=== PATIENT | female | born 1990 | race Two or more races ===

== ENCOUNTER → 2020-10-27 14:06 | Outpatient (BNVA) | payer OTHER, SELFPAY | PROVIDERS: PCP Internal Medicine; Visit Provider Obstetrics & Gynecology | DX: Z13.89 Encounter for screening for other disorder (principal) | CPT/HCPCS: 58301; 99212 ==

== ENCOUNTER → 2021-02-04 11:29 | Outpatient (BNVA) | payer OTHER, SELFPAY | PROVIDERS: PCP Internal Medicine; Visit Provider Internal Medicine | DX: E55.9 Vitamin D deficiency, unspecified (principal); E78.01 Familial hypercholesterolemia; E28.2 Polycystic ovarian syndrome; E03.9 Hypothyroidism, unspecified | CPT/HCPCS: 99212 ==

== ENCOUNTER 2021-02-05 07:49 | Outpatient (REF) | payer OTHER, SELFPAY ==
[2021-02-05 08:50] LABS: Glucose Fasting 94 mg/dL (60-99)
[2021-02-05 08:51] LABS: Estimated Average Glucose 100 mg/dL; Hemoglobin A1c % 5.1 %
[2021-02-05 09:16] LABS: Alanine Aminotransferase 16 U/L (0-31); Albumin Level 4.4 g/dL (3.5-5.0); Alkaline Phosphatase 81 U/L (39-117); Anion Gap 12 (12-20); Aspartate Amino Transferase 27 U/L (5-31); Bilirubin Total 1.1 mg/dL (0.0-1.0); Blood Urea Nitrogen 7 mg/dL (9-16); Calcium 9.6 mg/dL (8.4-10.2); Carbon Dioxide 23 mmol/L (22-29); Chloride 109 mmol/L (96-108); Cholesterol 329 mg/dL; Estimated Glomerular Filt Rate > 60; Glucose Random 94 mg/dL (60-115); HDL Cholesterol 48 mg/dL; LDL Cholesterol Calculated 263 mg/dl; Sodium 140 mmol/L (135-145); Total Protein 7.7 g/dL (6.5-8.0); Triglycerides 93 mg/dL
[2021-02-05 09:21] LABS: Free T4 (Free Thyroxine) 1.34 ng/dL (0.71-1.85); HCG Quantitative < 2 mIU/mL; Thyroid Stimulating Hormone 0.12 uIU/mL (0.32-4.0); Vitamin D 25-OH Total 12.2 ng/mL (>30)
[2021-02-05 10:05] LABS: Cortisol Random 11.1 ug/dL
[2021-02-05 10:50] LABS: Glucose 1 Hour 101 mg/dL
[2021-02-05 11:12] LABS: Glucose 2 Hour 107 mg/dL
[2021-02-06 11:50] LABS: LDL Cholesterol Direct 266 mg/dL (<100)
[2021-02-06 19:22] LABS: Sex Hormone Binding Globulin 58 nmol/L (17-124)
[2021-02-07 04:52] LABS: Follicle Stimulating Hormone 7.3 mIU/mL; Lutenizing Hormone 4.8 mIU/mL; Prolactin 10.4 ng/mL
[2021-02-07 09:21] LABS: DHEA Sulfate 160 mcg/dL (18-391)
[2021-02-11 13:16] LABS: Testosterone, Free 3.8 pg/mL (0.1-6.4); Testosterone, Total 40 ng/dL (2-45)
[2021-02-12 15:51] LABS: Androstenedione 147 ng/dL
[2021-02-14 03:42] LABS: Estradiol Free 1.08 pg/mL; Estradiol, Ultrasensitive 51 pg/mL
[2021-02-23 16:01] LABS: Adrenocorticotropic Hormone 20 pg/mL (6-50)
== END 2021-02-05 07:50 | disposition home or self-care (01) ==
LOC: HO.10HDL 07:49
PROVIDERS: Visit Provider Internal Medicine
DX: E28.2 Polycystic ovarian syndrome (principal); E03.9 Hypothyroidism, unspecified; E78.01 Familial hypercholesterolemia; E55.9 Vitamin D deficiency, unspecified
CPT/HCPCS: 36415; 80053; 80061; 82024; 82157; 82306; 82533; 82627; 82670; 82681; 83001; 83002; 83036; 83498; 83721; 84146; 84270; 84402; 84403; 84439; 84443; 84702

== ENCOUNTER 2021-02-20 09:00 | Outpatient (REF) | payer OTHER, SELFPAY ==
--- NOTE | ~2021-02-20 | US_ITS ---
EXAMINATION: US SOFT TISSUE NECK CLINICAL INFORMATION: Hypothyroidism COMPARISON: Previous thyroid ultrasound most recent the same day TECHNIQUE: Ultrasound of the neck soft tissues is performed with high- frequency matthew-scale imaging and color Doppler. FINDINGS: THYROID BED: Prior thyroidectomy. No residual thyroid tissue demonstrated in the thyroid bed. No cystic or solid nodules demonstrated in the thyroid bed. RIGHT NECK SOFT TISSUES: Scattered nodes are present bilaterally. The largest node on the right level 2 and demonstrates cortical thickening. Lymph nodes otherwise demonstrate normal architecture with normal fatty hilus, normal cortical thickness, and no cystic change or calcification. No abnormal color flow. The largest nodes are as follows: Level 2: 2.4 x 0.9 x 1.5 cm. Cortical thickening otherwise normal ras architecture. Level 2:1.4 x 0.5 x 1.9 cm. Normal abdominal architecture. LEFT NECK SOFT TISSUES: Scattered architecturally normal nodes are present. The nodes show normal fatty hilus, normal cortical thickness, and no cystic change or calcification. No abnormal color flow. The largest nodes are as follows: Level 1B: 2.1 x 0.6 x 1.4 cm. Normal ras architecture. US/US soft tiss head and/or neck IMPRESSION: 1. Bilateral cervical lymphadenopathy. There are 3 enlarged lymph nodes, one of which demonstrates abnormal ras architecture with cortical thickening. 2. If clinically indicated further evaluation of the neck soft tissues and nodes may be performed with CT soft tissue neck with intravenous contrast.
--- NOTE | ~2021-02-20 | US_ITS ---
EXAMINATION: US THYROID CLINICAL INFORMATION: Hypothyroidism, unspecified. COMPARISON: Ultrasound soft tissue head/neck thyroid dated 10/19/2018. TECHNIQUE: Linear transducer grayscale and color Doppler examination with attention to the region of the thyroid. FINDINGS: SIZE: Measurements of the thyroid lobes and nodules are given in sagittal, anteroposterior and transverse dimensions respectively. Right Thyroid Lobe: 4.0 x 1.4 x 0.9 cm, volume 2.5 mL. Previously 4.5 x 1.5 x 1.2 cm, volume 4.2 mL. Parenchyma: The gland echotexture is heterogeneous. Thyroid vascularity is increased. Left Thyroid Lobe: 4.0 x 1.3 x 1.5 cm, volume 4.1 mL. Previously 4.2 x 1.1 x 1.5 cm, volume 3.6 mL. Parenchyma: The gland echotexture is heterogeneous. Thyroid vascularity is increased. Isthmus: 0.17 cm in maximum AP dimension. Previously 0.3 cm. Comparison of the nodules with prior exam is difficult. Estimated total number of nodules greater than or equal to 1 cm: 0. Customer Service Sales Consultant nodules versus areas of gland heterogeneity are described as follows: 1. Location: Right inferior. Size: 0.5 x 0.5 x 0.6 cm, volume 0.1 mL. Previously: Not seen on the previous study. Nodule characteristics: Composition: Spongiform (0). Echogenicity: Anechoic (0). Shape: Not taller than wide (0). Margins: Smooth (0). Echogenic Foci: None (0). ACR TI-RADS total points: 0 ACR TI-RADS category: 1 2. Location: Right inferior. Size: 0.7 x 0.5 x 0.5 cm, volume 0.1 mL. Previously: 0.8 x 0.5 x 0.5 cm, volume 0.1 mL. Nodule characteristics: Composition: Spongiform (0). Echogenicity: Anechoic (0). Shape: Not taller than wide (0). Margins: Smooth (0). Echogenic Foci: None (0). ACR TI-RADS total points: 0 ACR TI-RADS category: 1 Significant change in size (>/= 20% in 2 dimensions and minimal increase of 2 mm or 50% or greater increase in volume): Change in features: Change in ACR TI-RADS risk category: 3. Location: Left mid. Size: 0.6 x 0.61 x 0.4 cm, volume 0.1 mL. Previously: 0.5 x 0.4 x 0.4 cm, volume 0.04 mL. Nodule characteristics: Composition: Spongiform (0). Echogenicity: Anechoic (0). Shape: Not taller than wide (0). Margins: Smooth (0). Echogenic Foci: None (0). ACR TI-RADS total points: 0 ACR TI-RADS category: 1 Significant change in size (>/= 20% in 2 dimensions and minimal increase of 2 mm or 50% or greater increase in volume): Change in features: Change in ACR TI-RADS risk category: NODES: See separate soft tissue neck ultrasound performed the same day. US/US thyroid IMPRESSION: Small heterogeneous hypervascular thyroid gland. Bilateral small nodules versus areas of gland heterogeneity. Comparison of nodules with previous exam is difficult. ACR TI-RADS RECOMMENDATION REFERENCE: Ultrasound-guided fine-needle aspiration, followup ultrasound, no further follow up. * TR1 (0 point) and TR 2 (2 points): No FNA or follow up * TR3 (3 points): FNA if more than or equal to 2.5 cm in maximum dimension, followup ultrasound in 1, 3 and 5 years if 1.5 to 2.4 cm in maximum dimension. * TR4 (4-6 points): FNA if more than or equal to 1.5 cm in maximum dimension, followup ultrasound in 1, 2, 3 and 5 years if 1 to 1.4 cm in maximum dimension. * TR5 (more than or equal to 7 points): FNA if more than or equal to 1 cm in maximum dimension, followup ultrasound every year for 5 years if 0.5 to 0.9 cm in maximum dimension. * TR3, TR4 or TR5 nodules that are below the size threshold for follow up receive no follow up.
== END 2021-02-20 09:01 | disposition home or self-care (01) ==
LOC: HO.HMGCX 09:00
PROVIDERS: PCP Internal Medicine; Visit Provider Internal Medicine
DX: E03.9 Hypothyroidism, unspecified (principal)
CPT/HCPCS: 76536

== ENCOUNTER 2021-04-07 07:45 | Outpatient (REF) | payer OTHER, SELFPAY ==
[2021-04-07 11:41] LABS: MANUAL DIFF FLAG NO
[2021-04-07 11:45] LABS: Basophils Absolute Auto 0.1 X10*3/uL (0.0-0.2); Basophils Percent Auto 0.5 % (0-2); Eosinophils Absolute Auto 0.2 X10*3/uL (0.0-0.4); Eosinophils Percent Auto 2.4 % (0-4); Hematocrit 32.8 % (37.0-47.0); Hemoglobin 10.2 g/dl (12.0-16.0); Imm Gran Abs Auto 0.02 X10*3/uL (0.00-0.03); Imm Gran Pct Auto 0.2 % (0.0-0.4); Lymphocytes Absolute Auto 2.3 X10*3/uL (1.2-4.9); Lymphocytes Percent Auto 24.7 % (20-40); Mean Corpuscular HGB Conc 31.1 g/dl (31.0-35.0); Mean Corpuscular Hemoglobin 25.5 pg (27.0-33.0); Mean Platelet Volume 9.7 fL (9.4-12.3); Monocytes Absolute Auto 0.6 X10*3/uL (0.1-1.2); Monocytes Percent Auto 6.7 % (2-11); Neutrophils Percent Auto 65.5 % (45-73); Platelet Count 413 X10*3/uL (160-400); Red Cell Distribution Width 16.5 % (11.0-16.0); White Blood Count 9.2 X10*3/uL (4.8-10.8)
[2021-04-07 12:28] LABS: Erythrocyte Sedimentation Rate 23 MM/HR (0-20)
[2021-04-07 12:31] LABS: Free T4 (Free Thyroxine) 1.22 ng/dL (0.71-1.85); Thyroid Stimulating Hormone 0.16 uIU/mL (0.32-4.0)
[2021-04-07 12:34] LABS: Alanine Aminotransferase 12 U/L (0-31); Albumin Level 4.3 g/dL (3.5-5.0); Alkaline Phosphatase 87 U/L (39-117); Aspartate Amino Transferase 14 U/L (5-31); Bilirubin Direct 0.3 mg/dL (0.0-0.5); Total Protein 7.5 g/dL (6.5-8.0)
[2021-04-09 05:31] LABS: Triiodothyronine T3 Total 104 ng/dL (76-181)
[2021-04-10 10:42] LABS: Anti Nuclear Antibody Screen POSITIVE (NEGATIVE); Anti Nuclear Antibody Titer 1:40 titer
== END 2021-04-07 07:46 | disposition home or self-care (01) ==
LOC: HO.HMGCLDS 07:45
PROVIDERS: Absent Provider Internal Medicine; PCP Internal Medicine; Visit Provider Psychiatry & Neurology Neurology
DX: E03.9 Hypothyroidism, unspecified (principal); D64.9 Anemia, unspecified
CPT/HCPCS: 36415; 80076; 84439; 84443; 84480; 85025; 85652; 86038; 86039

== ENCOUNTER 2021-05-22 15:44 | Emergency (ER) | payer OTHER, SELFPAY ==
--- NOTE | 2021-05-22 15:50 | ED.PSYCH ---
HPI - Psych General Chief Complaint: Psychiatric Symptoms Stated Complaint: CRISIS Time Seen by Provider: 05/22/21 15:49 Source: patient Mode of arrival: ambulatory Limitations: no limitations History of Present Illness HPI Narrative: This is a 31-year-old female past medical history significant for hypothyroidism, depression and anxiety presenting with anxiety, depression and suicidal ideaiton with plan X1 week. Patient reports to me that lately she has been having issues with her spouse, causing relationship complex. She tells me she lives at home with her spouse and 3 children she feels safe at home however there are relationship issues that have been occurring over the past week. She tells me I do not know how to cope with these issues . She states that recently she was started on Lexapro she was initially on 5 mg and she has been titrated up to 10 mg in today was her 1st day taking 20 mg with. She tells me that she feels as though the Lexapro is working however when this relationship issue arose she feels as though Lexapro was not enough. She tells me that she is suicidal, she called the suicide hotline a few days ago, she is feeling hopeless. She tells me that she has been thinking about her plan at this time she has 2 to from plan she is considering 1 of them is driving her car [place] a [place], [place]. Her other plan is to financial services associate a street and get hit by a car. However, she tells me that she has not followed through with these plans because of these plans to not successfully happen she will be injured and reliant on others which she does not want. She tells me that she saw her PCP yesterday who is aware of her condition. She tells me that she was set up to see a therapist on June 09 through [facility]. She tells me at times she hears sounds like things dropping on the ground and at times she sees patients shadows in the room which caused her to go back and check to see if somebody is really there. She denies tactile hallucinations. She also denies drugs, alcohol and tobacco use. She has no medical complaints at this time. No homicidal ideation. Patient has no previous psychiatric admissions. Patient was brought down from a routine neuro appointment and her provider was concerned for her well-being. At this time patient will be placed on a Section 12 to ensure patient's safety as she is in imminent threat to herself. complaint: suicidal ideation, feels depressed, anxiety and hallucinations (visual and auditory) Onset (ago): week(s) (1) Duration: constant History of same: No Relieving factors: none Exacerbating factors: other (Relationship issues.) Context: new medication(s) (Her Lexapro dose was recently changed to 20 mg) Associated psychiatric symptoms: depression, suicidal ideation and racing thoughts Associated symptoms: denies other symptoms Treatments prior to arrival: none If self harm: admits thoughts of self harm and has plan Related Data Home Medications Medication Instructions Recorded Confirmed cetirizine 10 mg tablet (Zyrtec) 10 mg PO DAILY PRN 08/01/20 02/04/21 budesonide-formoterol HFA 160 2 puff PO BID 02/04/21 02/04/21 mcg-4.5 mcg/actuation aerosol inhaler (Symbicort) Previous Rx's Medication Instructions Recorded atorvastatin 80 mg tablet 80 mg PO BEDTIME 30 Days #30 tab 02/05/21 ezetimibe 10 mg tablet 10 mg PO DAILY 30 Days #30 tab 02/05/21 levothyroxine 75 mcg tablet 75 mcg PO DAILY 30 Days #30 tab 04/07/21 Ventolin HFA 90 mcg/actuation 2 puff INHALATION Q6H PRN #18 g NS 05/21/21 aerosol inhaler (albuterol sulfate) escitalopram oxalate 20 mg tablet 20 mg PO DAILY #30 tab 05/21/21 (Lexapro) ferrous fumarate 324 mg (106 mg 324 mg PO DAILY #30 tab 05/21/21 iron) tablet lorazepam 0.5 mg tablet 0.5 mg PO DAILY PRN #7 tab 05/21/21 Allergies Allergy/AdvReac Type Severity Reaction Status Date / Time pantoprazole Allergy Unknown chest pain Verified 02/04/21 11:44 diphenhydramine Allergy Hives Verified 02/04/21 11:44 [From Benadryl] esomeprazole [From NEXIUM] AdvReac Mild DIARRHEA Verified 02/04/21 11:44 birch trees Allergy Unknown Sneezing Uncoded 02/04/21 11:44 oak trees Allergy Unknown nasal Uncoded 02/04/21 11:44 congestion SEASONAL ALLERGIES Allergy Unknown UNKNOWN Uncoded 02/04/21 11:44 Review of Systems Review of Systems: Constitutional : No Fever, No Chills ENT/Mouth : No Ear Pain, No Nasal Congestion, No sore throat Eyes: No Eye Pain, No Swelling, No Redness Cardiovascular : No Chest Pain, No SOB Respiratory : No Cough, No Sputum, No Dyspnea Gastrointestinal : No Nausea, No Vomiting, No Diarrhea, No Hematochezia, No Melena Genitourinary : No Dysuria, No Urinary Frequency, No Hematuria Musculoskeletal : No Myalgias Skin : No Skin Lesions, No rash Neuro : No Weakness, No Numbness, No Paresthesias, No Dizziness, No Headache Psych : positive Anxiety, positive Depression, positive SI, No HI Heme/Lymph: No Lymphadenopathy Endocrine : No Polyuria, No Polydipsia All other systems reviewed and are negative Yes all other systems are reviewed and are negative [facility] Past Medical History Attestation statement: The following information was validated with the patient. Source: old records reviewed and nursing notes reviewed Medical History Allergy to cats Familial hypercholesterolemia Hypothyroidism Multiple environmental allergies PCOS (polycystic ovarian syndrome) Vitamin D deficiency Surgical History History of removal of ovarian cyst Family History Family History Father Hyperlipidemia Mother Hyperlipidemia Hypertension Diabetes CVD (cardiovascular disease) Social History Social History Alcohol intake: never Patient Tobacco Use Status: Never used Tobacco e-Cigarette/Vaping Use: Never Used Use of substances other than those prescribed or required for medical reasons: No Advance Directives: No Advance Directives Information Provided: Yes Physical Exam Vital Signs: Vital Signs: Last Vital Signs Temp 99.5 F 05/22/21 15:56 Pulse 83 05/22/21 15:56 Resp 16 05/22/21 15:56 BP 114/74 05/22/21 15:56 Pulse Ox 100 05/22/21 15:56 BMI result Body Mass Index 28.3 VSS Appearance: Alert.? Oriented X3.? No acute distress.? Head: Normocephalic, atraumatic, no step-offs or deformities Eyes: Pupils equal, round and reactive to light.? ENT: Pharynx normal.? Neck: Normal inspection.? Neck supple.? CVS: Normal heart rate and rhythm.? Pulses normal.? Respiratory: No respiratory distress.? Breath sounds normal.? Abdomen: Soft and nontender.? Skin: Skin warm and dry.? Normal skin color.? Normal skin turgor.? Extremities: No lower extremity edema.? No calf ttp. 5/5 strength to bilateral upper and lower extremities Neuro: Oriented X 3.? No motor deficit.? No sensory deficit. Cranial nerves 2-12 intact. Course Reevaluation(s) Reevaluation #1: Patient is noted to have leukocytosis however it appears as though this might be patient's baseline. She has a baseline anemia. Patient's bilirubin is noted to be slightly elevated however she is not complaining of abdominal pain. Urine negative. Urine toxicology negative. Ethanol negative. COVID negative. At this time patient will be placed in physician observation to allow more time for the behavioral health team to evaluate patient. At time that evaluation was started patient was common cooperative, no complaints. Physical examination unchanged from initial. At this time will continue to monitor. Time: 18:12 MDM - Psych MDM Narrative Medical decision making narrative: 1604 31 yo F presents w/ concerns of anxiety, depression, visual/auditory hallucinations and suicidal ideation with plan to drive off a bridge or financial services associate traffic. No previous SI attempts or history of SI. Recently her dose of lexapro was changed from 10mg --> 20 mg. Precipitating factor relationship problems. Physical examination benign. Plan at this time is to obtain basic labs, urine, urine , UA, ethanol, TALAVERA and put in a N consult for patient to be evaluated. Medical Records Attestation: I reviewed the patient's medical records. Lab Data Attestation: I reviewed the patient's lab results. Result diagrams: 05/22/21 16:52 05/22/21 16:52 Labs: Lab Results 05/22/21 05/22/21 05/22/21 Range/Units 16:52 16:52 16:52 WBC 11.3 H (4.8-10.8) X10*3/uL RBC 4.66 (4.20-5.50) X10*6/uL Hgb 11.4 L (12.0-16.0) g/dl Hct 36.5 L (37.0-47.0) % MCV 78.3 L (80.0-98.0) fL MCH 24.5 L (27.0-33.0) pg MCHC 31.2 (31.0-35.0) g/dl RDW 16.6 H (11.0-16.0) % Plt Count 493 H (160-400) X10*3/uL MPV 8.6 L (9.4-12.3) fL Immature Gran % (Auto) 0.3 (0.0-0.4) % Neut % (Auto) 67.0 (45-73) % Lymph % (Auto) 23.4 (20-40) % Gilmer % (Auto) 6.3 (2-11) % Eos % (Auto) 2.5 (0-4) % Baso % (Auto) 0.5 (0-2) % Lymph # (Auto) 2.7 (1.2-4.9) X10*3/uL Gilmer # (Auto) 0.7 (0.1-1.2) X10*3/uL Eos # (Auto) 0.3 (0.0-0.4) X10*3/uL Baso # (Auto) 0.1 (0.0-0.2) X10*3/uL Abs Immat Gran (auto) 0.03 (0.00-0.03) X10*3/uL Absolute Neuts (auto) 7.6 (2.0-8.3) x10*3/uL Absolute Nucleated RBC 0.000 (0.0-0.012) X10*3/uL Nucleated RBC % (auto) 0.0 (0.0-0.2) /100WBC Sodium 137 (135-145) mmol/L Potassium 4.2 (3.3-5.1) mmol/L Chloride 106 (96-108) mmol/L Carbon Dioxide 24 (22-29) mmol/L Anion Gap 11 L (12-20) BUN 9 (9-16) mg/dL Creatinine 0.85 (0.5-1.4) mg/dL Estim Creat Clear Calc 99.4 Estimated GFR > 60 Random Glucose 86 (60-115) mg/dL Calcium 10.1 (8.4-10.2) mg/dL Magnesium 2.5 (1.6-2.6) mg/dL Total Bilirubin 1.2 H (0.0-1.0) mg/dL AST 22 D (5-31) U/L ALT 18 (0-31) U/L Alkaline Phosphatase 104 (39-117) U/L Total Protein 8.7 H (6.5-8.0) g/dL Albumin 4.8 (3.5-5.0) g/dL Urine Opiates Screen (Not Detect) Urine Fentanyl Screen (Not Detect) Ur Barbiturates Screen (Not Detect) Ur Phencyclidine Scrn (Not Detect) Ur Amphetamines Screen (Not Detect) U Benzodiazepines Scrn (Not Detect) Urine Cocaine Screen (Not Detect) U Marijuana (THC) Screen (Not Detect) Ethyl Alcohol mg/dL COVID-19 ([facility]) Negative (Negative) COVID-19 Clin Com See Note 05/22/21 05/22/21 Range/Units 16:52 17:05 WBC (4.8-10.8) X10*3/uL RBC (4.20-5.50) X10*6/uL Hgb (12.0-16.0) g/dl Hct (37.0-47.0) % MCV (80.0-98.0) fL MCH (27.0-33.0) pg MCHC (31.0-35.0) g/dl RDW (11.0-16.0) % Plt Count (160-400) X10*3/uL MPV (9.4-12.3) fL Immature Gran % (Auto) (0.0-0.4) % Neut % (Auto) (45-73) % Lymph % (Auto) (20-40) % Gilmer % (Auto) (2-11) % Eos % (Auto) (0-4) % Baso % (Auto) (0-2) % Lymph # (Auto) (1.2-4.9) X10*3/uL Gilmer # (Auto) (0.1-1.2) X10*3/uL Eos # (Auto) (0.0-0.4) X10*3/uL Baso # (Auto) (0.0-0.2) X10*3/uL Abs Immat Gran (auto) (0.00-0.03) X10*3/uL Absolute Neuts (auto) (2.0-8.3) x10*3/uL Absolute Nucleated RBC (0.0-0.012) X10*3/uL Nucleated RBC % (auto) (0.0-0.2) /100WBC Sodium (135-145) mmol/L Potassium (3.3-5.1) mmol/L Chloride (96-108) mmol/L Carbon Dioxide (22-29) mmol/L Anion Gap (12-20) BUN (9-16) mg/dL Creatinine (0.5-1.4) mg/dL Estim Creat Clear Calc Estimated GFR Random Glucose (60-115) mg/dL Calcium (8.4-10.2) mg/dL Magnesium (1.6-2.6) mg/dL Total Bilirubin (0.0-1.0) mg/dL AST (5-31) U/L ALT (0-31) U/L Alkaline Phosphatase (39-117) U/L Total Protein (6.5-8.0) g/dL Albumin (3.5-5.0) g/dL Urine Opiates Screen Not Detected (Not Detect) Urine Fentanyl Screen Not Detected (Not Detect) Ur Barbiturates Screen Not Detected (Not Detect) Ur Phencyclidine Scrn Not Detected (Not Detect) Ur Amphetamines Screen Not Detected (Not Detect) U Benzodiazepines Scrn Not Detected (Not Detect) Urine Cocaine Screen Not Detected (Not Detect) U Marijuana (THC) Screen Not Detected (Not Detect) Ethyl Alcohol < 10 mg/dL COVID-19 ([facility]) (Negative) COVID-19 Clin Com Critical Care Time Critical Care Time Critical Care Time: No Discharge Plan Discharge Clinical Impression: Suicidal ideation, Acute anxiety, Depression Patient Disposition: Still a Patient Prescriptions: No Action atorvastatin 80 mg tablet 80 mg PO BEDTIME 30 Days Qty: 30 RF: 11 ezetimibe 10 mg tablet 10 mg PO DAILY 30 Days Qty: 30 RF: 11 levothyroxine 75 mcg tablet 75 mcg PO DAILY 30 Days Qty: 30 RF: 3 cetirizine [Zyrtec] 10 mg tablet 10 mg PO DAILY PRNRF: 0 albuterol sulfate [Ventolin HFA] 90 mcg/actuation HFA aerosol inhaler 2 puff inhalation Q6H PRN (Reason: shortness of breath or wheezing) Qty: 18 RF: 1 ferrous fumarate 324 mg (106 mg iron) tablet 324 mg PO DAILY Qty: 30 RF: 3 lorazepam 0.5 mg tablet 0.5 mg PO DAILY PRN (Reason: anxiety) Qty: 7 RF: 0 escitalopram oxalate [Lexapro] 20 mg tablet 20 mg PO DAILY Qty: 30 RF: 2 budesonide-formoterol [Symbicort] 160-4.5 mcg/actuation HFA aerosol inhaler 2 puff PO BID RF: 0
[2021-05-22 15:56] VITALS: BP 114/74; PULSE 83; RESP 16; TEMP 37.5; O2SAT 100; BMI 28.3
[2021-05-22] MEDS: LORazepam 1 MG TABLET PO (16:05)
--- NOTE | 2021-05-22 16:50 | PC.NURSE ---
Smart sheet sent to [facility]
[2021-05-22 16:59] LABS: MANUAL DIFF FLAG NO
[2021-05-22 17:00] LABS: Basophils Absolute Auto 0.1 X10*3/uL (0.0-0.2); Basophils Percent Auto 0.5 % (0-2); Eosinophils Absolute Auto 0.3 X10*3/uL (0.0-0.4); Eosinophils Percent Auto 2.5 % (0-4); Hematocrit 36.5 % (37.0-47.0); Hemoglobin 11.4 g/dl (12.0-16.0); Imm Gran Abs Auto 0.03 X10*3/uL (0.00-0.03); Imm Gran Pct Auto 0.3 % (0.0-0.4); Lymphocytes Absolute Auto 2.7 X10*3/uL (1.2-4.9); Lymphocytes Percent Auto 23.4 % (20-40); Mean Corpuscular HGB Conc 31.2 g/dl (31.0-35.0); Mean Corpuscular Hemoglobin 24.5 pg (27.0-33.0); Mean Corpuscular Volume 78.3 fL (80.0-98.0); Mean Platelet Volume 8.6 fL (9.4-12.3); Monocytes Absolute Auto 0.7 X10*3/uL (0.1-1.2); Monocytes Percent Auto 6.3 % (2-11); Neutrophils Absolute Auto 7.6 x10*3/uL (2.0-8.3); Platelet Count 493 X10*3/uL (160-400); Red Blood Count 4.66 X10*6/uL (4.20-5.50); Red Cell Distribution Width 16.6 % (11.0-16.0); White Blood Count 11.3 X10*3/uL (4.8-10.8)
[2021-05-22 17:13] LABS: Ethanol < 10 mg/dL
[2021-05-22 17:17] LABS: Alanine Aminotransferase 18 U/L (0-31); Albumin Level 4.8 g/dL (3.5-5.0); Alkaline Phosphatase 104 U/L (39-117); Anion Gap 11 (12-20); Aspartate Amino Transferase 22 U/L (5-31); Bilirubin Total 1.2 mg/dL (0.0-1.0); Blood Urea Nitrogen 9 mg/dL (9-16); Calcium 10.1 mg/dL (8.4-10.2); Carbon Dioxide 24 mmol/L (22-29); Chloride 106 mmol/L (96-108); Creatinine Clr Calc Pharmacy 99.4; Estimated Glomerular Filt Rate > 60; Glucose Random 86 mg/dL (60-115); Magnesium 2.5 mg/dL (1.6-2.6); Potassium 4.2 mmol/L (3.3-5.1); Sodium 137 mmol/L (135-145); Total Protein 8.7 g/dL (6.5-8.0)
[2021-05-22 17:18] LABS: COVID-19 Test Negative (Negative)
[2021-05-22 17:27] LABS: Amphetamine Screen Urine Not Detected (Not Detect); Barbiturates, Urine Not Detected (Not Detect); Benzodiazepines Screen Urine Not Detected (Not Detect); Cannabinoid Screen Urine Not Detected (Not Detect); Cocaine Screen Urine Not Detected (Not Detect); Fentanyl, urine Not Detected (Not Detect); Opiate Screen Urine Not Detected (Not Detect); Phencyclidine Screen Urine Not Detected (Not Detect)
[2021-05-22 21:22] LABS: Appearance Urine CLEAR; Color Urine YELLOW; Glucose Urine UA NEG (NEG); Leukocyte Esterase Urine 1+ (NEG); Nitrite Urine NEG (NEG); PH 5.5 (5.0-8.0); Specific Gravity - Urine >= 1.030 (1.005-1.025); UACC Culture Trigger YES; Urine Blood NEG (NEG); Urine Ketones NEG (NEG); Urine Protein NEG (NEG-TRACE)
[2021-05-22 21:33] LABS: Bacteria Urine 2+ /LPF; Mucus Urine 1+ /LPF; Squamous Epithelial Cell Urine 1+ /LPF
--- NOTE | 2021-05-23 12:29 | MHC.CARE ---
CARE Team contacts pt as a follow up to her visit to the ED yesterday.? Pt stated that she had a panic attack this morning but was able to manage it using some intervention techniques such as breathing exercises to make the panic attack manageable.? She stated she is feeling good today, ?in a better place?.? She stated that she has people around her should she have another panic attack.? Pt was advised that the [facility] referral was submitted and that they will be calling her for an intake.
--- NOTE | 2021-05-25 12:31 | MHC.CARE ---
[id number] Dr Young who had referred patient to the ED last week for evaluation, wanted to provide some additional information in addition, stated that she patient gave him permission to speak to her family or providers about her situation as she approached him for help. By report, is a family friend and has known patient for 8 years, described patient as appearing to have a long history of anxiety with panic attacks, possibly depression has been resistant to counseling. Has isolated from her natural supports and has paranoid thoughts mostly related to believing her is cheating on her as evidenced by spam calls to the home or a if any woman speaks to him, cannot be convinced otherwise. Said that at this point her presentation is acute and he believes she needs more help, possibly inpatient care. Dr. Young added patient shared with him that she recently took the car in the middle of the night and drive to a bridge where she considered driving her car off. Last week on she told her in-laws to take her children and told her not to come home so they have been staying with his parents; this was not communicated with the evaluation clinician last week. Patient was advised by Dr. Young she cannot be alone during this time so her sister came to stay for the weekend. Of note, her sister and parents are not supportive of mental health issues, treatment or medications. 1200 follow up call to patient, she stated that she is still struggling with panic attacks and some difficulty sleeping, wakes up feeling, weird, not myself, takes a while to become grounded again. Patient reported that her and children came home last night and the plan is for them to stay, stated that she did not want her children to witness a panic attack as it may traumatize them. Patient denied any suicidal thoughts, said she has not been considering that as a solution, feels safe and is trying to continue with her normal routines. Has one Ativan left, pharmacy would not fill the new Rx for twice daily because the original was for once daily, has been trying to get hold of her PCP to call pharmacy. was called by PHP this morning, she reported that she was unable to commit because she has appointments scheduled this week. Encouraged her to call back and schedule an intake as it would not likely be until next week, she agreed. Patient's was with her during the call and is aware that Dr. Young is concerned and that he can call CARE Team, Crisis or bring his back to the ED. Tool And Fixture Repairer, Radha Martinez [facility] consulted Patient was put on alert with [facility] Crisis.
== END 2021-05-22 19:51 | disposition home or self-care (01) ==
PROVIDERS: Physician Assistant; Emergency Provider Emergency Medicine Emergency Medical Services; PCP Internal Medicine
DX: F32.A Depression, unspecified (principal); R45.851 Suicidal ideations; F41.9 Anxiety disorder, unspecified; Z20.822 Contact with and (suspected) exposure to COVID-19; R44.0 Auditory hallucinations; R44.1 Visual hallucinations; Z72.89 Other problems related to lifestyle; Z63.0 Problems in relationship with spouse or partner; Z79.899 Other long term (current) drug therapy
CPT/HCPCS: 80053; 80307; 81001; 82077; 83735; 85025; 87086; 87635; 99284; 99285

== ENCOUNTER → 2021-06-17 07:40 | Outpatient (BNVA) | payer OTHER, SELFPAY | PROVIDERS: PCP Internal Medicine; Visit Provider Internal Medicine ==

== ENCOUNTER 2021-06-29 10:15 | Outpatient (RCR) | payer OTHER, SELFPAY ==
[2021-06-02 12:50] VITALS: BMI 29.1
--- NOTE | 2021-06-02 13:20 | PC.NURSE ---
Patient is a 31 year old [employer]ah[employer] female who was referred to [facility] by the Crisis Care Team in the [facility] ER. Patient stated she was initially at a neurology appointment however had a panic attack during the appointment and was referred to [facility] ER for a crisis evaluation. Patient reports she has been struggling with severe panic attacks for the last several weeks experiencing 2-3 panic attacks daily. She stated that she had her first panic attack 2 years ago and at the time did not know what it was. She stated for the past 2 days she has experienced 1 panic attack daily. Patient reports feelings of depression and feeling overwhelmed. She is having marital issues as she does not understand her. Patient reports she feels she is a burden to those around her. Patient is taking a leave of absence from work to work on her mental health at [facility]. Patient is alert and oriented x4. Calm and cooperative. Presents with depressed mood and affect. Denied SI. Patient reports recent medication change as Lexapro was d/c and Prozac was added. Patient received a prescription for Lorazepam in the ER #14 tabs on 05/25/21 and patient reports she took the last one last Tuesday and is not on this currently. Maite Dela Cruz NP aware. Patient also reports having a history of chest pain and reports experiencing this after having panic attacks. Reports current mild chest pain and a headache and relates this to anxiety. Patient does not want f/u care, she does not appear to be in any distress. Patient reports she has had a cardiac workup including a cardiac ultrasound d/t her history of chest pain and high cholesterol and has family history of cardiac issues specifically regarding her mother who had 2 heart attack prior to the age 45 and most recent third heart attack in 04/2021. Patient also reports her mother had a mild stroke 09/2020. Patient also sees a neurologist. Maite Dela Cruz NP is aware. Reconciled patient medications with patient and patient's pharmacy. Patient reports taking medications as prescribed. Emailed patient per her request information regarding panic attacks, calm breathing, and sleep hygiene and gave verbal education as well. Emailed patient a copy of her safety plan.
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
--- NOTE | 2021-06-04 15:10 | PC.NURSE ---
Case opened in treatment team.
--- NOTE | 2021-06-05 14:31 | PC.NURSE ---
I called and spoke to pt. She said she is feeling supported and doing well in groups. She said she has an intake a t [facility] in [place] on 06/09, Tuesday, and will not attend [facility] that day. She will plan to discharge on 06/16, after 10 days of tx. She also said that her neurologist, Dr. Bimal Young, here at [facility] would like to talk to Maite Dela Cruz APRN about medications. I sent Maite a secure message with Dr. Young's cell phone number (provided by pt) and asked if she might be able to do so. Pt said she and her are also in process of scheduling couples therapy with a therapist she found in [place] (Dr. Arana), who might better understand their cultural background and issues.
--- NOTE | 2021-06-11 13:35 | HO.PHPPROGNO ---
Subjective Subjective Date of Service: 06/11/21 Reason For Visit: Depression, Anxiety, SI Interim History: I evaluated the pt this morning and upon interview she reports she is still having panic attacks, but that clonidine will help her fall asleep within 30 min, ?makes me super sleepy? and ?calms my body.? Has fewer nightmares, still wakes up. She discussed her marital discord, says her is trying to repair their relationship but ?at the same time i?m not there yet.? Says his efforts ?doesn?t take away from all the pain I endured in the first place.? Pt continues to endorse depressed mood, has been binge eating ?a lot? and at times ?ignoring responsibilities,? ?tawanda detaching myself from my reality.? Says her body is ?just exhausted.? Pt continues to report her depression is ?not good.? Says due to anxiety she feels ?super on the edge? and she has been isolating, withdrawing from family. Says ?a lot of noise still really bothers me? and she is still having crying episodes. Now on waitlist for couple?s therapy. Medication Compliance: Yes Side effects from medications: No Attending Groups: Yes Review of Systems Acute medical concerns: No Medical Review of Systems: unchanged Mental Status Exam Mental Status Exam Narrative: A&O. Well groomed, overweight. Good eye contact, attentive. No Tics or Tremors. No abnormal involuntary movements. Activated, cooperative, engaged. Non-pressured speech, spontaneous with regular rate and rhythm, normal volume and prosody. No prolonged speech latency or dysarthria. Mood is ?depressed,? anxious, affect is tearful. Denies SI/SIB/HI upon inquiry. Denies A/VH or delusional thought content. Thoughts are perseverative, at times difficult to redirect. No known cognitive or memory impairment. Insight/ Judgment? adequate, however pt distress at times appears incongruent with reality. Diagnostics Vital Signs (24Hr): BMI result Body Mass Index 29.1 Assessment & Plan Assessment & Plan (1) Panic disorder without agoraphobia: Status: Acute Code(s): F41.0 - Panic disorder [episodic paroxysmal anxiety] (2) Major depressive disorder, recurrent episode with anxious distress: Status: Acute Code(s): F33.9 - Major depressive disorder, recurrent, unspecified Plan Kayli is a 31 y.o. Female who carries a dx of panic disorder. She was recently assessed at [facility] on 05/22/21 due to worsening panic attacks (referred by neurologist, Dr. Young). Precipitating factors include marital conflict with her . Pt recently started prozac after experiencing worsening anxiety on lexapro 10 mg. Plan: Will continue prozac 20 mg and clonidine 0.1 mg QHS for nightmares, hyperarousal, anxiety, and poor sleep onset (sx are worse at night). Discussed case with Dr. Young, who reports pt's anxious distress is disproportionate to the situation and pt appears to have difficulty reality testing. He also confirmst that pt's sx are not new and have been present since her early 20s, however are worsening in past few months. Will start abilify 2 mg to target mood stability, consideration given to pt's reports of binge eating and concern for wt gain, family hx of hyperlipidemia. Patient educated on: diagnosis, medication risk/benefits and therapeutic strategies Informed Consent: understands Certification I certify that partial hospital treatment is medically necessary due to the symptoms and problems resulting from the patient's mental illness and the failure to treat the patient at the partial hospital level of care would likely result in the patient requiring inpatient psychiatric care which could not be prevented at a less intensive level of care. I spent minutes with the patient and/or on the patient floor today, greater than?50% of which was spent counseling/coordinating care. Discharge Plan Discharge Attending provider: Kirit Solis Medications: New aripiprazole [Abilify] 2 mg tablet 2 mg PO DAILY Qty: 14 0RF Changed clonidine HCl 0.1 mg tablet 0.1 mg PO BEDTIME Qty: 14 0RF No Action atorvastatin 80 mg tablet 80 mg PO BEDTIME 30 Days Qty: 30 11RF levothyroxine 75 mcg tablet 75 mcg PO DAILY 30 Days Qty: 30 3RF ezetimibe 10 mg tablet 10 mg PO BEDTIME 0RF ferrous fumarate [Ferrocite] 324 mg (106 mg iron) Tablet 324 mg PO DAILY 0RF fluoxetine [Prozac] 20 mg Capsule 20 mg PO DAILY 0RF naratriptan 2.5 mg Tablet 2.5 mg PO DAILY PRN (Reason: Migraine Headache) 0RF Rx Instructions: do not exceed 2 doses per 24 hrs metoclopramide HCl 10 mg Tablet 10 mg PO DAILY PRN (Reason: Nausea) 0RF budesonide-formoterol [Symbicort] 160-4.5 mcg/actuation Hfa Aerosol Inhaler 1 inh INHALATION BID 0RF cetirizine [Zyrtec] 10 mg tablet 10 mg PO DAILY PRN (Reason: Allergy Symptoms) 0RF albuterol sulfate [Ventolin HFA] 90 mcg/actuation HFA aerosol inhaler 2 puff inhalation Q6H PRN (Reason: shortness of breath or wheezing) Qty: 18 1RF
--- NOTE | 2021-06-16 11:42 | HO.PHPPROGNO ---
Subjective Subjective Date of Service: 06/16/21 Reason For Visit: Depression, Anxiety, SI Interim History: I evaluated the pt this morning. She reports in extensive detail her marital distress. She has been struggling with wt gain, has diagnosis of hypothyroidism and has struggled with this since the of her twins. Pt is tearful, says emotionally her conversations with her have hurt a lot. Pt felt she was in a rough place over the weekend, had tried to reach out to this radio script writer, feels she has no support from anybody. Pt continues to endorse sx of depression that impair her functioning, i.e. struggling with chores, having anxiety attacks. She has low self esteem, says I dont know what to do to make myself worthy, feels like she has disappointed him [her ] in many different avenues. Endorses passive SI, I want to escape my body and my life. She did not notice changes with the abilify, willing to trial a dose increase. Takes clonidine at bedtime, falls asleep but wakes back up, only getting 3 hours of sleep.? Medication Compliance: Yes Side effects from medications: No Attending Groups: Yes Review of Systems Acute medical concerns: No Medical Review of Systems: unchanged Mental Status Exam Mental Status Exam Narrative: A&O. Well groomed, overweight. Good eye contact, attentive. No Tics or Tremors. No abnormal involuntary movements. Activated, cooperative, engaged. Non-pressured speech, spontaneous with regular rate and rhythm, normal volume and prosody. No prolonged speech latency or dysarthria. Mood is ?depressed,? anxious, affect is tearful. Endorses passive SI without plan or intent/SIB/HI upon inquiry. Denies A/VH or delusional thought content. Thoughts are perseverative, at times difficult to redirect. No known cognitive or memory impairment. Insight/ Judgment? adequate, however pt distress at times appears incongruent with reality. Diagnostics Vital Signs (24Hr): BMI result Body Mass Index 29.1 Assessment & Plan Assessment & Plan (1) Panic disorder without agoraphobia: Status: Acute Code(s): F41.0 - Panic disorder [episodic paroxysmal anxiety] (2) Major depressive disorder, recurrent episode with anxious distress: Status: Acute Code(s): F33.9 - Major depressive disorder, recurrent, unspecified Plan Kayli is a 31 y.o. Female who carries a dx of panic disorder. She was recently assessed at [facility] on 05/22/21 due to worsening panic attacks (referred by neurologist, Dr. Young). Precipitating factors include marital conflict with her . Pt recently started prozac after experiencing worsening anxiety on lexapro 10 mg. Plan: Will continue prozac 20 mg and clonidine 0.1 mg QHS for nightmares, hyperarousal, anxiety, and poor sleep onset (sx are worse at night). Discussed case with Dr. Young, who reports pt's anxious distress is disproportionate to the situation and pt appears to have difficulty reality testing. He also confirmst that pt's sx are not new and have been present since her early 20s, however are worsening in past few months. Will start abilify 2 mg to target mood stability, consideration given to pt's reports of binge eating and concern for wt gain, family hx of hyperlipidemia. 06/16: Will increase abilify to 5 mg QAM to target depression, mood stability. Will increase clonidine to 0.1 mg BID PRN for anxiety, hyperarousal, poor sleep. Certification I certify that partial hospital treatment is medically necessary due to the symptoms and problems resulting from the patient's mental illness and the failure to treat the patient at the partial hospital level of care would likely result in the patient requiring inpatient psychiatric care which could not be prevented at a less intensive level of care. I spent minutes with the patient and/or on the patient floor today, greater than?50% of which was spent counseling/coordinating care. Discharge Plan Discharge Attending provider: Kirit Solis Medications: New aripiprazole [Abilify] 5 mg tablet 5 mg PO DAILY Qty: 14 0RF Continued clonidine HCl 0.1 mg tablet 0.1 mg PO BID Qty: 30 0RF No Action atorvastatin 80 mg tablet 80 mg PO BEDTIME 30 Days Qty: 30 11RF levothyroxine 75 mcg tablet 75 mcg PO DAILY 30 Days Qty: 30 3RF ezetimibe 10 mg tablet 10 mg PO BEDTIME 0RF ferrous fumarate [Ferrocite] 324 mg (106 mg iron) Tablet 324 mg PO DAILY 0RF fluoxetine [Prozac] 20 mg Capsule 20 mg PO DAILY 0RF naratriptan 2.5 mg Tablet 2.5 mg PO DAILY PRN (Reason: Migraine Headache) 0RF Rx Instructions: do not exceed 2 doses per 24 hrs metoclopramide HCl 10 mg Tablet 10 mg PO DAILY PRN (Reason: Nausea) 0RF budesonide-formoterol [Symbicort] 160-4.5 mcg/actuation Hfa Aerosol Inhaler 1 inh INHALATION BID 0RF cetirizine [Zyrtec] 10 mg tablet 10 mg PO DAILY PRN (Reason: Allergy Symptoms) 0RF albuterol sulfate [Ventolin HFA] 90 mcg/actuation HFA aerosol inhaler 2 puff inhalation Q6H PRN (Reason: shortness of breath or wheezing) Qty: 18 1RF
--- NOTE | 2021-06-17 15:43 | PC.NURSE ---
I called and spoke to pt. Her insurance has approved 7 days of IOP, and she will start this on 06/19/21, as she has childcare issues tomorrow, 06/18. Pt asked if I can call and speak with her , Bimal (goes by oSuth) as well, and give an update on her progress. Pt informed me that she had her intake at [facility], and that she was told they have no med provider, as Dr. Madison left during [facility] a year a go. She also was not happy with the therapist she spoke to. We discussed other options for aftercare. I spoke to Wendy Pollard, advanced research programs director, and she placed a call to a former colleague (Tresa) who might have availability to see pt for therapy and might have a med provider to see as well. If this does not work, I will refer to [facility] or another agency. Pt is on board with this plan.
--- NOTE | 2021-06-19 13:33 | PC.NURSE ---
I called and spoke to pt at her request. Discussed IOP schedule. Pt reports continued depressed mood despite efforts to act opposite and apply coping skills. She reports a sense of apathy and low motivation. She reports eating away feelings, eating throughout the day to fill the void rather than in response to hunger. She talks about deep emotional pain from my past and a strong desire to feel better but frustration that she's not. She will see Maite Dela Cruz APRN today. She has a medical appt on Tuesday and will not be scheduled due to this.
--- NOTE | 2021-06-19 16:25 | PC.NURSE ---
At pt's request, I called and spoke to her , [place] (Bimal) with her on the call as well (3 way call). He expressed desire to help more, and asked for education about outpatient services. We discussed options and availability for private practice and [facility]. We discussed referral we are working on for pt to see a therapist at [facility] (therapist- Tresa). We also discuses ways pt might feel more supported, including her need to be heard and validated rather than needing help to solve a specific problem. Pt and her communicated respectfully and appeared to feel positively about the discussion.
--- NOTE | 2021-06-19 16:47 | PC.NURSE ---
I attempted to fax referral packet to [facility] several times, and received a busy signal each time.
--- NOTE | 2021-06-19 17:41 | P.PNPSP_ITS ---
Subjective Subjective Date of Service: 06/19/21 Reason For Visit: Depression, Anxiety, SI Interim History: I evaluated the pt this afternoon and she reports on abilify 5 mg, ?it definitely felt different than the smaller dose,? says she felt ?more clarity in my thoughts.? However, pt acknowledges that she is still haing difficulty with executive function and states ?im not having peace in my life.? Continues to reports distress from marital issues, having nightmares again. Says clonidine is no longer helping with sleep onset, took a second tab three hours later but then had to wake up again two hours later. Discloses that she has been having auditory perceptual disturbances, ?started hearing things again,? hearing ?random sounds? that are ?really, really loud? and says ?as im falling asleep I hear someone talking to me.? Says she has been binge eating but denies an increase in appetite, has hx of binge eating. Says on abilify ?initially it felt like my head was in a better place but anxiety and depression wins.? Has been having panic attacks.? Medication Compliance: Yes Side effects from medications: No Attending Groups: Yes Review of Systems Acute medical concerns: No Medical Review of Systems: unchanged Mental Status Exam Mental Status Exam Narrative: A&O. Well groomed, overweight. Good eye contact, attentive. No Tics or Tremors. No abnormal involuntary movements, rocking, tearful. Activated, cooperative, engaged. Non-pressured speech, spontaneous with regular rate and rhythm, normal volume and prosody. No prolonged speech latency or dysarthria. Mood is ?depressed,? anxious, affect is tearful. Endorses passive SI without plan or intent/SIB/HI upon inquiry. Discloses AH, denies VH or delusional thought content. Thoughts are perseverative, at times difficult to redirect. No known cognitive or memory impairment. Insight/ Judgment? adequate, however pt distress at times appears incongruent with reality. Diagnostics Vital Signs (24Hr): BMI result Body Mass Index 29.1 Assessment & Plan Assessment & Plan (1) Panic disorder without agoraphobia: Status: Acute Code(s): F41.0 - Panic disorder [episodic paroxysmal anxiety] (2) Major depressive disorder, recurrent episode with anxious distress: Status: Acute Code(s): F33.9 - Major depressive disorder, recurrent, unspecified Plan Kayli is a 31 y.o. Female who carries a dx of panic disorder. She was recently assessed [place] [facility] on 05/22/21 due to worsening panic attacks (referred by neurologist, Dr. Young). Precipitating factors include marital conflict with her . Pt recently started prozac after experiencing worsening anxiety on lexapro 10 mg. Plan: Will continue prozac 20 mg and clonidine 0.1 mg QHS for nightmares, hyperarousal, anxiety, and poor sleep onset (sx are worse at night). Discussed case with Dr. Young, who reports pt's anxious distress is disproportionate to the situation and pt appears to have difficulty reality testing. He also confirmst that pt's sx are not new and have been present since her early 20s, however are worsening in past few months. Will start abilify 2 mg to target mood stability, consideration given to pt's reports of binge eating and concern for wt gain, family hx of hyperlipidemia. 06/16: Will increase abilify to 5 mg QAM to target depression, mood stability. Will increase clonidine to 0.1 mg BID PRN for anxiety, hyperarousal, poor sleep. 06/19: Continue abilify 5 mg QAM and monitor for benefit Certification I certify that partial hospital treatment is medically necessary due to the symptoms and problems resulting from the patient's mental illness and the failure to treat the patient at the partial hospital level of care would likely result in the patient requiring inpatient psychiatric care which could not be prevented at a less intensive level of care. I spent minutes with the patient and/or on the patient floor today, greater than?50% of which was spent counseling/coordinating care. Discharge Plan Discharge Attending provider: Kirit Solis Medications: New aripiprazole [Abilify] 5 mg tablet 5 mg PO DAILY Qty: 14 0RF Continued clonidine HCl 0.1 mg tablet 0.1 mg PO BID Qty: 30 0RF No Action levothyroxine 75 mcg tablet 75 mcg PO DAILY 30 Days Qty: 30 3RF ferrous fumarate [Ferrocite] 324 mg (106 mg iron) Tablet 324 mg PO DAILY 0RF fluoxetine [Prozac] 20 mg Capsule 20 mg PO DAILY 0RF naratriptan 2.5 mg Tablet 2.5 mg PO DAILY PRN (Reason: Migraine Headache) 0RF Rx Instructions: do not exceed 2 doses per 24 hrs metoclopramide HCl 10 mg Tablet 10 mg PO DAILY PRN (Reason: Nausea) 0RF budesonide-formoterol [Symbicort] 160-4.5 mcg/actuation Hfa Aerosol Inhaler 1 inh INHALATION BID 0RF cetirizine [Zyrtec] 10 mg tablet 10 mg PO DAILY PRN (Reason: Allergy Symptoms) 0RF albuterol sulfate [Ventolin HFA] 90 mcg/actuation HFA aerosol inhaler 2 puff inhalation Q6H PRN (Reason: shortness of breath or wheezing) Qty: 18 1RF rosuvastatin 40 mg tablet 40 mg PO DAILY 90 Days Qty: 90 11RF ezetimibe 10 mg tablet 10 mg PO BEDTIME 30 Days Qty: 30 11RF cholecalciferol (vitamin D3) 50 mcg (2,000 unit) capsule 50 mcg PO DAILY 90 Days Qty: 90 11RF
--- NOTE | 2021-06-23 13:57 | PC.NURSE ---
I attempted to fax referral packet to [facility] again, with no luck (busy signal).
--- NOTE | 2021-06-24 14:00 | PC.NURSE ---
I spoke to the cancer program coordinator, Wendy Pollard. She has been working on referral for pt for services at [facility] ([facility]). Wendy said that it turns out [facility] doesn't take pt's insurance. Pt will have to be referred elsewhere. I called and spoke to pt about this. She agreed to a referral to another [facility] agency.
--- NOTE | 2021-06-24 14:41 | PC.NURSE ---
I called and put in a referral to [facility] for pt. I spoke to Jaqueline. I was informed that she would work on the referral. She also said they are havign a very difficult time getting appts for patients, so it might not happen until after the pt is discharged, at which point they will contact the pt with the intake date.
--- NOTE | 2021-06-24 14:43 | PC.NURSE ---
I received a message from Jaqueline at [facility] stating it might be 3 months before pt gets an intake appt due to her insurance and their staffing situation. I then called [facility] ([facility]), and spoke to Ninfa Barrett, who asked me to print and fill out referral packet. I did this, and faxed it to central intake at [facility].
--- NOTE | 2021-06-25 14:49 | P.PNPSP_ITS ---
Subjective Subjective Date of Service: 06/25/21 Reason For Visit: Depression, Anxiety, SI Interim History: I evaluated the pt this morning and upon inquiry she reports she has been having panic attacks that are so bad and feeling detached a lot. In group today she had to take a break to scream and cry, has been in so much pain. Has been crying. Discussed stress related paranoia. Has only been getting 2 hours of sleep a night. Energy is up and down. Has noticed a little bit of mental clarity on abilify. Taking clonidine 0.2 mg QHS without much benefit. Says I feel like im losing control over my reactions. Continues to discuss marital stress, I hate to feel like someone pushed me away, feels unworthy. Medication Compliance: Yes Side effects from medications: No Attending Groups: Yes Review of Systems Acute medical concerns: No Medical Review of Systems: unchanged Mental Status Exam Mental Status Exam Narrative: Well-developed, overweight female, in NAD.? Fully alert and attentive during encounter. Patient Appearance:?Well Grooomed and Appropriate Patient Orientation:?Person, Time and Situation Level of Consciousness:?Awake, Appropriate and Alert Patient Behavior:?Appropriate, Cooperative and Good Eye Contact Mood Description:?Appropriate and Anxious Affect Description:?Appropriate Patient Cognition Impaired:?No Ability to Follow Directions:?Excellent Speech Pattern:?Clear, Appropriate and Coherent Memory Description:?Intact Hallucinations:?None Delusions:?Not Present Thought Process:?Intact, Goal Oriented and Linear Thought Content:?positive for Intact, positive for Goal Oriented and positive for Linear Depressive Symptoms:?Increased Anxiety and Difficulty Sleeping Judgement:?Good Diagnostics Vital Signs (24Hr): BMI result Body Mass Index 29.1 Assessment & Plan Assessment & Plan (1) Major depressive disorder, recurrent episode with anxious distress: Status: Acute Code(s): F33.9 - Major depressive disorder, recurrent, unspecified (2) Panic disorder without agoraphobia: Status: Acute Code(s): F41.0 - Panic disorder [episodic paroxysmal anxiety] Plan Kayli has been having panic attacks, emotional dysregulation, and poor sleep. Says abilify and fluoxetine make her tired despite these both being energizing medications. Wants to trial taking these at bedtime. Discussed increasing fluoxetine due to high levels of anxiety, anxious distress.?Will continue clonidine 0.2 mg QHS. No safety concerns. Plan 1. Increase prozac to 40 mg and change abilify and prozac dosing to bedtime. 2. Continue with other medications as prescribed. 3. Client appears stable for discharge from [facility] at this time. 4. Client will follow up with outpatient providers going forward. Patient educated on: diagnosis, medication risk/benefits and therapeutic strategies Reason for contiued partial hosp. stay Substantial Risk for: harm to self, rapid decompensation and med/psych decompensation Certification I certify that partial hospital treatment is medically necessary due to the symptoms and problems resulting from the patient's mental illness and the failure to treat the patient at the partial hospital level of care would likely result in the patient requiring inpatient psychiatric care which could not be prevented at a less intensive level of care. I spent minutes with the patient and/or on the patient floor today, greater than?50% of which was spent counseling/coordinating care. Discharge Plan Discharge Attending provider: Kirit Solis Additional Instructions: Intake appointment at [place] [facility] ([facility]), [address] [place] [address] in [place], on , July 02, 2021 at 9am with Ketty Ross. IN person intake appointment for medication management at [facility] in [place] with Dr. Andra Mancilla on July 22 at 2pm. For questions regarding appointments at [facility], call Krista accounts payable payroll coordinator, at [phone]. Medications: New clonidine HCl 0.2 mg tablet 0.2 mg PO BEDTIME 30 Days Qty: 30 0RF aripiprazole [Abilify] 5 mg tablet 5 mg PO BEDTIME 30 Days Qty: 30 0RF buspirone 10 mg tablet 10 mg PO TID 30 Days Qty: 90 0RF Changed fluoxetine [Prozac] 20 mg Capsule 40 mg PO DAILY Qty: 30 0RF No Action levothyroxine 75 mcg tablet 75 mcg PO DAILY 30 Days Qty: 30 3RF ferrous fumarate [Ferrocite] 324 mg (106 mg iron) Tablet 324 mg PO DAILY 0RF naratriptan 2.5 mg Tablet 2.5 mg PO DAILY PRN (Reason: Migraine Headache) 0RF Rx Instructions: do not exceed 2 doses per 24 hrs metoclopramide HCl 10 mg Tablet 10 mg PO DAILY PRN (Reason: Nausea) 0RF budesonide-formoterol [Symbicort] 160-4.5 mcg/actuation Hfa Aerosol Inhaler 1 inh INHALATION BID 0RF cetirizine [Zyrtec] 10 mg tablet 10 mg PO DAILY PRN (Reason: Allergy Symptoms) 0RF albuterol sulfate [Ventolin HFA] 90 mcg/actuation HFA aerosol inhaler 2 puff inhalation Q6H PRN (Reason: shortness of breath or wheezing) Qty: 18 1RF rosuvastatin 40 mg tablet 40 mg PO DAILY 90 Days Qty: 90 11RF ezetimibe 10 mg tablet 10 mg PO BEDTIME 30 Days Qty: 30 11RF cholecalciferol (vitamin D3) 50 mcg (2,000 unit) capsule 50 mcg PO DAILY 90 Days Qty: 90 11RF Stand Alone Forms: Patient Portal Discharge page
--- NOTE | 2021-06-26 16:00 | PC.NURSE ---
Received a call from Krista at [facility] ([facility]). Pt has an intake appointment at [facility], [address] [place] [address] in [place], on June at 9am with Ketty Ross. IN person intake appointment for medication management at [facility] in [place] with Dr. Andra Mancilla on July 22 at 2pm. For questions regarding appointments at [facility], call Krista, exhibits coordinator, at [phone].
--- NOTE | 2021-06-29 14:04 | HO.PHPPROGNO ---
Subjective Subjective Date of Service: 06/29/21 Reason For Visit: Depression, Anxiety, SI Guardianship: No Medical Problems Affecting Mental Status: No Interim History: Kayli reports she is continuing with poor sleep, several hours per night. Has started taking the Abilify at night with the Prozac, it appears to be helping. Continues with panic attacks and anxiety. Reports a little effect with clonidine. No SI reported, no safety concerns. Medication Compliance: Yes Side effects from medications: Yes Attending Groups: Yes Review of Systems Acute medical concerns: No Medical Review of Systems: unchanged Review of Systems Review of Systems Yes all other systems are reviewed and are negative Constitutional: Reports no additional constitutional complaints Mental Status Exam Mental Status Exam Narrative: Well-developed, overweight female, in NAD. Fully alert and attentive during encounter. Patient Appearance: Well Grooomed and Appropriate Patient Orientation: Person, Time and Situation Level of Consciousness: Awake, Appropriate and Alert Patient Behavior: Appropriate, Cooperative and Good Eye Contact Mood Description: Appropriate and Anxious Affect Description: Appropriate Patient Cognition Impaired: No Ability to Follow Directions: Excellent Speech Pattern: Clear, Appropriate and Coherent Memory Description: Intact Hallucinations: None Delusions: Not Present Thought Process: Intact, Goal Oriented and Linear Thought Content: positive for Intact, positive for Goal Oriented and positive for Linear Depressive Symptoms: Increased Anxiety and Difficulty Sleeping Judgement: Good Diagnostics Vital Signs (24Hr): BMI result Body Mass Index 29.1 Assessment & Plan Assessment & Plan (1) Panic disorder without agoraphobia: Status: Acute Code(s): F41.0 - Panic disorder [episodic paroxysmal anxiety] Assessment and Plan: Continues with his panic attacks, reports that weekend was ?pretty bad?. Taking clonidine sporadically at night, as she does not find it completely effective. Reports Abilify and Prozac are now being taken at night, as they make her tired. Asked for medication, reports that benzodiazepines worked well, would like something that targets anxiety. Discussed medications, education provided regarding a variety of medications to help with anxiety/panic attacks, as well as therapeutic techniques. (2) Major depressive disorder, recurrent episode with anxious distress: Status: Acute Code(s): F33.9 - Major depressive disorder, recurrent, unspecified Assessment and Plan: Reports overall depressive symptoms are improving, although continues with panic attacks and anxiety. No SI reported, no thoughts of harm to self or others in any way. No safety concern. Plan 1. Add BuSpar 10 mg t.i.d.. 2. Continue with other medications as prescribed. 3. Client appears stable for discharge from [facility] at this time. 4. Client will follow up with outpatient providers going forward. Patient educated on: diagnosis, medication risk/benefits and therapeutic strategies Informed Consent: understands Reason for contiued partial hosp. stay Substantial Risk for: stable for discharge Certification I certify that partial hospital treatment is medically necessary due to the symptoms and problems resulting from the patient's mental illness and the failure to treat the patient at the partial hospital level of care would likely result in the patient requiring inpatient psychiatric care which could not be prevented at a less intensive level of care. I spent __35____ minutes with the patient and/or on the patient floor today, greater than?50% of which was spent counseling/coordinating care. Discharge Plan Discharge Attending provider: Kirit Solis Additional Instructions: Intake appointment at [facility] ([facility] [address] [place] [address] in [place], on June at 9am with Ketty Ross. IN person intake appointment for medication management at [facility] with Dr. Andra Mancilla on July 22 at 2pm. For questions regarding appointments at [facility], call Krista medical staff services coordinator, at [phone]. Medications: New clonidine HCl 0.2 mg tablet 0.2 mg PO BEDTIME 30 Days Qty: 30 0RF aripiprazole [Abilify] 5 mg tablet 5 mg PO BEDTIME 30 Days Qty: 30 0RF buspirone 10 mg tablet 10 mg PO TID 30 Days Qty: 90 0RF Changed fluoxetine [Prozac] 20 mg Capsule 40 mg PO DAILY Qty: 30 0RF No Action levothyroxine 75 mcg tablet 75 mcg PO DAILY 30 Days Qty: 30 3RF ferrous fumarate [Ferrocite] 324 mg (106 mg iron) Tablet 324 mg PO DAILY 0RF naratriptan 2.5 mg Tablet 2.5 mg PO DAILY PRN (Reason: Migraine Headache) 0RF Rx Instructions: do not exceed 2 doses per 24 hrs metoclopramide HCl 10 mg Tablet 10 mg PO DAILY PRN (Reason: Nausea) 0RF budesonide-formoterol [Symbicort] 160-4.5 mcg/actuation Hfa Aerosol Inhaler 1 inh INHALATION BID 0RF cetirizine [Zyrtec] 10 mg tablet 10 mg PO DAILY PRN (Reason: Allergy Symptoms) 0RF albuterol sulfate [Ventolin HFA] 90 mcg/actuation HFA aerosol inhaler 2 puff inhalation Q6H PRN (Reason: shortness of breath or wheezing) Qty: 18 1RF rosuvastatin 40 mg tablet 40 mg PO DAILY 90 Days Qty: 90 11RF ezetimibe 10 mg tablet 10 mg PO BEDTIME 30 Days Qty: 30 11RF cholecalciferol (vitamin D3) 50 mcg (2,000 unit) capsule 50 mcg PO DAILY 90 Days Qty: 90 11RF Stand Alone Forms: Patient Portal Discharge page Telehealth Telehealth Location of provider rendering services: practice address Location of patient: address on file Patient Identification confirmed using: Name, : Yes Telehealth method: video Patient verbally consented to treatment: Yes Patient verbally consented to billing insurance company: Yes Patient informed of any privacy concerns related to visit: Yes Time spent with patient (mins): 20
--- NOTE | 2021-06-29 14:29 | PC.NURSE ---
Patient scheduled to discharge from the program today. Feels good about discharge. Denied SI or thoughts to harm herself. Reviewed patient medications with patient. Patient reports taking medications as prescribed.
--- NOTE | 2021-07-17 17:49 | PC.NURSE ---
At pt's request, I called and spoke to her , [place] (Bimal) with her on the call as well (3 way call). He expressed desire to help more, and asked for education about outpatient services. We discussed options and availability for private practice and [facility]. We discussed referral we are working on for pt to see a therapist at [facility] (therapist- Tresa). We also discuses ways pt might feel more supported, including her need to be heard and validated rather than needing help to solve a specific problem. Pt and her communicated respectfully and appeared to feel positively about the discussion.
--- NOTE | 2021-07-21 11:51 | PC.NURSE ---
I attempted to fax referral packet to [facility] again, twice. Still received a busy signal.
== END 2021-06-29 23:59 | disposition home or self-care (01) ==
LOC: HO.PHPA 10:15
PROVIDERS: Visit Provider Psychiatry & Neurology Psychiatry
DX: F33.9 Major depressive disorder, recurrent, unspecified (principal); F41.0 Panic disorder [episodic paroxysmal anxiety]; Z79.899 Other long term (current) drug therapy
CPT/HCPCS: 90791; 90853

== ENCOUNTER 2021-07-13 07:39 | Outpatient (REF) | payer OTHER, SELFPAY ==
[2021-07-13 08:13] LABS: Estimated Average Glucose 105 mg/dL; Hemoglobin A1c % 5.3 %
[2021-07-13 08:27] LABS: Alanine Aminotransferase 27 U/L (0-31); Alkaline Phosphatase 103 U/L (39-117); Anion Gap 11 (12-20); Aspartate Amino Transferase 20 U/L (5-31); Bilirubin Total 0.4 mg/dL (0.0-1.0); Blood Urea Nitrogen 10 mg/dL (9-16); Calcium 9.3 mg/dL (8.4-10.2); Carbon Dioxide 23 mmol/L (22-29); Chloride 107 mmol/L (96-108); Cholesterol 379 mg/dL; Estimated Glomerular Filt Rate > 60; Glucose Random 91 mg/dL (60-115); HDL Cholesterol 61 mg/dL; Potassium 4.2 mmol/L (3.3-5.1); Sodium 137 mmol/L (135-145); Total Protein 7.5 g/dL (6.5-8.0); Triglycerides 423 mg/dL
[2021-07-13 08:49] LABS: Free T4 (Free Thyroxine) 1.03 ng/dL (0.71-1.85); Thyroid Stimulating Hormone 2.55 uIU/mL (0.32-4.0); Vitamin D 25-OH Total 8.1 ng/mL (>30)
[2021-07-13 10:22] LABS: Cortisol Random 14.5 ug/dL
[2021-07-14 13:16] LABS: Adrenocorticotropic Hormone 42 pg/mL (6-50)
[2021-07-14 23:27] LABS: DHEA Sulfate 141 mcg/dL (14-349); Follicle Stimulating Hormone 11.9 mIU/mL; Lutenizing Hormone 42.4 mIU/mL; Sex Hormone Binding Globulin 29 nmol/L (17-124)
[2021-07-15 00:47] LABS: LDL Cholesterol Direct 256 mg/dL (<100)
[2021-07-17 03:47] LABS: Estradiol Ultra Sensitive 252 pg/mL
[2021-07-17 17:46] LABS: Androstenedione 269 ng/dL
[2021-07-18 19:57] LABS: Testosterone, Total 42 ng/dL (2-45)
== END 2021-07-13 07:40 | disposition home or self-care (01) ==
LOC: HO.LAB 07:39
PROVIDERS: PCP Internal Medicine; Visit Provider Internal Medicine
DX: E78.01 Familial hypercholesterolemia (principal); E28.2 Polycystic ovarian syndrome; E03.9 Hypothyroidism, unspecified; E55.9 Vitamin D deficiency, unspecified
CPT/HCPCS: 36415; 80053; 80061; 82024; 82157; 82306; 82533; 82550; 82627; 82670; 83001; 83002; 83036; 83498; 83721; 84270; 84402; 84403; 84439; 84443

== ENCOUNTER 2021-07-17 16:16 | Emergency (ER) | payer OTHER, SELFPAY ==
[2021-07-17 16:30] VITALS: BP 88/52; PULSE 89; RESP 18; TEMP 36.5; O2SAT 99; BMI 30.7
[2021-07-17 16:53] LABS: MANUAL DIFF FLAG NO
[2021-07-17 16:55] LABS: Basophils Absolute Auto 0.1 X10*3/uL (0.0-0.2); Basophils Percent Auto 0.3 % (0-2); Eosinophils Absolute Auto 0.3 X10*3/uL (0.0-0.4); Eosinophils Percent Auto 1.6 % (0-4); Hematocrit 39.1 % (37.0-47.0); Hemoglobin 12.3 g/dl (12.0-16.0); Imm Gran Abs Auto 0.09 X10*3/uL (0.00-0.03); Imm Gran Pct Auto 0.5 % (0.0-0.4); Lymphocytes Absolute Auto 0.8 X10*3/uL (1.2-4.9); Lymphocytes Percent Auto 4.4 % (20-40); Mean Corpuscular HGB Conc 31.5 g/dl (31.0-35.0); Mean Corpuscular Hemoglobin 25.6 pg (27.0-33.0); Mean Corpuscular Volume 81.3 fL (80.0-98.0); Mean Platelet Volume 8.7 fL (9.4-12.3); Monocytes Absolute Auto 0.9 X10*3/uL (0.1-1.2); Monocytes Percent Auto 4.9 % (2-11); Neutrophils Absolute Auto 15.6 x10*3/uL (2.0-8.3); Neutrophils Percent Auto 88.3 % (45-73); Platelet Count 427 X10*3/uL (160-400); Red Blood Count 4.81 X10*6/uL (4.20-5.50); Red Cell Distribution Width 18.4 % (11.0-16.0); White Blood Count 17.7 X10*3/uL (4.8-10.8)
[2021-07-17 17:08] LABS: Anion Gap 15 (12-20); Blood Urea Nitrogen 11 mg/dL (9-16); Calcium 9.7 mg/dL (8.4-10.2); Carbon Dioxide 21 mmol/L (22-29); Chloride 103 mmol/L (96-108); Creatinine Clr Calc Pharmacy 104.7; Estimated Glomerular Filt Rate > 60; Glucose Random 107 mg/dL (60-115); Potassium 4.4 mmol/L (3.3-5.1); Sodium 135 mmol/L (135-145)
[2021-07-17 17:18] LABS: COVID-19 Test Negative (Negative); IDNOW Serial# 16C4AD1C
== END 2021-07-17 19:00 | disposition left against medical advice (07) ==
PROVIDERS: Emergency Provider Emergency Medicine
DX: R10.9 Unspecified abdominal pain (principal); R11.2 Nausea with vomiting, unspecified; R19.7 Diarrhea, unspecified; Z20.822 Contact with and (suspected) exposure to COVID-19
CPT/HCPCS: 80048; 85025; 87635; 99282; 99283

== ENCOUNTER 2021-07-17 19:01 | Emergency (ER) | payer OTHER, SELFPAY ==
--- NOTE | ~2021-07-17 | CT_ITS ---
EXAMINATION: CT ABDOMEN AND PELVIS WITH CONTRAST CLINICAL INFORMATION: Diffuse abdominal pain COMPARISON: 05/07/2018 TECHNIQUE: Multidetector volumetric images were obtained from the superior aspect of the liver through the pubic symphysis following administration 85 mL of Omnipaque 350 intravenous contrast. Sagittal and coronal reformatted images were obtained on the technologist's workstation. Oral contrast: No This CT examination was performed using dose optimization techniques as appropriate, variously including the following: *Automated exposure control *Adjustment of mA and/or kV according to patient size (this includes techniques or standardized protocols for targeted exams where dose is matched to indication/reason for exam; i.e. extremities or head) *Use of iterative reconstruction technique DLP: 790 mGy-cm FINDINGS: LUNG BASES: Bibasilar atelectasis. The visualized cardiac structures are unremarkable. LIVER, GALLBLADDER, AND BILIARY TREE: The liver is normal in size, shape, and attenuation. No focal hepatic lesion or biliary ductal dilatation is present. The gallbladder is unremarkable with no evidence of radiopaque gallstones, gallbladder wall thickening, or obvious pericholecystic inflammatory changes. PANCREAS: Unremarkable. SPLEEN: Unremarkable. ADRENAL GLANDS: Unremarkable. KIDNEYS AND URETERS: The kidneys are normal in size, shape, and attenuation. No hydronephrosis, hydroureter, or calculi seen. No perinephric stranding. BLADDER: Unremarkable. GASTROINTESTINAL TRACT: The small and large bowel are unremarkable. The appendix is unremarkable. ABDOMINAL WALL: No significant hernia is appreciated. LYMPH NODES: Normal. VASCULAR: Normal caliber aorta. Duplicated inferior vena cava noted. The left IVC drains into the left renal vein. PELVIC VISCERA: The uterus and adnexa are unremarkable. OSSEOUS STRUCTURES: Unremarkable. CT/CT abdomen pelvis w con IMPRESSION: No acute findings of the abdomen or pelvis. No inflammatory changes. Fleischner guidelines were followed.
[2021-07-17 20:24] VITALS: BP 107/70; PULSE 101; RESP 18; TEMP 37.3; O2SAT 100; BMI 30.7
--- NOTE | 2021-07-17 21:18 | ED.GENADULT ---
HPI - General Adult General Chief complaint: Abdominal Pain Stated complaint: vomiting/sharp abd pain/weakness Time Seen by Provider: 07/17/21 21:01 Source: patient Mode of arrival: ambulatory Limitations: no limitations History of Present Illness HPI narrative: Patient comes to emergency room complaining of diffuse abdominal pain, nausea, vomiting and diarrhea. Symptoms started approximately 11 hours ago. Patient denies chest pain or shortness of breath, no URI symptoms, no UTI symptoms. Related Data Home Medications Medication Instructions Recorded Confirmed cetirizine 10 mg tablet (Zyrtec) 10 mg PO DAILY PRN 08/01/20 06/24/21 budesonide-formoterol HFA 160 1 inh INHALATION BID 06/02/21 06/24/21 mcg-4.5 mcg/actuation aerosol inhaler (Symbicort) ferrous fumarate 324 mg (106 mg 324 mg PO DAILY 06/02/21 06/24/21 iron) tablet (Ferrocite) metoclopramide HCl 10 mg tablet 10 mg PO DAILY PRN 06/02/21 06/24/21 naratriptan 2.5 mg tablet 2.5 mg PO DAILY PRN 06/02/21 06/24/21 Previous Rx's Medication Instructions Recorded levothyroxine 75 mcg tablet 75 mcg PO DAILY 30 Days #30 tab 04/07/21 cholecalciferol (vitamin D3) 50 50 mcg PO DAILY 90 Days #90 cap 06/17/21 mcg (2,000 unit) capsule ezetimibe 10 mg tablet 10 mg PO BEDTIME 30 Days #30 tab 06/17/21 rosuvastatin 40 mg tablet 40 mg PO DAILY 90 Days #90 tab 06/17/21 fluoxetine 20 mg capsule (Prozac) 40 mg PO DAILY #30 cap 06/25/21 aripiprazole 5 mg tablet (Abilify) 5 mg PO BEDTIME 30 Days #30 tab 06/29/21 buspirone 10 mg tablet 10 mg PO TID 30 Days #90 tab 06/29/21 clonidine HCl 0.2 mg tablet 0.2 mg PO BEDTIME 30 Days #30 tab 06/29/21 Ventolin HFA 90 mcg/actuation 2 puff INHALATION Q6H PRN #18 g NS 07/13/21 aerosol inhaler (albuterol sulfate) Allergies Allergy/AdvReac Type Severity Reaction Status Date / Time pantoprazole Allergy Unknown chest pain Verified 06/24/21 11:35 diphenhydramine Allergy Hives Verified 06/24/21 11:35 [From Benadryl] esomeprazole [From NEXIUM] AdvReac Mild DIARRHEA Verified 06/24/21 11:35 birch trees Allergy Unknown Sneezing Uncoded 06/24/21 11:35 oak trees Allergy Unknown nasal Uncoded 06/24/21 11:35 congestion SEASONAL ALLERGIES Allergy Unknown UNKNOWN Uncoded 06/24/21 11:35 Review of Systems Review of Systems: Constitutional : No Weight loss, No Fever, No Chills, No Night Sweats, No Fatigue, No Malaise ENT/Mouth : No Hearing loss, No Ear Pain, No Nasal Congestion, No Sinus Pain, No Hoarseness, No sore throat, No Rhinorrhea, No Swallowing Difficulty Eyes: No Eye Pain, No Swelling, No Redness, No Foreign Body, No Discharge, No Vision Changes Cardiovascular : No Chest Pain, No SOB, No Dyspnea on Exertion, No Orthopnea, No Edema, No Palpitations Respiratory : No Cough, No Sputum, No Wheezing, No Smoke Exposure, No Dyspnea Gastrointestinal : Complaining of nausea vomiting and diarrhea No Constipation, complaining of diffuse abdominal pain, No Hematochezia, No Melena Genitourinary : no irregular bleeding, No Dysuria, No Urinary Frequency, No Hematuria, No Urinary Incontinence, No Urgency, No Flank Pain, No Urinary Flow Changes, No Hesitancy Musculoskeletal : No joint pain, No Myalgias, No Joint Swelling Skin : No Skin Lesions, No rash Neuro : No Weakness, No Numbness, No Paresthesias, No Loss of Consciousness, No Dizziness, No Headache Psych : No Anxiety/Panic, No Depression, No SI/HI/AH/VH, No Social Issues, Heme/Lymph: No Bruising, No Bleeding,No Lymphadenopathy Endocrine : No Polyuria, No Polydipsia, No Temperature Intolerance PMFSH Past Medical History Medical History Allergy to cats Anemia Asthma Familial hypercholesterolemia Hypothyroidism Major depressive disorder, recurrent episode with anxious distress Migraine Multiple environmental allergies PCOS (polycystic ovarian syndrome) Psoriasis Vitamin D deficiency Surgical History History of removal of ovarian cyst Family History Family History Father Hyperlipidemia Mother Hyperlipidemia Hypertension Diabetes CVD (cardiovascular disease) Social History Social History Household Members: Family Household Members Other:: None Alcohol intake: never Patient Tobacco Use Status: Never used Tobacco e-Cigarette/Vaping Use: Never Used Advance Directives: No Patient : No Physical Exam ED Vital Signs: Vital Signs - 24 hr 07/17/21 20:24 07/17/21 21:25 Temperature 99.2 F 101.2 F H Pulse Rate 101 H 92 Respiratory Rate 18 20 Blood Pressure 107/70 109/63 Pulse Oximetry 100 100 BMI result Body Mass Index 30.7 Const Other: Appearance: Alert. Oriented X3. No acute distress. Eyes: Pupils equal, round and reactive to light. ENT: Pharynx normal. Dry oral mucosa Neck: Normal inspection. Neck supple. No lymph nodes noted. No crepitus CVS: Normal heart rate and rhythm. Pulses normal. Normal S1 and S2 Respiratory: No respiratory distress. Breath sounds normal. No Wheezing. No rales Abdomen: Soft , nondistended, tender in the periumbilical area Skin: Skin warm and dry. Normal skin color. Normal skin turgor. Extremities: No lower extremity edema. No Lacerations. No Rash Neuro: Oriented X 3. No motor deficit. No sensory deficit. Moving all extremities. No slurred speech. CN 2 through 12 grossly intact Psych: calm, cooperative, normal affect Course Course Course Narrative: On physical exam, patient feels warmer than 99.2 F. Rectal temperature has been requested. Patient has an elevated white blood cell count of 17.7, this time, there is no clear etiology. Patient has been unable to provide a urine sample. CT scan pending. Sign out given to Dr. Barcenas Discharge Plan Discharge Clinical Impression: Abdominal pain, Nausea vomiting and diarrhea Patient Disposition: Still a Patient Prescriptions: No Action levothyroxine 75 mcg tablet 75 mcg PO DAILY 30 Days Qty: 30 3RF albuterol sulfate [Ventolin HFA] 90 mcg/actuation HFA aerosol inhaler 2 puff inhalation Q6H PRN (Reason: shortness of breath or wheezing) Qty: 18 1RF ferrous fumarate [Ferrocite] 324 mg (106 mg iron) Tablet 324 mg PO DAILY 0RF naratriptan 2.5 mg Tablet 2.5 mg PO DAILY PRN (Reason: Migraine Headache) 0RF Rx Instructions: do not exceed 2 doses per 24 hrs metoclopramide HCl 10 mg Tablet 10 mg PO DAILY PRN (Reason: Nausea) 0RF budesonide-formoterol [Symbicort] 160-4.5 mcg/actuation Hfa Aerosol Inhaler 1 inh INHALATION BID 0RF fluoxetine [Prozac] 20 mg Capsule 40 mg PO DAILY Qty: 30 0RF clonidine HCl 0.2 mg tablet 0.2 mg PO BEDTIME 30 Days Qty: 30 0RF aripiprazole [Abilify] 5 mg tablet 5 mg PO BEDTIME 30 Days Qty: 30 0RF buspirone 10 mg tablet 10 mg PO TID 30 Days Qty: 90 0RF cetirizine [Zyrtec] 10 mg tablet 10 mg PO DAILY PRN (Reason: Allergy Symptoms) 0RF rosuvastatin 40 mg tablet 40 mg PO DAILY 90 Days Qty: 90 11RF ezetimibe 10 mg tablet 10 mg PO BEDTIME 30 Days Qty: 30 11RF cholecalciferol (vitamin D3) 50 mcg (2,000 unit) capsule 50 mcg PO DAILY 90 Days Qty: 90 11RF
[2021-07-17] MEDS: Acetaminophen Supp 650 MG SUPP.RECT PR (21:21)
[2021-07-17] MEDS: 0.9 % Sodium Chloride 2,000 ML 999 ML IVCONT (21:22)
[2021-07-17 21:25] VITALS: BP 109/63; PULSE 92; RESP 20; TEMP 38.4; O2SAT 100
[2021-07-17 22:35] LABS: UPreg QC Valid YES; Urine Pregnancy NEGATIVE (NEGATIVE)
[2021-07-17 22:57] LABS: IDNOW Serial# 08D9AD1C; Influenza A Negative (Negative); Influenza B2 Negative (Negative)
[2021-07-17] MEDS: 0.9 % Sodium Chloride 1,000 ML 999 ML IV (23:23)
[2021-07-17 23:30] LABS: Appearance Urine CLEAR; Color Urine YELLOW; Glucose Urine UA NEG (NEG); Leukocyte Esterase Urine TRACE (NEG); Nitrite Urine NEG (NEG); Specific Gravity - Urine 1.015 (1.005-1.025); Urine Blood NEG (NEG); Urine Ketones NEG (NEG); Urine Protein NEG (NEG-TRACE)
[2021-07-17 23:41] LABS: Bacteria Urine 2+ /LPF; Mucus Urine 1+ /LPF; Squamous Epithelial Cell Urine 2+ /LPF
[2021-07-17 23:44] VITALS: BP 97/42; PULSE 87; RESP 24; TEMP 38.3; O2SAT 100
[2021-07-17 23:53] LABS: Basophils Percent Auto 0.2 % (0-2); Eosinophils Absolute Auto 0.1 X10*3/uL (0.0-0.4); Eosinophils Percent Auto 1.2 % (0-4); Hematocrit 33.5 % (37.0-47.0); Hemoglobin 10.4 g/dl (12.0-16.0); Imm Gran Abs Auto 0.05 X10*3/uL (0.00-0.03); Imm Gran Pct Auto 0.4 % (0.0-0.4); Lymphocytes Absolute Auto 0.7 X10*3/uL (1.2-4.9); Lymphocytes Percent Auto 6.2 % (20-40); MANUAL DIFF FLAG NO; Mean Corpuscular Hemoglobin 25.4 pg (27.0-33.0); Mean Corpuscular Volume 81.7 fL (80.0-98.0); Mean Platelet Volume 8.8 fL (9.4-12.3); Monocytes Absolute Auto 0.4 X10*3/uL (0.1-1.2); Monocytes Percent Auto 3.7 % (2-11); Neutrophils Absolute Auto 9.9 x10*3/uL (2.0-8.3); Neutrophils Percent Auto 88.3 % (45-73); Platelet Count 331 X10*3/uL (160-400); Red Cell Distribution Width 18.5 % (11.0-16.0); White Blood Count 11.2 X10*3/uL (4.8-10.8)
[2021-07-18 00:02] LABS: Lactic Acid 1.2 mmol/L (0.5-2.0)
[2021-07-18] MEDS: Piperacillin Sodium/Tazobactam 3.375 GM in 0.9 % Sodium Chloride 50 ML IV (00:08)
[2021-07-18] MEDS: iohexoL 350 MG/ML 100 ML INFUS..BTL 85 ML IV (00:21)
[2021-07-18 00:26] LABS: Alanine Aminotransferase 27 U/L (0-31); Albumin Level 3.6 g/dL (3.5-5.0); Alkaline Phosphatase 99 U/L (39-117); Anion Gap 13 (12-20); Aspartate Amino Transferase 21 U/L (5-31); Bilirubin Direct 0.3 mg/dL (0.0-0.5); Blood Urea Nitrogen 10 mg/dL (9-16); Calcium 8.1 mg/dL (8.4-10.2); Carbon Dioxide 18 mmol/L (22-29); Chloride 108 mmol/L (96-108); Creatinine Clr Calc Pharmacy 123.9; Estimated Glomerular Filt Rate > 60; Glucose Random 105 mg/dL (60-115); Lipase 14 U/L (8-78); Potassium 4.2 mmol/L (3.3-5.1); Sodium 135 mmol/L (135-145); Total Protein 6.4 g/dL (6.5-8.0)
[2021-07-18 00:33] VITALS: BP 103/60; PULSE 91; RESP 24
[2021-07-18 00:48] VITALS: BP 102/57; PULSE 80
[2021-07-18 02:00] VITALS: BP 134/78; PULSE 93; RESP 18; TEMP 37.3; O2SAT 99
[2021-07-18] MEDS: Morphine Sulfate 2 MG/ML CARTRIDGE IVPUSH (02:03)
[2021-07-18] MEDS: 0.9 % Sodium Chloride 1,000 ML 999 ML IV (02:04)
[2021-07-18 03:11] VITALS: BP 107/50; PULSE 90; RESP 18; TEMP 37.1; O2SAT 100
[2021-07-18 03:15] VITALS: BP 107/50; PULSE 89; RESP 18; TEMP 37.1
== END 2021-07-18 03:28 | disposition home or self-care (01) ==
PROVIDERS: Emergency Medicine; Emergency Provider Emergency Medicine
DX: R10.9 Unspecified abdominal pain (principal); R11.2 Nausea with vomiting, unspecified; R19.7 Diarrhea, unspecified; R50.9 Fever, unspecified; E78.01 Familial hypercholesterolemia; Z79.02 Long term (current) use of antithrombotics/antiplatelets
CPT/HCPCS: 36415; 74177; 80048; 80076; 81001; 81025; 83605; 83690; 85025; 87040; 87502; 96361; 96374; 96375; 99285; J2270; J2543; Q9967

== ENCOUNTER 2021-07-21 08:02 | Outpatient (REF) | payer OTHER, SELFPAY ==
--- NOTE | ~2021-07-21 | MR_ITS ---
EXAMINATION: MR BRAIN WITHOUT AND WITH CONTRAST CLINICAL INFORMATION: 31-year-old with encephalopathy. COMPARISON: None TECHNIQUE: Multiplanar, multisequence MRI of the brain was obtained before and after the intravenous administration of 9 mL Gadavist. FINDINGS: Brain Volume: Within normal range. Structural: No malformations. Brain and Meninges: DWI sequence demonstrates no restricted diffusion. Specifically, there is no evidence for acute or subacute cerebral ischemia. The brain is normal in morphology and signal intensity. Russo-white matter differentiation is maintained. Gradient refocused imaging demonstrates no evidence for hemorrhage, hemosiderin staining or abnormal mineral deposition. No extra-axial fluid collections, intracranial mass lesion, space-occupying process, or mass effect is identified. Ventricles and Subarachnoid Spaces: The ventricular system and subarachnoid spaces are within normal limits, without hydrocephalus. Orbital Structures: The visualized orbital structures are grossly unremarkable within the limitations of the study. The anterior globes are distorted by susceptibility artifact, which may be due to the presence of eye liner. Vascular: Signal voids are noted in the visualized major intracranial vessels. Sinuses and Osseous Structures: Unremarkable. MR/MR head/brain wo/w con IMPRESSION: Normal MRI of the brain without and with contrast.
== END 2021-07-21 08:03 | disposition home or self-care (01) ==
LOC: HO.MRI 08:02
PROVIDERS: Visit Provider Psychiatry & Neurology Neurology
DX: G93.40 Encephalopathy, unspecified (principal)
CPT/HCPCS: 70553; A9585

== ENCOUNTER 2021-11-18 16:12 | Emergency (ER) | payer OTHER, SELFPAY ==
[2021-11-18 16:25] VITALS: BP 119/70; PULSE 116; O2SAT 98
[2021-11-18 17:11] VITALS: BP 107/76; PULSE 100; RESP 18; TEMP 37.1; O2SAT 97; BMI 29.1
--- NOTE | 2021-11-18 17:44 | MHC.CARE ---
Pt's psychiatric medication provider (Andra Villatoro [phone]) contacted this magazine writer alerting us that pt would be coming to the ED. She states pt has had increased anxiety, depression and panic attacks. She states that pt contacted her explaining that she wanted to go to the hospital for her anxiety.
== END 2021-11-18 20:45 | disposition left against medical advice (07) ==
PROVIDERS: Emergency Provider Emergency Medicine
DX: F43.0 Acute stress reaction (principal); F41.1 Generalized anxiety disorder
CPT/HCPCS: 99281

== ENCOUNTER 2022-01-18 16:33 | Outpatient (REF) | payer OTHER, SELFPAY ==
[2022-01-18 17:39] LABS: Influenza A PCR NEGATIVE (Negative); Influenza B PCR NEGATIVE (Negative); Resp Syncy Virus RNA Qual PCR NEGATIVE (Negative); SARS COV2 PCR INHOUSE NEGATIVE (Negative)
== END 2022-01-18 16:34 | disposition home or self-care (01) ==
LOC: HO.LNP 16:33
PROVIDERS: Visit Provider Internal Medicine
DX: R43.9 Unspecified disturbances of smell and taste (principal); Z20.822 Contact with and (suspected) exposure to COVID-19
CPT/HCPCS: 0241U

== ENCOUNTER 2022-03-17 10:14 | Outpatient (REF) | payer OTHER, SELFPAY ==
--- NOTE | ~2022-03-17 | XR_ITS ---
EXAMINATION: XR KNEE, RIGHT CLINICAL INFORMATION: Strain COMPARISON: None TECHNIQUE: Four views of the right knee. FINDINGS: There is no evidence of acute fracture or dislocation of the right knee. No right knee effusion. Right knee joint spaces are maintained. There is mild spurring undersurface of the patella. XR/XR knee RT 4V IMPRESSION: No significant right knee abnormality appreciated. Mild patellofemoral joint degenerative change.
== END 2022-03-17 10:15 | disposition home or self-care (01) ==
LOC: HO.HMGCX 10:14
PROVIDERS: PCP Internal Medicine; Visit Provider Physician Assistant
DX: S86.911A Strain of unspecified muscle(s) and tendon(s) at lower leg level, right leg, initial encounter (principal); X58.XXXA Exposure to other specified factors, initial encounter; Y93.9 Activity, unspecified; Y92.9 Unspecified place or not applicable; Y99.9 Unspecified external cause status
CPT/HCPCS: 73564

== ENCOUNTER 2022-05-04 18:28 | Outpatient (REF) | payer OTHER, SELFPAY ==
[2022-05-04 19:20] LABS: Influenza A PCR NEGATIVE (Negative); Influenza B PCR NEGATIVE (Negative); Resp Syncy Virus RNA Qual PCR NEGATIVE (Negative); SARS COV2 PCR INHOUSE NEGATIVE (Negative)
== END 2022-05-04 18:29 | disposition home or self-care (01) ==
LOC: HO.LNP 18:28
PROVIDERS: Visit Provider Internal Medicine
DX: R43.9 Unspecified disturbances of smell and taste (principal); Z20.822 Contact with and (suspected) exposure to COVID-19
CPT/HCPCS: 0241U

== ENCOUNTER 2022-05-18 09:11 | Outpatient (REF) | payer OTHER, SELFPAY ==
[2022-05-18 10:52] LABS: Alanine Aminotransferase 14 U/L (0-31); Albumin Level 4.1 g/dL (3.5-5.0); Alkaline Phosphatase 105 U/L (39-117); Anion Gap 11 (12-20); Aspartate Amino Transferase 17 U/L (5-31); Bilirubin Total 0.3 mg/dL (0.0-1.0); Blood Urea Nitrogen 9 mg/dL (9-16); Calcium 9.3 mg/dL (8.4-10.2); Carbon Dioxide 25 mmol/L (22-29); Chloride 105 mmol/L (96-108); Estimated Glomerular Filt Rate > 60; Glucose Random 88 mg/dL (60-115); Potassium 4.1 mmol/L (3.3-5.1); Sodium 137 mmol/L (135-145); Total Protein 7.3 g/dL (6.5-8.0)
[2022-05-18 11:10] LABS: Free T4 (Free Thyroxine) 0.97 ng/dL (0.71-1.85); Thyroid Stimulating Hormone 3.27 uIU/mL (0.32-4.0)
== END 2022-05-18 09:12 | disposition home or self-care (01) ==
LOC: HO.LAB 09:11
PROVIDERS: PCP Internal Medicine; Visit Provider Internal Medicine
DX: E03.9 Hypothyroidism, unspecified (principal)
CPT/HCPCS: 36415; 80053; 84439; 84443

== ENCOUNTER → 2022-05-24 11:01 | Outpatient (BNVA) | payer OTHER, SELFPAY | PROVIDERS: PCP Internal Medicine; Visit Provider Internal Medicine | DX: Z13.89 Encounter for screening for other disorder (principal) ==

== ENCOUNTER 2022-05-28 10:49 | Outpatient (REF) | payer OTHER, SELFPAY | END 2022-05-28 10:50 | disposition home or self-care (01) | LOC: HO.LAB 10:49 | PROVIDERS: PCP Internal Medicine; Visit Provider Internal Medicine | DX: Z13.89 Encounter for screening for other disorder (principal) ==

== ENCOUNTER 2022-05-31 09:10 | Outpatient (REF) | payer OTHER, SELFPAY ==
[2022-05-31 10:33] LABS: Glucose Fasting 90 mg/dL (60-99)
[2022-05-31 10:40] LABS: Cholesterol 356 mg/dL; HDL Cholesterol 63 mg/dL; LDL Cholesterol Calculated 276 mg/dl; Triglycerides 86 mg/dL
[2022-05-31 10:54] LABS: Cortisol Random 12.6 ug/dL
[2022-05-31 11:01] LABS: Thyroid Stimulating Hormone 2.91 uIU/mL (0.32-4.0)
[2022-05-31 11:29] LABS: Glucose 1 Hour 110 mg/dL
[2022-05-31 12:30] LABS: Glucose 2 Hour 102 mg/dL
[2022-06-02 01:34] LABS: DHEA Sulfate 136 mcg/dL (19-237); Lutenizing Hormone 4.8 mIU/mL; Sex Hormone Binding Globulin 54 nmol/L (17-124)
[2022-06-02 01:57] LABS: LDL Cholesterol Direct 278 mg/dL (<100)
[2022-06-02 16:04] LABS: Adrenocorticotropic Hormone 46 pg/mL (6-50)
[2022-06-05 02:43] LABS: Estradiol Ultra Sensitive 30 pg/mL
[2022-06-08 11:29] LABS: Testosterone, Free 2.5 pg/mL (0.1-6.4); Testosterone, Total 25 ng/dL (2-45)
[2022-06-09 15:39] LABS: Androstenedione 127 ng/dL
== END 2022-05-31 09:11 | disposition home or self-care (01) ==
LOC: HO.LAB 09:10
PROVIDERS: PCP Internal Medicine; Visit Provider Internal Medicine
DX: E03.9 Hypothyroidism, unspecified (principal); E28.2 Polycystic ovarian syndrome; E66.9 Obesity, unspecified; E78.01 Familial hypercholesterolemia; E55.9 Vitamin D deficiency, unspecified
CPT/HCPCS: 36415; 80061; 82024; 82157; 82306; 82533; 82627; 82670; 83001; 83002; 83721; 84270; 84402; 84403; 84439; 84443

== ENCOUNTER 2022-07-19 09:33 | Outpatient (REF) | payer MEDICAID, SELFPAY ==
[2022-07-19 11:39] LABS: Anion Gap 13 (12-20); Blood Urea Nitrogen 9 mg/dL (9-16); Calcium 9.3 mg/dL (8.4-10.2); Carbon Dioxide 25 mmol/L (22-29); Chloride 104 mmol/L (96-108); Cholesterol 241 mg/dL; Estimated Glomerular Filt Rate > 60; Glucose Random 84 mg/dL (60-115); HDL Cholesterol 77 mg/dL; LDL Cholesterol Calculated 144 mg/dl; Potassium 4.6 mmol/L (3.3-5.1); Sodium 137 mmol/L (135-145); Triglycerides 100 mg/dL
[2022-07-20 21:59] LABS: LDL Cholesterol Direct 147 mg/dL (<100)
== END 2022-07-19 09:34 | disposition home or self-care (01) ==
LOC: HO.LAB 09:33
PROVIDERS: Internal Medicine Endocrinology, Diabetes & Metabolism; PCP Internal Medicine; Visit Provider Internal Medicine
DX: E28.2 Polycystic ovarian syndrome (principal); E78.01 Familial hypercholesterolemia
CPT/HCPCS: 36415; 80048; 80061; 83721

== ENCOUNTER → 2022-07-21 12:19 | Outpatient (BNVA) | payer MEDICAID, SELFPAY | PROVIDERS: PCP Internal Medicine; Visit Provider Internal Medicine | DX: E78.01 Familial hypercholesterolemia (principal); E28.2 Polycystic ovarian syndrome; E03.9 Hypothyroidism, unspecified; E55.9 Vitamin D deficiency, unspecified; E66.9 Obesity, unspecified; Z68.36 Body mass index [BMI] 36.0-36.9, adult | CPT/HCPCS: 99212 ==

== ENCOUNTER 2022-07-21 12:59 | Emergency (ER) | payer MEDICAID, SELFPAY ==
[2022-07-21 13:04] VITALS: BP 135/75; PULSE 96; RESP 16; TEMP 36.6; O2SAT 98; BMI 36.6
== END 2022-07-21 15:23 | disposition left against medical advice (07) ==
PROVIDERS: Emergency Provider Emergency Medicine; PCP Internal Medicine
DX: R51.9 Headache, unspecified (principal)
CPT/HCPCS: 99281

== ENCOUNTER 2022-07-30 00:48 | Emergency (ER) | payer OTHER, MEDICAID, SELFPAY ==
--- NOTE | 2022-07-30 | ECG_ITS ---
Test Reason : chest pain Blood Pressure : / mmHG Vent. Rate : 088 BPM Atrial Rate : 088 BPM P-R Int : 138 ms QRS Dur : 084 ms QT Int : 368 ms P-R-T Axes : 015 025 001 degrees QTc Int : 445 ms Normal sinus rhythm Normal ECG When compared with ECG of 09-SEP-2014 23:21, T wave inversion no longer evident in Anterior leads Referred By: Generic ED Physician Electronically Signed By:RENETTA LOPEZ
--- NOTE | ~2022-07-30 | XR_ITS ---
EXAMINATION: XR CHEST CLINICAL INFORMATION: Chest pain COMPARISON: 04/05/2019 TECHNIQUE: Frontal view of the chest was obtained. FINDINGS: The lungs are well expanded. There is no focal consolidation, edema, or effusion. No pneumothorax. The cardiomediastinal silhouette is within normal limits. No acute osseous abnormality. XR/XR chest 1V IMPRESSION: No acute pulmonary disease.
[2022-07-30 00:51] VITALS: BP 135/85; PULSE 95; RESP 18; TEMP 36.4; O2SAT 98; BMI 36.6
[2022-07-30 01:26] LABS: Basophils Absolute Auto 0.1 X10*3/uL (0.0-0.2); Basophils Percent Auto 0.5 % (0-2); Eosinophils Absolute Auto 0.3 X10*3/uL (0.0-0.4); Eosinophils Percent Auto 2.6 % (0-4); Hematocrit 34.7 % (37.0-47.0); Hemoglobin 10.8 g/dl (12.0-16.0); Imm Gran Abs Auto 0.07 X10*3/uL (0.00-0.03); Imm Gran Pct Auto 0.5 % (0.0-0.4); Lymphocytes Absolute Auto 2.6 X10*3/uL (1.2-4.9); Lymphocytes Percent Auto 20.1 % (20-40); Mean Corpuscular HGB Conc 31.1 g/dl (31.0-35.0); Mean Corpuscular Hemoglobin 24.4 pg (27.0-33.0); Mean Corpuscular Volume 78.3 fL (80.0-98.0); Mean Platelet Volume 8.6 fL (9.4-12.3); Monocytes Absolute Auto 0.6 X10*3/uL (0.1-1.2); Monocytes Percent Auto 4.8 % (2-11); Neutrophils Absolute Auto 9.4 x10*3/uL (2.0-8.3); Neutrophils Percent Auto 71.5 % (45-73); Platelet Count 416 X10*3/uL (160-400); Red Blood Count 4.43 X10*6/uL (4.20-5.50); Red Cell Distribution Width 16.2 % (11.0-16.0); White Blood Count 13.2 X10*3/uL (4.8-10.8)
[2022-07-30 01:27] LABS: MANUAL DIFF FLAG NO
--- OUTSIDE RECORDS SUMMARY | 2022-07-30 01:30 | XMS_ITS | Continuity of Care Document ---
Author Name Unknown Organization [facility] Address [address] [facility] [place] [address]- Care Team Providers Care Procurement Technician Name Role Phone Rafy BURGOS, Margaret Reyes Primary Care Physician Encounter 11/21/19 - 12/26/19 [facility]ING [address], [facility] [address] [place] [address]- [phone] Attending Physician: Edvin Jaramillo MD Admitting Physician: Edvin Jaramillo MD Referring Physician: Edvin Jaramillo MD Allergies, Adverse Reactions, Alerts Substance Reaction Severity Status NKA Active
--- OUTSIDE RECORDS SUMMARY | 2022-07-30 01:30 | XMS_ITS | Continuity of Care Document ---
Author Name Unknown Organization [facility] Address [address] [place] [id number]- Care Team Providers Care Scheme Technician Name Role Phone Rafy BURGOS, Margaret Reyes Primary Care Physician Encounter [facility] Date(s): 06/21/22 - 07/22/[address] [address]- Attending Physician: Ai BURGOS, Bhavik Blount Referring Physician: Not on Staff, Referring MD Allergies, Adverse Reactions, Alerts No Known Allergies Patient Care team information Care Team Personnel Name: Margaret Hillman MD Position: Reference Physician Member Role: PCP Address: Address: [address] [place] [address]- Care Team Related Persons Name: RAFA QUEZADA Address: home [address] [place] [address]
[2022-07-30 01:33] VITALS: BP 111/58; PULSE 82; RESP 17; TEMP 36.8; O2SAT 98
--- NOTE | 2022-07-30 01:36 | ED_ITS ---
HPI - Chest Pain General Chief Complaint: Chest Pain Stated Complaint: Severe chestpain started 4 days ago/cold sweats Time Seen by Provider: 07/30/22 01:36 Source: patient Mode of arrival: ambulatory Limitations: no limitations History of Present Illness HPI narrative: Patient history of anxiety depression hypothyroidism comes in for 4 days of mid chest and left upper chest pain reproducible chest pain feels like a pulling sharp pain no significant shortness of breath saturating 98% room air. No cough no fever or chills no significant abdominal pain Related Data Home Medications Medication Instructions Recorded Confirmed metoclopramide HCl 10 mg tablet 10 mg PO DAILY PRN Nausea 06/02/21 07/21/22 bupropion HCl 150 mg tablet,12 hr 300 mg PO BID 05/24/22 07/21/22 sustained-release lorazepam 1 mg tablet 1 mg PO BID PRN 05/24/22 07/21/22 sumatriptan succinate 50 mg tablet mg PO 05/24/22 07/21/22 duloxetine 30 mg capsule,delayed 30 mg PO DAILY 07/21/22 07/21/22 release Previous Rx's Medication Instructions Recorded Ventolin HFA 90 mcg/actuation 2 puff inhalation Q6H PRN 07/13/21 aerosol inhaler (albuterol sulfate) shortness of breath or wheezing #18 grams levothyroxine 88 mcg tablet 88 mcg PO DAILY 30 days #30 tabs 05/20/22 cholecalciferol (vitamin D3) 50 50 mcg PO DAILY 30 days #30 caps 05/31/22 mcg (2,000 unit) capsule nystatin-triamcinolone 100,000 1 appl topical BID PRN rash 10 06/08/22 unit/g-0.1 % topical cream days #30 grams evolocumab 140 mg/mL subcutaneous 140 mg subcut Q2W 30 days #3 mL 07/21/22 pen injector (Edyta Alvarado) semaglutide (weight loss) 0.25 0.25 mg (0.5 mL) subcut QWEEK 30 07/21/22 mg/0.5 mL subcutaneous pen days #2.5 mL injector (Nico) ezetimibe 10 mg tablet (Zetia) 10 mg PO DAILY 30 days #30 tabs 07/29/22 rosuvastatin 40 mg tablet 40 mg PO DAILY 30 days #30 tabs 07/29/22 ibuprofen 600 mg tablet 600 mg PO Q6H PRN pain #30 tabs 07/30/22 Allergies Allergy/AdvReac Type Severity Reaction Status Date / Time pantoprazole Allergy Unknown chest pain Verified 07/21/22 12:34 diphenhydramine Allergy Hives Verified 07/21/22 12:34 [From Benadryl] esomeprazole [From NEXIUM] AdvReac Mild DIARRHEA Verified 07/21/22 12:34 birch trees Allergy Unknown Sneezing Uncoded 07/21/22 12:34 oak trees Allergy Unknown nasal Uncoded 07/21/22 12:34 congestion SEASONAL ALLERGIES Allergy Unknown UNKNOWN Uncoded 07/21/22 12:34 Review of Systems Review of Systems: Yes all other systems are reviewed and are negative PMFSH Past Medical History Medical History Allergy to cats Anemia Asthma Familial hypercholesterolemia Hypothyroidism Major depressive disorder, recurrent episode with anxious distress Migraine Multiple environmental allergies Obesity PCOS (polycystic ovarian syndrome) Psoriasis Vitamin D deficiency Surgical History History of removal of ovarian cyst Family History Family History Father Hyperlipidemia Mother Hyperlipidemia Hypertension Diabetes CVD (cardiovascular disease) Social History Social History Household Members: Family Household Members Other:: None Alcohol intake: never Patient Tobacco Use Status: Never used Tobacco e-Cigarette/Vaping Use: Never Used Advance Directives: No Advance Directives Information Provided: Yes Physical Exam Vital Signs: Vital Signs: Last Vital Signs Temp 98.3 F 07/30/22 01:33 Pulse 82 07/30/22 01:33 Resp 17 07/30/22 01:33 BP 111/58 L 07/30/22 01:33 Pulse Ox 98 07/30/22 01:33 O2 Del Method Room Air 07/30/22 01:33 BMI result Body Mass Index 36.6 Appearance: Alert. Oriented X3. No acute distress. Eyes: No pallor or icterus ENT: Pharynx normal. Oral Mucosa moist Neck: Normal inspection. Neck supple. CVS: Normal heart rate and rhythm. Pulses normal. Respiratory: No respiratory distress. Equal air entry bilateral, no wheezing/rales/rhonchi left 2nd intercostal space tenderness++ reproducible pain Abdomen: Soft and nontender. Bowel sounds are present, no mass palpable, no CVA tenderness Skin: Skin warm and dry. Normal skin color. Normal skin turgor. Extremities: No lower extremity edema. No calf tenderness Neuro: Oriented X 3. No motor deficit. Medications Administered Discontinued Medications Generic Name Dose Route Start Last Admin Trade Name Freq PRN Reason Stop Dose Admin Al Hydroxide/Mg Hydroxide 30 ml 07/30/22 01:42 07/30/22 01:49 Magnesium Hydrox/Alum Hydrox 30 Ml Oral.Susp PO 07/30/22 01:43 30 ml ONCE ONE Administration Ketorolac Tromethamine 60 mg 07/30/22 01:40 07/30/22 01:49 Ketorolac Tromethamine 60 Mg/2 Ml Vial IM 07/30/22 01:41 60 mg ONCE ONE Administration Omeprazole 40 mg 07/30/22 01:42 07/30/22 01:49 Omeprazole 40 Mg Capsule.Dr PO 07/30/22 01:43 40 mg ONCE ONE Administration Medical Decision Making Medical Decision Making [facility] Narrative: Patient heart score of 0 atypical chest pain atypical labs are stable clinically costal chondritis discharge patient home on ibuprofen Lab Data [facility] Lab Attestation statement: I reviewed the patient's lab results. 07/30/22 01:21 07/30/22 01:21 Labs: Lab Results 07/30/22 07/30/22 07/30/22 Range/Units 01:21 01:21 01:21 WBC 13.2 H (4.8-10.8) X10*3/uL RBC 4.43 (4.20-5.50) X10*6/uL Hgb 10.8 L (12.0-16.0) g/dl Hct 34.7 L (37.0-47.0) % MCV 78.3 L (80.0-98.0) fL MCH 24.4 L (27.0-33.0) pg MCHC 31.1 (31.0-35.0) g/dl RDW 16.2 H (11.0-16.0) % Plt Count 416 H D (160-400) X10*3/uL MPV 8.6 L (9.4-12.3) fL Immature Gran % (Auto) 0.5 H (0.0-0.4) % Neut % (Auto) 71.5 (45-73) % Lymph % (Auto) 20.1 (20-40) % Miner % (Auto) 4.8 (2-11) % Eos % (Auto) 2.6 (0-4) % Baso % (Auto) 0.5 (0-2) % Lymph # (Auto) 2.6 (1.2-4.9) X10*3/uL Miner # (Auto) 0.6 (0.1-1.2) X10*3/uL Eos # (Auto) 0.3 (0.0-0.4) X10*3/uL Baso # (Auto) 0.1 (0.0-0.2) X10*3/uL Abs Immat Gran (auto) 0.07 H (0.00-0.03) X10*3/uL Absolute Neuts (auto) 9.4 H (2.0-8.3) x10*3/uL Absolute Nucleated RBC 0.000 (0.0-0.012) X10*3/uL Nucleated RBC % (auto) 0.0 (0.0-0.2) /100WBC Sodium 138 (135-145) mmol/L Potassium 4.0 (3.3-5.1) mmol/L Chloride 107 (96-108) mmol/L Carbon Dioxide 19 L (22-29) mmol/L Anion Gap 16 (12-20) BUN 6 L (9-16) mg/dL Creatinine 0.83 (0.5-1.4) mg/dL Estim Creat Clear Calc 114.8 Estimated GFR > 60 Random Glucose 95 (60-115) mg/dL Calcium 9.2 (8.4-10.2) mg/dL Troponin I High Sens < 3.5 (<3.5-17.0) ng/L Independent Interpretation I performed an independent interpretation of an: EKG Interpretation: Normal sinus rhythm heart rate 88 beats per minute normal interval normal axis no acute ST-T no acute ischemia Discharge Plan Discharge Clinical Impression: Costal chondritis Patient Disposition: Home, Self-Care Instructions: Costochondritis (ED) Additional Instructions: Take ibuprofen for pain your pain is from the cartilage inflammation not from the heart disease Prescriptions: New ibuprofen 600 mg tablet 600 mg PO Q6H PRN (Reason: pain) Qty: 30 0RF No Action albuterol sulfate [Ventolin HFA] 90 mcg/actuation HFA aerosol inhaler 2 puff inhalation Q6H PRN (Reason: shortness of breath or wheezing) Qty: 18 1RF levothyroxine 88 mcg tablet 88 mcg PO DAILY 30 Days Qty: 30 3RF cholecalciferol (vitamin D3) 50 mcg (2,000 unit) capsule 50 mcg PO DAILY 30 Days Qty: 30 11RF nystatin-triamcinolone 100,000-0.1 unit/g-% cream 1 appl topical BID PRN (Reason: rash) 10 Days Qty: 30 0RF rosuvastatin 40 mg tablet 40 mg PO DAILY 30 Days Qty: 30 11RF ezetimibe [Zetia] 10 mg tablet 10 mg PO DAILY 30 Days Qty: 30 11RF metoclopramide HCl 10 mg Tablet 10 mg PO DAILY PRN (Reason: Nausea) duloxetine 30 mg capsule,delayed release(DR/EC) 30 mg PO DAILY Repatha SureClick 140 mg/mL pen injector 140 mg subcut Q2W 30 Days Qty: 3 11RF Wegovy 0.25 mg/0.5 mL pen injector 0.25 mg subcut QWEEK 30 Days Qty: 2.5 1RF Rx Instructions: administer weeks 1 through 4 of therapy lorazepam 1 mg tablet 1 mg PO BID PRN sumatriptan succinate 50 mg tablet PO bupropion HCl 150 mg tablet sustained-release 12 hr 300 mg PO BID
[2022-07-30 01:43] LABS: Anion Gap 16 (12-20); Blood Urea Nitrogen 6 mg/dL (9-16); Calcium 9.2 mg/dL (8.4-10.2); Carbon Dioxide 19 mmol/L (22-29); Chloride 107 mmol/L (96-108); Creatinine Clr Calc Pharmacy 114.8; Estimated Glomerular Filt Rate > 60; Glucose Random 95 mg/dL (60-115); Sodium 138 mmol/L (135-145)
[2022-07-30] MEDS: Magnesium Hydrox/Alum Hydrox 30 ML ORAL.SUSP PO (01:49)
[2022-07-30] MEDS: Omeprazole 40 MG CAPSULE.DR PO (01:49)
[2022-07-30] MEDS: Ketorolac Tromethamine 60 MG/2 ML VIAL IM (01:49)
[2022-07-30 01:53] LABS: Troponin-I High Sensitivity < 3.5 ng/L (<3.5-17.0)
== END 2022-07-30 03:12 | disposition home or self-care (01) ==
PROVIDERS: Emergency Provider Internal Medicine; PCP Internal Medicine
DX: M94.0 Chondrocostal junction syndrome [Tietze] (principal); E78.00 Pure hypercholesterolemia, unspecified; Z79.899 Other long term (current) drug therapy; Z79.02 Long term (current) use of antithrombotics/antiplatelets
CPT/HCPCS: 36415; 71045; 80048; 84484; 85025; 93005; 96372; 99284; J1885

== ENCOUNTER → 2022-09-01 08:18 | Outpatient (BNVA) | payer MEDICAID, SELFPAY | PROVIDERS: PCP Internal Medicine; Visit Provider Internal Medicine | DX: R07.9 Chest pain, unspecified (principal); E78.01 Familial hypercholesterolemia | CPT/HCPCS: 99212 ==

== ENCOUNTER 2022-09-24 11:48 | Emergency (ER) | payer OTHER, SELFPAY ==
--- NOTE | ~2022-09-24 | XR_ITS ---
EXAMINATION: XR CHEST CLINICAL INFORMATION: Cough, SOB COMPARISON: None available. TECHNIQUE: 2 views of the chest were obtained. FINDINGS: No significant abnormality is noted involving the heart, lungs, mediastinum, bony thorax or soft tissues. XR/XR chest 2V IMPRESSION: Unremarkable chest examination.
[2022-09-24 12:06] VITALS: BP 126/80; PULSE 118; RESP 20; TEMP 36.8; O2SAT 96; BMI 37.1
--- NOTE | 2022-09-24 12:07 | ED.GENADULT ---
HPI - General Adult General Chief complaint: Upper Respiratory Symptoms Stated complaint: Pneumonia Time Seen by Provider: 09/24/22 12:31 Source: patient Mode of arrival: ambulatory Limitations: no limitations Related Data Home Medications Medication Instructions Recorded Confirmed metoclopramide HCl 10 mg tablet 10 mg PO DAILY PRN Nausea 06/02/21 09/01/22 lorazepam 1 mg tablet 1 mg PO BID PRN 05/24/22 09/01/22 bupropion HCl 450 mg 24 hr tablet, 450 mg PO DAILY 09/01/22 09/01/22 extended release duloxetine 60 mg capsule,delayed 60 mg PO QAM 09/01/22 09/01/22 release sumatriptan succinate 50 mg tablet 50 mg PO PRN 09/01/22 09/01/22 Previous Rx's Medication Instructions Recorded Ventolin HFA 90 mcg/actuation 2 puff inhalation Q6H PRN 07/13/21 aerosol inhaler (albuterol sulfate) shortness of breath or wheezing #18 grams cholecalciferol (vitamin D3) 50 50 mcg PO DAILY 30 days #30 caps 05/31/22 mcg (2,000 unit) capsule nystatin-triamcinolone 100,000 1 appl topical BID PRN rash 10 06/08/22 unit/g-0.1 % topical cream days #30 grams evolocumab 140 mg/mL subcutaneous 140 mg subcut Q2W 30 days #3 mL 07/21/22 pen injector (Edyta Alvarado) ezetimibe 10 mg tablet (Zetia) 10 mg PO DAILY 30 days #30 tabs 07/29/22 rosuvastatin 40 mg tablet 40 mg PO DAILY 30 days #30 tabs 07/29/22 levothyroxine 88 mcg tablet 88 mcg PO DAILY 90 days #90 tabs 08/27/22 Allergies Allergy/AdvReac Type Severity Reaction Status Date / Time pantoprazole Allergy Unknown chest pain Verified 09/24/22 12:11 diphenhydramine Allergy Hives Verified 09/24/22 12:11 [From Benadryl] esomeprazole [From NEXIUM] AdvReac Mild DIARRHEA Verified 09/24/22 12:11 birch trees Allergy Unknown Sneezing Uncoded 09/01/22 08:27 oak trees Allergy Unknown nasal Uncoded 09/01/22 08:27 congestion SEASONAL ALLERGIES Allergy Unknown UNKNOWN Uncoded 09/01/22 08:27 [facility] Past Medical History Medical History Allergy to cats Anemia Asthma Familial hypercholesterolemia Hypothyroidism Major depressive disorder, recurrent episode with anxious distress Migraine Multiple environmental allergies Obesity PCOS (polycystic ovarian syndrome) Psoriasis Vitamin D deficiency Surgical History History of removal of ovarian cyst Family History Family History Father Hyperlipidemia Mother Hyperlipidemia Hypertension Diabetes CVD (cardiovascular disease) Social History Social History Household Members: Family Household Members Other:: None Alcohol intake: never Patient Tobacco Use Status: Never used Tobacco e-Cigarette/Vaping Use: Never Used Advance Directives: No Advance Directives Information Provided: Yes Physical Exam ED Vital Signs: Vital Signs - 24 hr 09/24/22 12:06 09/24/22 13:45 Temperature 98.2 F 98.4 F Pulse Rate 118 H 99 Respiratory Rate 20 16 Blood Pressure 126/80 106/78 Pulse Oximetry 96 99 Oxygen Delivery Method Room Air Room Air BMI result Body Mass Index 37.1 Course Course Course Narrative: RME performed by Lucy Chowdhury PA-C. Patient is a 32 year old assigned female at presenting to the emergency department with diarrhea, fever, chills, cough, and congestion. Labs, imaging, and swabs ordered. Patient placed back in the waiting room pending room availability and results. Medical Decision Making Lab Data 09/24/22 12:16 09/24/22 12:16 Labs: Lab Results 09/24/22 09/24/22 09/24/22 Range/Units 12:16 12:16 12:16 WBC 10.2 (4.8-10.8) X10*3/uL RBC 4.82 (4.20-5.50) X10*6/uL Hgb 11.5 L (12.0-16.0) g/dl Hct 37.0 (37.0-47.0) % MCV 76.8 L (80.0-98.0) fL MCH 23.9 L (27.0-33.0) pg MCHC 31.1 (31.0-35.0) g/dl RDW 18.3 H (11.0-16.0) % Plt Count 510 H (160-400) X10*3/uL MPV 8.5 L (9.4-12.3) fL Immature Gran % (Auto) 0.5 H (0.0-0.4) % Neut % (Auto) 65.4 (45-73) % Lymph % (Auto) 23.3 (20-40) % Schoolcraft % (Auto) 5.6 (2-11) % Eos % (Auto) 4.5 H (0-4) % Baso % (Auto) 0.7 (0-2) % Lymph # (Auto) 2.4 (1.2-4.9) X10*3/uL Schoolcraft # (Auto) 0.6 (0.1-1.2) X10*3/uL Eos # (Auto) 0.5 H (0.0-0.4) X10*3/uL Baso # (Auto) 0.1 (0.0-0.2) X10*3/uL Abs Immat Gran (auto) 0.05 H (0.00-0.03) X10*3/uL Absolute Neuts (auto) 6.6 (2.0-8.3) x10*3/uL Absolute Nucleated RBC 0.000 (0.0-0.012) X10*3/uL Nucleated RBC % (auto) 0.0 (0.0-0.2) /100WBC ESR 56 H (0-20) MM/HR Sodium 139 (135-145) mmol/L Potassium 4.1 (3.3-5.1) mmol/L Chloride 110 H (96-108) mmol/L Carbon Dioxide 20 L (22-29) mmol/L Anion Gap 13 (12-20) BUN 13 (9-16) mg/dL Creatinine 0.75 (0.5-1.4) mg/dL Estim Creat Clear Calc 128.1 Estimated GFR > 60 Random Glucose 116 H (60-115) mg/dL Calcium 9.3 (8.4-10.2) mg/dL Magnesium 1.9 (1.6-2.6) mg/dL Total Bilirubin 0.4 (0.0-1.0) mg/dL AST 17 (5-31) U/L ALT 17 (0-31) U/L Alkaline Phosphatase 113 (39-117) U/L C-Reactive Protein 1.18 H (< or = 0.50) mg/dL Total Protein 7.9 (6.5-8.0) g/dL Albumin 4.2 (3.5-5.0) g/dL Beta HCG, Quant mIU/mL COVID-19 ([facility]) (Negative) COVID-19 Clin Com Influenza Type A (IQRA) (Negative) Influenza Type B (IQRA) (Negative) Influenza A & B Note S. pyogenes GrpA IQRA (Negative) 09/24/22 09/24/22 09/24/22 Range/Units 12:16 12:16 12:16 WBC (4.8-10.8) X10*3/uL RBC (4.20-5.50) X10*6/uL Hgb (12.0-16.0) g/dl Hct (37.0-47.0) % MCV (80.0-98.0) fL MCH (27.0-33.0) pg MCHC (31.0-35.0) g/dl RDW (11.0-16.0) % Plt Count (160-400) X10*3/uL MPV (9.4-12.3) fL Immature Gran % (Auto) (0.0-0.4) % Neut % (Auto) (45-73) % Lymph % (Auto) (20-40) % Schoolcraft % (Auto) (2-11) % Eos % (Auto) (0-4) % Baso % (Auto) (0-2) % Lymph # (Auto) (1.2-4.9) X10*3/uL Schoolcraft # (Auto) (0.1-1.2) X10*3/uL Eos # (Auto) (0.0-0.4) X10*3/uL Baso # (Auto) (0.0-0.2) X10*3/uL Abs Immat Gran (auto) (0.00-0.03) X10*3/uL Absolute Neuts (auto) (2.0-8.3) x10*3/uL Absolute Nucleated RBC (0.0-0.012) X10*3/uL Nucleated RBC % (auto) (0.0-0.2) /100WBC ESR (0-20) MM/HR Sodium (135-145) mmol/L Potassium (3.3-5.1) mmol/L Chloride (96-108) mmol/L Carbon Dioxide (22-29) mmol/L Anion Gap (12-20) BUN (9-16) mg/dL Creatinine (0.5-1.4) mg/dL Estim Creat Clear Calc Estimated GFR Random Glucose (60-115) mg/dL Calcium (8.4-10.2) mg/dL Magnesium (1.6-2.6) mg/dL Total Bilirubin (0.0-1.0) mg/dL AST (5-31) U/L ALT (0-31) U/L Alkaline Phosphatase (39-117) U/L C-Reactive Protein (< or = 0.50) mg/dL Total Protein (6.5-8.0) g/dL Albumin (3.5-5.0) g/dL Beta HCG, Quant mIU/mL COVID-19 ([facility]) Negative (Negative) COVID-19 Clin Com See Note Influenza Type A (IQRA) Negative (Negative) Influenza Type B (IQRA) Negative (Negative) Influenza A & B Note See Note S. pyogenes GrpA IQRA Negative (Negative) 09/24/22 Range/Units 12:16 WBC (4.8-10.8) X10*3/uL RBC (4.20-5.50) X10*6/uL Hgb (12.0-16.0) g/dl Hct (37.0-47.0) % MCV (80.0-98.0) fL MCH (27.0-33.0) pg MCHC (31.0-35.0) g/dl RDW (11.0-16.0) % Plt Count (160-400) X10*3/uL MPV (9.4-12.3) fL Immature Gran % (Auto) (0.0-0.4) % Neut % (Auto) (45-73) % Lymph % (Auto) (20-40) % Schoolcraft % (Auto) (2-11) % Eos % (Auto) (0-4) % Baso % (Auto) (0-2) % Lymph # (Auto) (1.2-4.9) X10*3/uL Schoolcraft # (Auto) (0.1-1.2) X10*3/uL Eos # (Auto) (0.0-0.4) X10*3/uL Baso # (Auto) (0.0-0.2) X10*3/uL Abs Immat Gran (auto) (0.00-0.03) X10*3/uL Absolute Neuts (auto) (2.0-8.3) x10*3/uL Absolute Nucleated RBC (0.0-0.012) X10*3/uL Nucleated RBC % (auto) (0.0-0.2) /100WBC ESR (0-20) MM/HR Sodium (135-145) mmol/L Potassium (3.3-5.1) mmol/L Chloride (96-108) mmol/L Carbon Dioxide (22-29) mmol/L Anion Gap (12-20) BUN (9-16) mg/dL Creatinine (0.5-1.4) mg/dL Estim Creat Clear Calc Estimated GFR Random Glucose (60-115) mg/dL Calcium (8.4-10.2) mg/dL Magnesium (1.6-2.6) mg/dL Total Bilirubin (0.0-1.0) mg/dL AST (5-31) U/L ALT (0-31) U/L Alkaline Phosphatase (39-117) U/L C-Reactive Protein (< or = 0.50) mg/dL Total Protein (6.5-8.0) g/dL Albumin (3.5-5.0) g/dL Beta HCG, Quant < 2 mIU/mL COVID-19 ([facility]) (Negative) COVID-19 Clin Com Influenza Type A (IQRA) (Negative) Influenza Type B (IQRA) (Negative) Influenza A & B Note S. pyogenes GrpA IQRA (Negative) Discharge Plan Discharge Clinical Impression: Upper respiratory tract infection Patient Disposition: Home, Self-Care Instructions: Upper Respiratory Infection (ED) Additional Instructions: You presented with fever and respiratory symptoms. We performed basic labs, covid, flu, strep test, and a chest xray on you, and everything came back normal. You have been diagnosed with an upper respiratory infection. You can manage your symptoms with over the counter medications such as tylenol. Rest up and drink plenty of fluids Prescriptions: No Action albuterol sulfate [Ventolin HFA] 90 mcg/actuation HFA aerosol inhaler 2 puff inhalation Q6H PRN (Reason: shortness of breath or wheezing) Qty: 18 1RF cholecalciferol (vitamin D3) 50 mcg (2,000 unit) capsule 50 mcg PO DAILY 30 Days Qty: 30 11RF nystatin-triamcinolone 100,000-0.1 unit/g-% cream 1 appl topical BID PRN (Reason: rash) 10 Days Qty: 30 0RF rosuvastatin 40 mg tablet 40 mg PO DAILY 30 Days Qty: 30 11RF ezetimibe [Zetia] 10 mg tablet 10 mg PO DAILY 30 Days Qty: 30 11RF levothyroxine 88 mcg tablet 88 mcg PO DAILY 90 Days Qty: 90 3RF metoclopramide HCl 10 mg Tablet 10 mg PO DAILY PRN (Reason: Nausea) Repatha SureClick 140 mg/mL pen injector 140 mg subcut Q2W 30 Days Qty: 3 11RF lorazepam 1 mg tablet 1 mg PO BID PRN sumatriptan succinate 50 mg tablet 50 mg PO PRN bupropion HCl 450 mg tablet extended release 24 hr 450 mg PO DAILY duloxetine 60 mg capsule,delayed release(DR/EC) 60 mg PO QAM Stand Alone Forms: Work/School Release Interventions: ED Discharge Assessment Last Done: 09/24/22 14:35 Discharge Date/Time: 09/24/22 14:35
[2022-09-24 12:19] LABS: MANUAL DIFF FLAG NO
[2022-09-24 12:21] LABS: Basophils Absolute Auto 0.1 X10*3/uL (0.0-0.2); Basophils Percent Auto 0.7 % (0-2); Eosinophils Absolute Auto 0.5 X10*3/uL (0.0-0.4); Eosinophils Percent Auto 4.5 % (0-4); Hemoglobin 11.5 g/dl (12.0-16.0); Imm Gran Abs Auto 0.05 X10*3/uL (0.00-0.03); Imm Gran Pct Auto 0.5 % (0.0-0.4); Lymphocytes Absolute Auto 2.4 X10*3/uL (1.2-4.9); Lymphocytes Percent Auto 23.3 % (20-40); Mean Corpuscular HGB Conc 31.1 g/dl (31.0-35.0); Mean Corpuscular Hemoglobin 23.9 pg (27.0-33.0); Mean Corpuscular Volume 76.8 fL (80.0-98.0); Mean Platelet Volume 8.5 fL (9.4-12.3); Monocytes Absolute Auto 0.6 X10*3/uL (0.1-1.2); Monocytes Percent Auto 5.6 % (2-11); Neutrophils Absolute Auto 6.6 x10*3/uL (2.0-8.3); Neutrophils Percent Auto 65.4 % (45-73); Platelet Count 510 X10*3/uL (160-400); Red Blood Count 4.82 X10*6/uL (4.20-5.50); Red Cell Distribution Width 18.3 % (11.0-16.0); White Blood Count 10.2 X10*3/uL (4.8-10.8)
[2022-09-24 12:44] LABS: COVID-19 Test Negative (Negative); IDNOW Serial# 08D9AD1C; IDNOW Serial# BCCEAD1C; Strep A Nucleic Acid Negative (Negative)
[2022-09-24 12:45] LABS: IDNOW Serial# 9DB6401D; Influenza A Negative (Negative); Influenza B2 Negative (Negative)
[2022-09-24 12:46] LABS: Alanine Aminotransferase 17 U/L (0-31); Albumin Level 4.2 g/dL (3.5-5.0); Alkaline Phosphatase 113 U/L (39-117); Anion Gap 13 (12-20); Aspartate Amino Transferase 17 U/L (5-31); Bilirubin Total 0.4 mg/dL (0.0-1.0); Blood Urea Nitrogen 13 mg/dL (9-16); C Reactive Protein 1.18 mg/dL (< or = 0.50); Calcium 9.3 mg/dL (8.4-10.2); Carbon Dioxide 20 mmol/L (22-29); Chloride 110 mmol/L (96-108); Creatinine Clr Calc Pharmacy 128.1; Estimated Glomerular Filt Rate > 60; Glucose Random 116 mg/dL (60-115); Magnesium 1.9 mg/dL (1.6-2.6); Potassium 4.1 mmol/L (3.3-5.1); Sodium 139 mmol/L (135-145); Total Protein 7.9 g/dL (6.5-8.0)
[2022-09-24 12:56] LABS: HCG Quantitative < 2 mIU/mL
[2022-09-24 13:06] LABS: Erythrocyte Sedimentation Rate 56 MM/HR (0-20)
--- NOTE | 2022-09-24 13:25 | ED.URI ---
HPI - URI/Sore Throat General Chief Complaint: Upper Respiratory Symptoms Stated Complaint: Pneumonia Time Seen by Provider: 09/24/22 12:31 Source: patient Mode of arrival: ambulatory Limitations: no limitations History of Present Illness HPI Narrative: 32 yo female with a pmh of asthma and depression here for four days of fever, sore throat, chills, SOB, headache and diarrhea. [facility] and was prescribed Azithromycin, but has not had improvement in her symptoms. She has no known sick contacts, although she was in [facility] over the weekend, and her daughter recently has a viral conjunctivitis which she also endorsed having. She endorses some chest pain with coughing, and some yellow mucus with her cough. MD elicited complaint: fever, cough, sore throat, rhinorrhea and nasal congestion Pertinent past history: asthma Onset (ago): day(s) (4) Consistency: constant Severity: moderate Description of mucous: yellow Able to tolerate fluids by mouth: Yes Exacerbating factors: nothing Relieving factors: nothing Context: recent travel Associated symptoms: fever, chills, myalgias, headache, rhinorrhea, nasal congestion, sore throat, cough, chest pain and shortness of breath Treatments prior to arrival: none Related Data Home Medications Medication Instructions Recorded Confirmed metoclopramide HCl 10 mg tablet 10 mg PO DAILY PRN Nausea 06/02/21 09/01/22 lorazepam 1 mg tablet 1 mg PO BID PRN 05/24/22 09/01/22 bupropion HCl 450 mg 24 hr tablet, 450 mg PO DAILY 09/01/22 09/01/22 extended release duloxetine 60 mg capsule,delayed 60 mg PO QAM 09/01/22 09/01/22 release sumatriptan succinate 50 mg tablet 50 mg PO PRN 09/01/22 09/01/22 Previous Rx's Medication Instructions Recorded Ventolin HFA 90 mcg/actuation 2 puff inhalation Q6H PRN 07/13/21 aerosol inhaler (albuterol sulfate) shortness of breath or wheezing #18 grams cholecalciferol (vitamin D3) 50 50 mcg PO DAILY 30 days #30 caps 05/31/22 mcg (2,000 unit) capsule nystatin-triamcinolone 100,000 1 appl topical BID PRN rash 10 06/08/22 unit/g-0.1 % topical cream days #30 grams evolocumab 140 mg/mL subcutaneous 140 mg subcut Q2W 30 days #3 mL 07/21/22 pen injector (Edyta Alvarado) ezetimibe 10 mg tablet (Zetia) 10 mg PO DAILY 30 days #30 tabs 07/29/22 rosuvastatin 40 mg tablet 40 mg PO DAILY 30 days #30 tabs 07/29/22 levothyroxine 88 mcg tablet 88 mcg PO DAILY 90 days #90 tabs 08/27/22 Allergies Allergy/AdvReac Type Severity Reaction Status Date / Time pantoprazole Allergy Unknown chest pain Verified 09/24/22 12:11 diphenhydramine Allergy Hives Verified 09/24/22 12:11 [From Benadryl] esomeprazole [From NEXIUM] AdvReac Mild DIARRHEA Verified 09/24/22 12:11 birch trees Allergy Unknown Sneezing Uncoded 09/01/22 08:27 oak trees Allergy Unknown nasal Uncoded 09/01/22 08:27 congestion SEASONAL ALLERGIES Allergy Unknown UNKNOWN Uncoded 09/01/22 08:27 Review of Systems Review of Systems: Yes all other systems are reviewed and are negative [facility] Past Medical History Medical History Allergy to cats Anemia Asthma Familial hypercholesterolemia Hypothyroidism Major depressive disorder, recurrent episode with anxious distress Migraine Multiple environmental allergies Obesity PCOS (polycystic ovarian syndrome) Psoriasis Vitamin D deficiency Surgical History History of removal of ovarian cyst Family History Family History Father Hyperlipidemia Mother Hyperlipidemia Hypertension Diabetes CVD (cardiovascular disease) Social History Social History Household Members: Family Household Members Other:: None Alcohol intake: never Patient Tobacco Use Status: Never used Tobacco e-Cigarette/Vaping Use: Never Used Advance Directives: No Advance Directives Information Provided: Yes Physical Exam Vital Signs: Vital Signs: Last Vital Signs Temp 98.4 F 09/24/22 13:45 Pulse 99 09/24/22 13:45 Resp 16 09/24/22 13:45 BP 106/78 09/24/22 13:45 Pulse Ox 99 09/24/22 13:45 O2 Del Method Room Air 09/24/22 13:45 BMI result Body Mass Index 37.1 Appearance: Alert. Oriented X3. No acute distress. Head: normocephalic, atraumatic. Eyes: Pupils equal, round and reactive to light. ENT: Pharynx normal. No tonsillar swelling or exudate. Neck: Normal inspection. CVS: Normal heart rate and rhythm. Pulses normal. Respiratory: No respiratory distress. Breath sounds normal. Skin: Skin warm and dry. Normal skin color. Normal skin turgor. No rashes. Extremities: No lower extremity edema. No joint swelling. Neuro/psych: Oriented X 3. No motor deficit. No sensory deficit. Normal speech and cognition. Medical Decision Making Medical Decision Making [facility] Narrative: Patient presented with symptoms of an upper respiratory infection. We performed viral testing, basic labs, and a chest xray and everything came back normal, so this is unlikely to be pneumonia or a more acute etiology. At this time we feel the patient is safe for discharge with otc medications, in supportive care for acute viral syndrome. Differential Diagnosis Differential Diagnoses: The differential diagnosis associated with the presentation includes upper respiratory infection covid pneumonia strep flu Lab Data [facility] Lab Attestation statement: I reviewed the patient's lab results. 09/24/22 12:16 09/24/22 12:16 Labs: Lab Results 09/24/22 09/24/22 09/24/22 Range/Units 12:16 12:16 12:16 WBC 10.2 (4.8-10.8) X10*3/uL RBC 4.82 (4.20-5.50) X10*6/uL Hgb 11.5 L (12.0-16.0) g/dl Hct 37.0 (37.0-47.0) % MCV 76.8 L (80.0-98.0) fL MCH 23.9 L (27.0-33.0) pg MCHC 31.1 (31.0-35.0) g/dl RDW 18.3 H (11.0-16.0) % Plt Count 510 H (160-400) X10*3/uL MPV 8.5 L (9.4-12.3) fL Immature Gran % (Auto) 0.5 H (0.0-0.4) % Neut % (Auto) 65.4 (45-73) % Lymph % (Auto) 23.3 (20-40) % [place] % (Auto) 5.6 (2-11) % Eos % (Auto) 4.5 H (0-4) % Baso % (Auto) 0.7 (0-2) % Lymph # (Auto) 2.4 (1.2-4.9) X10*3/uL [place] # (Auto) 0.6 (0.1-1.2) X10*3/uL Eos # (Auto) 0.5 H (0.0-0.4) X10*3/uL Baso # (Auto) 0.1 (0.0-0.2) X10*3/uL Abs Immat Gran (auto) 0.05 H (0.00-0.03) X10*3/uL Absolute Neuts (auto) 6.6 (2.0-8.3) x10*3/uL Absolute Nucleated RBC 0.000 (0.0-0.012) X10*3/uL Nucleated RBC % (auto) 0.0 (0.0-0.2) /100WBC ESR 56 H (0-20) MM/HR Sodium 139 (135-145) mmol/L Potassium 4.1 (3.3-5.1) mmol/L Chloride 110 H (96-108) mmol/L Carbon Dioxide 20 L (22-29) mmol/L Anion Gap 13 (12-20) BUN 13 (9-16) mg/dL Creatinine 0.75 (0.5-1.4) mg/dL Estim Creat Clear Calc 128.1 Estimated GFR > 60 Random Glucose 116 H (60-115) mg/dL Calcium 9.3 (8.4-10.2) mg/dL Magnesium 1.9 (1.6-2.6) mg/dL Total Bilirubin 0.4 (0.0-1.0) mg/dL AST 17 (5-31) U/L ALT 17 (0-31) U/L Alkaline Phosphatase 113 (39-117) U/L C-Reactive Protein 1.18 H (< or = 0.50) mg/dL Total Protein 7.9 (6.5-8.0) g/dL Albumin 4.2 (3.5-5.0) g/dL Beta HCG, Quant mIU/mL COVID-19 ([facility]) (Negative) COVID-19 Clin Com Influenza Type A (IQRA) (Negative) Influenza Type B (IQRA) (Negative) Influenza A & B Note S. pyogenes GrpA IQRA (Negative) 09/24/22 09/24/22 09/24/22 Range/Units 12:16 12:16 12:16 WBC (4.8-10.8) X10*3/uL RBC (4.20-5.50) X10*6/uL Hgb (12.0-16.0) g/dl Hct (37.0-47.0) % MCV (80.0-98.0) fL MCH (27.0-33.0) pg MCHC (31.0-35.0) g/dl RDW (11.0-16.0) % Plt Count (160-400) X10*3/uL MPV (9.4-12.3) fL Immature Gran % (Auto) (0.0-0.4) % Neut % (Auto) (45-73) % Lymph % (Auto) (20-40) % [place] % (Auto) (2-11) % Eos % (Auto) (0-4) % Baso % (Auto) (0-2) % Lymph # (Auto) (1.2-4.9) X10*3/uL [place] # (Auto) (0.1-1.2) X10*3/uL Eos # (Auto) (0.0-0.4) X10*3/uL Baso # (Auto) (0.0-0.2) X10*3/uL Abs Immat Gran (auto) (0.00-0.03) X10*3/uL Absolute Neuts (auto) (2.0-8.3) x10*3/uL Absolute Nucleated RBC (0.0-0.012) X10*3/uL Nucleated RBC % (auto) (0.0-0.2) /100WBC ESR (0-20) MM/HR Sodium (135-145) mmol/L Potassium (3.3-5.1) mmol/L Chloride (96-108) mmol/L Carbon Dioxide (22-29) mmol/L Anion Gap (12-20) BUN (9-16) mg/dL Creatinine (0.5-1.4) mg/dL Estim Creat Clear Calc Estimated GFR Random Glucose (60-115) mg/dL Calcium (8.4-10.2) mg/dL Magnesium (1.6-2.6) mg/dL Total Bilirubin (0.0-1.0) mg/dL AST (5-31) U/L ALT (0-31) U/L Alkaline Phosphatase (39-117) U/L C-Reactive Protein (< or = 0.50) mg/dL Total Protein (6.5-8.0) g/dL Albumin (3.5-5.0) g/dL Beta HCG, Quant mIU/mL COVID-19 ([facility]) Negative (Negative) COVID-19 Clin Com See Note Influenza Type A (IQRA) Negative (Negative) Influenza Type B (IQRA) Negative (Negative) Influenza A & B Note See Note S. pyogenes GrpA IQRA Negative (Negative) 09/24/22 Range/Units 12:16 WBC (4.8-10.8) X10*3/uL RBC (4.20-5.50) X10*6/uL Hgb (12.0-16.0) g/dl Hct (37.0-47.0) % MCV (80.0-98.0) fL MCH (27.0-33.0) pg MCHC (31.0-35.0) g/dl RDW (11.0-16.0) % Plt Count (160-400) X10*3/uL MPV (9.4-12.3) fL Immature Gran % (Auto) (0.0-0.4) % Neut % (Auto) (45-73) % Lymph % (Auto) (20-40) % [place] % (Auto) (2-11) % Eos % (Auto) (0-4) % Baso % (Auto) (0-2) % Lymph # (Auto) (1.2-4.9) X10*3/uL [place] # (Auto) (0.1-1.2) X10*3/uL Eos # (Auto) (0.0-0.4) X10*3/uL Baso # (Auto) (0.0-0.2) X10*3/uL Abs Immat Gran (auto) (0.00-0.03) X10*3/uL Absolute Neuts (auto) (2.0-8.3) x10*3/uL Absolute Nucleated RBC (0.0-0.012) X10*3/uL Nucleated RBC % (auto) (0.0-0.2) /100WBC ESR (0-20) MM/HR Sodium (135-145) mmol/L Potassium (3.3-5.1) mmol/L Chloride (96-108) mmol/L Carbon Dioxide (22-29) mmol/L Anion Gap (12-20) BUN (9-16) mg/dL Creatinine (0.5-1.4) mg/dL Estim Creat Clear Calc Estimated GFR Random Glucose (60-115) mg/dL Calcium (8.4-10.2) mg/dL Magnesium (1.6-2.6) mg/dL Total Bilirubin (0.0-1.0) mg/dL AST (5-31) U/L ALT (0-31) U/L Alkaline Phosphatase (39-117) U/L C-Reactive Protein (< or = 0.50) mg/dL Total Protein (6.5-8.0) g/dL Albumin (3.5-5.0) g/dL Beta HCG, Quant < 2 mIU/mL COVID-19 ([facility]) (Negative) COVID-19 Clin Com Influenza Type A ([facility]RA) (Negative) Influenza Type B (IQRA) (Negative) Influenza A & B Note S. pyogenes GrpA IQRA (Negative) Independent Interpretation I performed an independent interpretation of an: Plain X-Ray Interpretation: Chest x-ray clear, no evidence of pneumonia or effusion. Radiology Impression Discussion of test interpretation with radiology: I have reviewed the radiologist's reading. Radiologist Impression: EXAMINATION: XR CHEST CLINICAL INFORMATION: Cough, SOB COMPARISON: None available. TECHNIQUE: 2 views of the chest were obtained. FINDINGS: No significant abnormality is noted involving the heart, lungs, mediastinum, bony thorax or soft tissues. XR/XR chest 2V IMPRESSION: Unremarkable chest examination. External Record Review External record reviewed: Office record, Outpatient record, Prior outpatient labs and Prior outpatient radiology Prescription Management I considered prescription management with: Antibiotic Critical Care Time Critical Care Time Critical Care Time: No Discharge Plan Discharge Clinical Impression: Upper respiratory tract infection Patient Disposition: Home, Self-Care Instructions: Upper Respiratory Infection (ED) Additional Instructions: You presented with fever and respiratory symptoms. We performed basic labs, covid, flu, strep test, and a chest xray on you, and everything came back normal. You have been diagnosed with an upper respiratory infection. You can manage your symptoms with over the counter medications such as tylenol. Rest up and drink plenty of fluids Prescriptions: No Action albuterol sulfate [Ventolin HFA] 90 mcg/actuation HFA aerosol inhaler 2 puff inhalation Q6H PRN (Reason: shortness of breath or wheezing) Qty: 18 1RF cholecalciferol (vitamin D3) 50 mcg (2,000 unit) capsule 50 mcg PO DAILY 30 Days Qty: 30 11RF nystatin-triamcinolone 100,000-0.1 unit/g-% cream 1 appl topical BID PRN (Reason: rash) 10 Days Qty: 30 0RF rosuvastatin 40 mg tablet 40 mg PO DAILY 30 Days Qty: 30 11RF ezetimibe [Zetia] 10 mg tablet 10 mg PO DAILY 30 Days Qty: 30 11RF levothyroxine 88 mcg tablet 88 mcg PO DAILY 90 Days Qty: 90 3RF metoclopramide HCl 10 mg Tablet 10 mg PO DAILY PRN (Reason: Nausea) Repatha SureClick 140 mg/mL pen injector 140 mg subcut Q2W 30 Days Qty: 3 11RF lorazepam 1 mg tablet 1 mg PO BID PRN sumatriptan succinate 50 mg tablet 50 mg PO PRN bupropion HCl 450 mg tablet extended release 24 hr 450 mg PO DAILY duloxetine 60 mg capsule,delayed release(DR/EC) 60 mg PO QAM Stand Alone Forms: Work/School Release Interventions: ED Discharge Assessment Last Done: 09/24/22 14:35 Discharge Date/Time: 09/24/22 14:35
[2022-09-24 13:45] VITALS: BP 106/78; PULSE 99; RESP 16; TEMP 36.9; O2SAT 99
== END 2022-09-24 14:35 | disposition home or self-care (01) ==
PROVIDERS: Physician Assistant Medical; Emergency Provider Emergency Medicine; PCP Internal Medicine
DX: J06.9 Acute upper respiratory infection, unspecified (principal); R05.9 Cough, unspecified; J02.9 Acute pharyngitis, unspecified; Z20.822 Contact with and (suspected) exposure to COVID-19
CPT/HCPCS: 36415; 71046; 80053; 83735; 84702; 85025; 85652; 86140; 87502; 87635; 87651; 99283

== ENCOUNTER 2022-11-10 09:13 | Outpatient (AMB) | payer OTHER, SELFPAY ==
--- NOTE | 2022-11-10 09:13 | MHC.OFFVIS ---
Intake Intake Visit Reasons: F/U HLD Allergies pantoprazole Allergy (Unknown, Verified 11/10/22 11:36) chest pain diphenhydramine [From Benadryl] Allergy (Verified 11/10/22 11:36) Hives esomeprazole [From NEXIUM] Adverse Reaction (Mild, Verified 11/10/22 11:36) DIARRHEA birch trees Allergy (Unknown, Uncoded 11/10/22 11:36) Sneezing oak trees Allergy (Unknown, Uncoded 11/10/22 11:36) nasal congestion SEASONAL ALLERGIES Allergy (Unknown, Uncoded 11/10/22 11:36) UNKNOWN Medication List - Last Reconciled 11/10/22 by Kim Sims, DO bupropion HCl 450 mg PO DAILY cholecalciferol (vitamin D3) 50 mcg PO DAILY 30 days duloxetine 40 mg PO QAM evolocumab (Repatha SureClick) 140 mg subcut Q2W 30 days ezetimibe (Zetia) 10 mg PO DAILY 30 days levothyroxine 88 mcg PO DAILY 90 days lorazepam 1 mg PO BID PRN metoclopramide HCl 10 mg PO DAILY PRN rosuvastatin 40 mg PO DAILY 30 days sumatriptan succinate 50 mg PO PRN Ventolin HFA 90 mcg/actuation (albuterol sulfate) 2 puffs inhalation Q6H PRN NS HPI HPI Comments History of Present Illness Details 32 YO Female with PMHx HLD and Hypothyroidism who is seen in F/U for HLD, Hypothyroidism and Hyperandrogenism. ?1) Hypothyroidism: ?First diagnosed with Hypothyroidism in April 2014 with labs revealing TSH >100. This occured shortly after her with her twins. TSH was checked during the and was WNL. A few months later she was having significant symptoms of hypothyroidism and labs were repeated revealing TSH >100. She was started on Levothyroxine 100 mcg PO daily. 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 Labs later revealed overreplacement, so levothyroxine was decreased. She remains on levothyroxine 88 mcg PO daily now. ?Currently does complain of fatigue and worsening depression. She also reports intermittent swelling in her neck, not currently present. She did have an US head and neck which revealed mildly enlarged but not abnormal appearing cervical lymph nodes. ?Menses are regular. ?Denies using Biotin ?She did have a thyroid US that was read as a multinodular thyroid. Images were independently reviewed and this represents a lonnie gland with no discrete nodules, just pseudonodules. She denies any compressive symptoms currently. ?2) HLD: ?Was diagnosed with HLD at the age of 19. She was on this medication from the age of [age], and this was stopped during . She resumed it briefly in between pregnancies from [id number], but then stopped due to another . She just stopped in January 2018 and shortly after presented to us. ?She did have elevated Apo B levels, and history consistent with familial HLD. She meets this diagnosis based on criteria. She was started on Atorvastatin 40 mg PO daily, but LDL remained significantly elevated at 229. She was changed to Atorvastatin 80 mg PO daily and Zetia 10 mg PO daily at that time. We attempted to get Praluent covered for her, but this was consistently denied by her insurance. ?Repeat lipid panel reveals LDL still elevated >200. She also reports significant myalgias to the point she is unable to sleep at night. ?She does have a significant family history of premature CAD in her mother with her first VT in her 40's, and also her Grandfather. ?She is not interested in additional pregnancies. She is using abstinence or condoms for contraception. She was referred to Cardiology and was referred for coronary artery calcium scoring, but the results of this are unavailable at this time. She then stopped her Statin and Zetia of her own accord. Labs were repeated and revealed hyperlipidemia. She was resumed on Rosuvastatin 40 mg PO daily and Zetia 10 mg PO daily and LDL remains above goal. She was prescribed Repatha, but reports she was unable to fill this at the pharmacy. ?3) Hirsutism: ?Patient briefly mentions hirsutism of the neck and arms, but nowhere else on the body. Had no difficulty with conception. Menses have always been regular. Did have elevated Testosterone levels. Was started on Spironolactone 50 mg PO daily, which was then titrated upward to 100 mg PO daily. She did notice improvement in her hirsutism with this. She stopped this of her own accord. Testosterone levels were repeated after she stopped this and were WNL. She does report a dermoid cyst that was removed many years ago from her ovary. She has a diagnosis of obesity and was using Ozempic 0.25 mg once a week. She then stopped this as it was cost prohibitive. ?Thyroid US: ?02/20/2021 Right Thyroid Lobe: 4.0 x 1.4 x 0.9 cm, volume 2.5 mL. Previously 4.5 x 1.5 x 1.2 cm, volume 4.2 mL. Parenchyma: The gland echotexture is heterogeneous. Thyroid vascularity is increased. Left Thyroid Lobe: 4.0 x 1.3 x 1.5 cm, volume 4.1 mL. Previously 4.2 x 1.1 x 1.5 cm, volume 3.6 mL. Parenchyma: The gland echotexture is heterogeneous. Thyroid vascularity is increased. Isthmus: 0.17 cm in maximum AP dimension. Previously 0.3 cm. Comparison of the nodules with prior exam is difficult. Estimated total number of nodules greater than or equal to 1 cm: 0. Time Buyer nodules versus areas of gland heterogeneity are described as follows: 1.? Location: Right inferior. ?? ? Size: 0.5 x 0.5 x 0.6 cm, volume 0.1 mL. ?? ? Previously: Not seen on the previous study. ?? ? Nodule characteristics: ?? ? Composition: Spongiform (0). ?? ? Echogenicity: Anechoic (0). ?? ? Shape: Not taller than wide (0). ?? ? Margins: Smooth (0). ?? ? Echogenic Foci: None (0). ? ACR TI-RADS total points: 0 ?? ? ACR TI-RADS category: 1 ?? ? 2.? Location: Right inferior. ?? ? Size: 0.7 x 0.5 x 0.5 cm, volume 0.1 mL. ?? ? Previously: 0.8 x 0.5 x 0.5 cm, volume 0.1 mL. ?? ? Nodule characteristics: ?? ? Composition: Spongiform (0). ?? ? Echogenicity: Anechoic (0). ?? ? Shape: Not taller than wide (0). ?? ? Margins: Smooth (0). ?? ? Echogenic Foci: None (0). ? ACR TI-RADS total points: 0 ?? ? ACR TI-RADS category: 1 ? Significant change in size (>/= 20% in 2 dimensions and minimal increase of 2 mm or 50% or greater increase in volume): ?? ? Change in features: ?? ? Change in ACR TI-RADS risk category: 3.? Location: Left mid. ?? ? Size: 0.6 x 0.61 x 0.4 cm, volume 0.1 mL. ?? ? Previously: 0.5 x 0.4 x 0.4 cm, volume 0.04 mL. ?? ? Nodule characteristics: ?? ? Composition: Spongiform (0). ?? ? Echogenicity: Anechoic (0). ?? ? Shape: Not taller than wide (0). ?? ? Margins: Smooth (0). ?? ? Echogenic Foci: None (0). ? ACR TI-RADS total points: 0 ?? ? ACR TI-RADS category: 1 ? Significant change in size (>/= 20% in 2 dimensions and minimal increase of 2 mm or 50% or greater increase in volume): ?? ? Change in features: ?? ? Change in ACR TI-RADS risk category: NODES: See separate soft tissue neck ultrasound performed the same day. US Soft Tissue Head and Neck: 02/20/2021 FINDINGS: THYROID BED: Prior thyroidectomy. No residual thyroid tissue demonstrated in the thyroid bed. No cystic or solid nodules demonstrated in the thyroid bed. RIGHT NECK SOFT TISSUES: Scattered nodes are present bilaterally. The largest node on the right level 2 and demonstrates cortical thickening. Lymph nodes otherwise demonstrate normal architecture with normal fatty hilus, normal cortical thickness, and no cystic change or calcification. No abnormal color flow. The largest nodes are as follows: Level 2: 2.4 x 0.9 x 1.5 cm.? Cortical thickening otherwise normal ras architecture. Level 2:1.4 x 0.5 x 1.9 cm. Normal abdominal architecture. LEFT NECK SOFT TISSUES: Scattered architecturally normal nodes are present. The nodes show normal fatty hilus, normal cortical thickness, and no cystic change or calcification. No abnormal color flow. The largest nodes are as follows: Level 1B: 2.1 x 0.6 x 1.4 cm.? Normal ras architecture. US/US soft tiss head and/or neck IMPRESSION: 1. Bilateral cervical lymphadenopathy. There are 3 enlarged lymph nodes, one of which demonstrates abnormal ras architecture with cortical thickening. ? 2. If clinically indicated further evaluation of the neck soft tissues and nodes may be performed with CT soft tissue neck with intravenous contrast. Labs: Laboratory Tests 05/31/22 07/19/22 07/19/22 09:33 09:53 09:53 Creatinine 0.87 Estimated GFR > 60 LDL Cholesterol Di rect 147 H 25-OH Vitamin D To akhil 11.0 TSH 2.91 Free T4 0.80 PFSH Medical History Allergy to cats Anemia Asthma Familial hypercholesterolemia Hypothyroidism Major depressive disorder, recurrent episode with anxious distress Migraine Multiple environmental allergies Obesity PCOS (polycystic ovarian syndrome) Psoriasis Vitamin D deficiency Surgical History History of removal of ovarian cyst Family History Father Hyperlipidemia Mother Hyperlipidemia Hypertension Diabetes CVD (cardiovascular disease) Social History Household Members: Family Household Members Other:: None Alcohol intake: never Patient Tobacco Use Status: Never used Tobacco e-Cigarette/Vaping Use: Never Used Assessment & Plan Assessment & Plan (1) Familial hypercholesterolemia: Code(s): E78.01 - Familial hypercholesterolemia Plan: Patient with familial HLD. LDL goal is <100, but optimally <70. She is on max dose statin as well as Zetia and LDL remains elevated. She was unable to picker tender helper Repatha from the pharmacy. I have asked my nurse to look into this. She also repeated lab work this morning. Results are pending. I will call to review results. I did advise her that these medications can be teratogenic, meaning harmful to an unborn baby. She is not planning . She states she will notify me immediately if her plans change. Given her history of HLD and her intermittent chest pain, I did refer her to Cardiology for evaluation. It is unclear if her coronary artery calcium scoring was complete. I did send a message to Hand Wrapper Operator regarding this. We reviewed that her Family history makes her at high risk for an adverse cardiac event such as a heart attack. She verbalized understanding. All of her questions were answered today. She is in agreement with this plan of care.?? I spent 20 minutes in reviewing the record, seeing the patient and documenting in the medical record, including 5 minutes on the phone with the Patient. (2) PCOS (polycystic ovarian syndrome): Code(s): E28.2 - Polycystic ovarian syndrome Plan: Patient with elevated testosterone in the past. Tesotsterone now at goal. (3) Hypothyroidism: Code(s): E03.9 - Hypothyroidism, unspecified Plan: Remains on levothyroxine 88 mcg PO daily. Repeat labs pending. Images of her US of the thyroid and neck dated 02/20/2021 were independently reviewed today. What was read as a thickened cortex of a lymph node appears to solely represent a mildly enlarged normal appearing lymph node. Her thyroid gland contains no true nodules, only pseudonodules. No further surveillance imaging recommended. I adivsed her to notify me if she begins experiencing any painless swelling of her lymph nodes in the neck. She states she will do so. (4) Vitamin D deficiency: Code(s): E55.9 - Vitamin D deficiency, unspecified Plan: Will repeat levels now and reassess. Telehealth Telehealth Location of provider rendering services: practice address Location of patient: address on file Patient Identification confirmed using: Name, : Yes Telehealth method: voice only Patient verbally consented to treatment: Yes Patient verbally consented to billing insurance company: Yes Patient informed of any privacy concerns related to visit: Yes Coding Level of Care Code Tele Est Pt Level 3 (36719) Diagnoses Familial hypercholesterolemia E78.01 PCOS (polycystic ovarian syndrome) E28.2 Hypothyroidism E03.9 Vitamin D deficiency E55.9
== END 2022-11-10 12:31 | disposition home or self-care (01) ==
LOC: HO.ENCR 09:13
PROVIDERS: PCP Internal Medicine; Visit Provider Internal Medicine
DX: E78.01 Familial hypercholesterolemia (principal); E28.2 Polycystic ovarian syndrome; E03.9 Hypothyroidism, unspecified; E55.9 Vitamin D deficiency, unspecified
CPT/HCPCS: 99213

== ENCOUNTER 2022-11-10 09:13 | Outpatient (REF) | payer OTHER, SELFPAY ==
[2022-11-10 11:42] LABS: Alanine Aminotransferase 14 U/L (0-31); Albumin Level 4.4 g/dL (3.5-5.0); Alkaline Phosphatase 83 U/L (39-117); Anion Gap 12 (12-20); Aspartate Amino Transferase 15 U/L (5-31); Blood Urea Nitrogen 8 mg/dL (9-16); Calcium 9.9 mg/dL (8.4-10.2); Carbon Dioxide 20 mmol/L (22-29); Chloride 108 mmol/L (96-108); Cholesterol 140 mg/dL; Estimated Glomerular Filt Rate > 60; Glucose Random 93 mg/dL (60-115); HDL Cholesterol 58 mg/dL; LDL Cholesterol Calculated 72 mg/dl; Sodium 136 mmol/L (135-145); Total Protein 7.6 g/dL (6.5-8.0); Triglycerides 53 mg/dL
[2022-11-10 11:49] LABS: Free T4 (Free Thyroxine) 1.08 ng/dL (0.71-1.85); Thyroid Stimulating Hormone 0.09 uIU/mL (0.32-4.0); Vitamin D 25-OH Total 20.8 ng/mL (>30)
[2022-11-12 12:57] LABS: LDL Cholesterol Direct 69 mg/dL (<100)
== END 2022-11-10 09:14 | disposition home or self-care (01) ==
LOC: HO.LAB 09:13
PROVIDERS: PCP Internal Medicine; Visit Provider Internal Medicine
DX: E78.01 Familial hypercholesterolemia (principal); E03.9 Hypothyroidism, unspecified; E55.9 Vitamin D deficiency, unspecified; E78.5 Hyperlipidemia, unspecified; R53.83 Other fatigue; L68.0 Hirsutism; E28.2 Polycystic ovarian syndrome; F32.A Depression, unspecified; Z79.899 Other long term (current) drug therapy
CPT/HCPCS: 36415; 80053; 80061; 82306; 83721; 84439; 84443

== ENCOUNTER → 2022-11-19 09:05 | Outpatient (REF) | payer OTHER, SELFPAY ==
--- NOTE | 2022-11-19 09:07 | CA_ITS ---
Transthoracic Echocardiogram Patient (Last, First, Middle): Kayli Gilmore, Gender: Female Date of : 1990 Age: 32 Procedure Date: 11/19/2022 Procedure Type: Transthoracic Echocardiogram Location: OP Height: 165.1 cm Weight: 95.26 kg BSA: 2.02 m2 Heart Rate: bpm BP: 110 / 70 mmHg Women'S Activities Adviser: TO Referring MD: Edvin Jaramillo MD Symptoms: R07.9 - Chest pain, unspecified Study Quality: Fair/ Contrast Conclusions: - Normal left ventricular size, thickness, systolic function, and wall motion. The visually estimated ejection fraction is between 55-60%. Diastolic function is normal for age. - Normal right ventricular cavity size and systolic function. - No significant valvular or pericardial pathology. Findings Procedure Information Contrast agent, definity, is being given per protocol without apparent complications. Left Ventricle Normal left ventricular size, thickness, systolic function, and wall motion. The visually estimated ejection fraction is between 55-60%. Diastolic function is normal for age. Right Ventricle Normal right ventricular cavity size and systolic function. Atria Both atria are normal in size. Aortic Valve Normal aortic valve structure and function. There is no aortic valve stenosis. There is no aortic valve regurgitation. Mitral Valve Normal mitral valve structure and function. There is no mitral valve regurgitation. There is no mitral valve stenosis. Pulmonic Valve The pulmonic valve is likely normal. Tricuspid Valve Normal tricuspid valve structure. There is no tricuspid valve regurgitation. Tricuspid regurgitation envelope is inadequate for calculation of right ventricular systolic pressure. Normal right atrial pressure. Great Vessels All visible segments of the aorta are normal in size. The visualized portions of the pulmonary artery and branches are normal. Venous The inferior vena cava is normal in size and collapses greater than 50% with inspiration. Pericardium/Pleural There is no evidence of pericardial effusion. Measurements 2D Linear Measurements IVSd: 0.90 0.6-0.9/0.6-1.0 cm LVIDd: 4.50 3.9-5.3/4.2-5.9 cm LVIDd Index: 2.23 2.4-3.2/2.2-3.1 cm/m2 LVIDs: 3.00 2.0-3.6 cm LVPWd: 0.70 0.7-1.1 cm LA Diam: 3.10 2.7-3.8/3.0-4.0 cm LAIDs Index: 1.53 1.5-2.3 cm/m2 LV Mass: 141.29 67-162/88-224 g LV Mass Index: 69.95 43-95/49-115 g/m2 LVOT Diam: 2.00 3.0+(-)1.3 cm 2D Systolic Function EF 4C: 56.00 >55% EF 2C: 52.60 >55% EF BiP: 53.40 >55% Mitral Valve MV Pk E: 0.66 MV PK A: 0.54 MV Decel Time: 106.00 E/A: 1.20 E'Lateral: 13.10 E'Medial: 10.30 E/E' Med: 6.40 E/E' Lat: 5.10 PHT: 31.00 MVA PHT: 7.10 Decel [place]: 6.25 Aortic Valve AoV Pk [place]: 1.26 AoV Mn Lavon: 0.87 AoV VTI: 0.22 AoV Pk Grad: 6.00 Aov Mn Grad: 3.00 IRASEMA Cont.VTI: 2.33 LVOT LVOT Pk [place]on: 0.86 LVOT Mn [place]: 0.53 LVOT VTI: 0.17 LVOT Pk Grad: 3.00 LVOT Mn Grad: 1.00 LVOT Diam: 2.00 LVOT Area: 3.14 Diastolic Function MV Pk E: 0.66 MV Pk A: 0.54 E/A: 1.20 E'Medial: 10.30 E/E' Med: 6.40 E' Laterial: 13.10 E/E' Lat: 5.10 Right Ventricle TAPSE (mm): 18.70 TVS' Lavon: 11.90 Tricuspid Valve RA Press: 3.00 Great Vessels Aorta Sinus of Valsalva: 2.90 2.0-3.5 cm Ao Asc: 2.40 2.1-3.4 cm Updated in Other Vendor System with Status of Final Sincere Munguia MD electronically signed on 11/21/2022 6:12:06 PM with status of Final
== END ==
LOC: HO.CARD 09:05
PROVIDERS: PCP Internal Medicine; Visit Provider Internal Medicine
DX: R07.9 Chest pain, unspecified (principal)
CPT/HCPCS: 93306; Q9957

== ENCOUNTER → 2022-11-19 09:07 | Outpatient (BNV) | payer OTHER, SELFPAY | PROVIDERS: PCP Internal Medicine; Visit Provider Internal Medicine Cardiovascular Disease | DX: R07.9 Chest pain, unspecified (principal) | CPT/HCPCS: 93306 ==

== ENCOUNTER 2023-03-08 07:41 | Emergency (ER) | payer OTHER, SELFPAY ==
--- NOTE | ~2023-03-08 | XR_ITS ---
EXAMINATION: XR CHEST CLINICAL INFORMATION: Covid positive, cough, fever COMPARISON: Chest 09/24/2022 TECHNIQUE: 2 views of the chest were obtained. FINDINGS: No significant abnormality is noted involving the heart, lungs, mediastinum, bony thorax or soft tissues. XR/XR chest 2V IMPRESSION: No acute cardiopulmonary disease.
[2023-03-08 07:48] VITALS: BP 116/74; PULSE 100; RESP 18; TEMP 36.7; O2SAT 98; BMI 34.9
--- NOTE | 2023-03-08 08:54 | ECG_ITS ---
Test Reason : CHEST PAIN Blood Pressure : / mmHG Vent. Rate : 082 BPM Atrial Rate : 082 BPM P-R Int : 148 ms QRS Dur : 088 ms QT Int : 370 ms P-R-T Axes : 027 014 023 degrees QTc Int : 432 ms Normal sinus rhythm Intra-ventricular conduction delay Borderline ECG When compared with ECG of 30-JUL-2022 00:57, No significant change was found Referred By: Jesus Mckeon Electronically Signed By:PEGGY RUFFIN MD
--- NOTE | 2023-03-08 09:30 | PC.NURSE ---
labs obtained and sent by [facility].
[2023-03-08 09:33] LABS: MANUAL DIFF FLAG NO
[2023-03-08 09:36] LABS: Basophils Percent Auto 0.4 % (0-2); Eosinophils Absolute Auto 0.4 X10*3/uL (0.0-0.4); Eosinophils Percent Auto 3.8 % (0-4); Hematocrit 38.6 % (37.0-47.0); Hemoglobin 12.3 g/dl (12.0-16.0); Imm Gran Abs Auto 0.06 X10*3/uL (0.00-0.03); Imm Gran Pct Auto 0.6 % (0.0-0.4); Lymphocytes Absolute Auto 2.2 X10*3/uL (1.2-4.9); Lymphocytes Percent Auto 21.4 % (20-40); Mean Corpuscular HGB Conc 31.9 g/dl (31.0-35.0); Mean Corpuscular Hemoglobin 26.6 pg (27.0-33.0); Mean Corpuscular Volume 83.4 fL (80.0-98.0); Mean Platelet Volume 8.5 fL (9.4-12.3); Monocytes Absolute Auto 0.5 X10*3/uL (0.1-1.2); Neutrophils Absolute Auto 7.1 x10*3/uL (2.0-8.3); Neutrophils Percent Auto 68.8 % (45-73); Platelet Count 460 X10*3/uL (160-400); Red Blood Count 4.63 X10*6/uL (4.20-5.50); Red Cell Distribution Width 18.6 % (11.0-16.0); White Blood Count 10.4 X10*3/uL (4.8-10.8)
--- NOTE | 2023-03-08 09:45 | ED.GENADULT ---
HPI - General Adult General Chief complaint: General Medical Stated complaint: Covid+/Chest pain/Cough Time Seen by Provider: 03/08/23 08:54 Source: patient Mode of arrival: ambulatory Limitations: no limitations History of Present Illness HPI narrative: This is a 32-year-old female history of obesity, depression, PCOS, hypothyroidism, anxiety presenting to the emergency department for evaluation of fatigue, malaise, myalgias, productive cough of yellow/green sputum, chest discomfort, shortness of breath, subjective fevers and chills for the past 8 days. Patient reports 7 days ago she tested positive for COVID-19, was prescribed the antiviral medication however did not take it. Patient reports her symptoms do not seem to be improving. Patient denies nausea, vomiting, abdominal pain, headache, vision changes, dizziness. Related Data Home Medications Medication Instructions Recorded Confirmed metoclopramide HCl 10 mg tablet 10 mg PO DAILY PRN Nausea 06/02/21 11/10/22 lorazepam 1 mg tablet 1 mg PO BID PRN 05/24/22 11/10/22 bupropion HCl 450 mg 24 hr tablet, 450 mg PO DAILY 09/01/22 11/10/22 extended release sumatriptan succinate 50 mg tablet 50 mg PO PRN 09/01/22 11/10/22 duloxetine 40 mg capsule,delayed 40 mg PO QAM 11/10/22 11/10/22 release Previous Rx's Medication Instructions Recorded Ventolin HFA 90 mcg/actuation 2 puff inhalation Q6H PRN 07/13/21 aerosol inhaler (albuterol sulfate) shortness of breath or wheezing #18 grams cholecalciferol (vitamin D3) 50 50 mcg PO DAILY 30 days #30 caps 05/31/22 mcg (2,000 unit) capsule evolocumab 140 mg/mL subcutaneous 140 mg subcut Q2W 30 days #3 mL 07/21/22 pen injector (Repatha SureHumbertoick) ezetimibe 10 mg tablet (Zetia) 10 mg PO DAILY 30 days #30 tabs 07/29/22 rosuvastatin 40 mg tablet 40 mg PO DAILY 30 days #30 tabs 07/29/22 levothyroxine 75 mcg tablet 75 mcg PO DAILY 30 days #30 tabs 11/10/22 albuterol sulfate 90 mcg/actuation 2 inh inhalation Q4-6H PRN 03/08/23 breath activated powder inhaler shortness of breath or wheezing #1 ea azithromycin 250 mg tablet See Rx Instructions PO .COMPLEX #6 03/08/23 tabs benzonatate 100 mg capsule 100 mg PO BID PRN cough #20 caps 03/08/23 prednisone 20 mg tablet 40 mg (2 x 20 mg) PO DAILY 5 days 03/08/23 #10 tabs Allergies Allergy/AdvReac Type Severity Reaction Status Date / Time pantoprazole Allergy Unknown chest pain Verified 03/08/23 07:52 diphenhydramine Allergy Hives Verified 03/08/23 07:52 [From Benadryl] esomeprazole [From NEXIUM] AdvReac Mild DIARRHEA Verified 03/08/23 07:52 birch trees Allergy Unknown Sneezing Uncoded 03/08/23 07:52 oak trees Allergy Unknown nasal Uncoded 03/08/23 07:52 congestion SEASONAL ALLERGIES Allergy Unknown UNKNOWN Uncoded 03/08/23 07:52 Review of Systems Review of Systems: Constitutional : No Weight loss, + Fever, + Chills, + Fatigue, + Malaise ENT/Mouth : No sore throat, No Rhinorrhea Eyes: No Eye Pain, No Swelling, No Redness Cardiovascular : No Chest Pain, No SOB, No Dyspnea on Exertion, No Orthopnea, No Edema, No Palpitations Respiratory : + Cough, + Sputum, No Wheezing Gastrointestinal : No Nausea, No Vomiting, No Diarrhea, No Constipation, No abdominal Pain, No Hematochezia, No Melena Genitourinary : No Dysuria, No Urinary Frequency, No Hematuria, Musculoskeletal : No joint pain, + Myalgias, No Joint Swelling Skin : No Skin Lesions, No rash Neuro : No Weakness, No Numbness, No Dizziness, No Headache Psych : No Anxiety/Panic, No Depression All other systems reviewed and are negative Yes all other systems are reviewed and are negative [facility] Past Medical History Attestation statement: The following information was validated with the patient. Source: old records reviewed and nursing notes reviewed Medical History Obesity Anemia Psoriasis Asthma Migraine Major depressive disorder, recurrent episode with anxious distress Familial hypercholesterolemia Vitamin D deficiency PCOS (polycystic ovarian syndrome) Hypothyroidism Allergy to cats Multiple environmental allergies Surgical History History of removal of ovarian cyst Family History Family History Father Hyperlipidemia Mother Hyperlipidemia Hypertension Diabetes CVD (cardiovascular disease) Social History Social History Household Members: Family Household Members Other:: None Alcohol intake: never Patient Tobacco Use Status: Never used Tobacco Smoked in Last 30 Days: No e-Cigarette/Vaping Use: Never Used Use of substances other than those prescribed or required for medical reasons: No Advance Directives: No Advance Directives Information Provided: No Patient : No Physical Exam ED Vital Signs: Vital Signs - 24 hr 03/08/23 07:48 03/08/23 09:52 Temperature 98.0 F Pulse Rate 100 97 Respiratory Rate 18 16 Blood Pressure 116/74 108/58 L Pulse Oximetry 98 100 Oxygen Delivery Method Room Air Room Air BMI result Body Mass Index 34.9 vss Appearance: Alert.? Oriented X3.? No acute distress.? Head: Normocephalic, atraumatic, no step-offs or deformities Eyes: Pupils equal, round and reactive to light.? Neck: Normal inspection.? Neck supple.? CVS: Normal heart rate and rhythm.? Pulses normal.? Respiratory: No respiratory distress.? Breath sounds normal.? Abdomen: Soft and nontender.? Skin: Skin warm and dry.? Normal skin color.? Normal skin turgor.? Extremities: No lower extremity edema.? No calf ttp. 5/5 strength to bilateral upper and lower extremities Neuro: Oriented X 3.? No motor deficit.? No sensory deficit. CN 2-12 intact Course Reevaluation(s) Reevaluation #1: CBC within normal limits. Chemistry unremarkable. Troponin negative, EKG nonischemic unlikely ACS. Patient's chest x-ray no acute cardiopulmonary disease. No need for repeat COVID test patient's likely still COVID positive. Will discharge home with albuterol, prednisone, benzonatate Perles for cough, Z-Ash. Educated patient on diagnosis and treatment plan, answered all question, patient verbalizes understanding. At this time patient will be discharged home, advised to return with new or worsening symptoms. Educated on worrisome signs and symptoms and when to return. At this time I feel comfortable discharge home. Time: 10:20 Medical Decision Making Medical Decision Making [facility] Narrative: 0950 32 yo F presents w/ URI symptoms X 8 days , was covid + 1 week ago PE- benign This is likely COVID-19 versus viral pneumonia versus viral illness. Unlikely pulmonary embolism patient without significant risk factors unlikely ACS, pneumonia, acute respiratory distress. Plan- labs, ekg, imaging. Differential Diagnosis Differential Diagnoses: The differential diagnosis associated with the presentation includes This is likely COVID-19 versus viral pneumonia versus viral illness. Unlikely pulmonary embolism patient without significant risk factors unlikely ACS, pneumonia, acute respiratory distress. Admission/Observation Consideration of admission/observation: Escalation of care including admission/observation considered Unlikely Lab Data [facility] Lab Attestation statement: I reviewed the patient's lab results. 03/08/23 09:28 03/08/23 09:28 Labs: Lab Results 03/08/23 Range/Units 09:28 WBC 10.4 (4.8-10.8) X10*3/uL RBC 4.63 (4.20-5.50) X10*6/uL Hgb 12.3 (12.0-16.0) g/dl Hct 38.6 (37.0-47.0) % MCV 83.4 (80.0-98.0) fL MCH 26.6 L (27.0-33.0) pg MCHC 31.9 (31.0-35.0) g/dl RDW 18.6 H (11.0-16.0) % Plt Count 460 H (160-400) X10*3/uL MPV 8.5 L (9.4-12.3) fL Immature Gran % (Auto) 0.6 H (0.0-0.4) % Neut % (Auto) 68.8 (45-73) % Lymph % (Auto) 21.4 (20-40) % [place] % (Auto) 5.0 (2-11) % Eos % (Auto) 3.8 (0-4) % Baso % (Auto) 0.4 (0-2) % Lymph # (Auto) 2.2 (1.2-4.9) X10*3/uL [place] # (Auto) 0.5 (0.1-1.2) X10*3/uL Eos # (Auto) 0.4 (0.0-0.4) X10*3/uL Baso # (Auto) 0.0 (0.0-0.2) X10*3/uL Abs Immat Gran (auto) 0.06 H (0.00-0.03) X10*3/uL Absolute Neuts (auto) 7.1 (2.0-8.3) x10*3/uL Absolute Nucleated RBC 0.000 (0.0-0.012) X10*3/uL Nucleated RBC % (auto) 0.0 (0.0-0.2) /100WBC Sodium 138 (135-145) mmol/L Potassium 4.1 (3.3-5.1) mmol/L Chloride 108 (96-108) mmol/L Carbon Dioxide 21 L (22-29) mmol/L Anion Gap 13 (12-20) BUN 5 L (9-16) mg/dL Creatinine 0.79 (0.5-1.4) mg/dL Estim Creat Clear Calc 117.7 Estimated GFR > 60 Random Glucose 88 (60-115) mg/dL Calcium 9.1 D (8.4-10.2) mg/dL Total Bilirubin 0.4 (0.0-1.0) mg/dL AST 22 (5-31) U/L ALT 25 (0-31) U/L Alkaline Phosphatase 93 (39-117) U/L Troponin I High Sens < 2.7 (<3.5-17.0) ng/L Total Protein 7.9 (6.5-8.0) g/dL Albumin 4.4 (3.5-5.0) g/dL Independent Interpretation I performed an independent interpretation of an: EKG (Ventricular rate of 82, CA normal, QRS normal, QT/QTC normal. EKG with no ST elevations or inversions concerning for acute ischemia) and Plain X-Ray (XR/XR chest 2V IMPRESSION: No acute cardiopulmonary disease.) Radiology Impression Discussion of test interpretation with radiology: I have reviewed the radiologist's reading. External Record Review External record reviewed: Inpatient record, Office record, Outpatient record, Prior outpatient labs, Prior outpatient radiology, Primary care record and Outside ED record Prescription Management I considered prescription management with: Antibiotic and Other (Prednisone, albuterol, cough medicine) Chronic Conditions Patient?s care impacted by: Other (Mental health disorders) Discharge Plan Discharge Clinical Impression: Upper respiratory tract infection, COVID-19 Patient Disposition: Home, Self-Care Instructions: Upper Respiratory Infection (DC), COVID-19 (Coronavirus Disease 2019) (ED) Additional Instructions: Take your medications as prescribed. If you were prescribed antibiotics today, it is important that you take your medication to their entirety, do not skip any doses, do not finish them early. Follow-up with your primary care provider this week. Return to the emergency department with new or worsening symptoms. Such as fevers, chills, chest pain, shortness of breath, nausea, vomiting, dizziness, headache, vision changes, lethargy In case of emergency call 911 XR/XR chest 2V IMPRESSION: No acute cardiopulmonary disease. Prescriptions: New albuterol sulfate 90 mcg/actuation aerosol powdr breath activated 2 inh inhalation Q4-6H PRN (Reason: shortness of breath or wheezing) Qty: 1 0RF benzonatate 100 mg capsule 100 mg PO BID PRN (Reason: cough) Qty: 20 0RF azithromycin 250 mg tablet See Rx Instructions .ROUTE .COMPLEX Qty: 6 0RF Rx Instructions: For 250 mg dose pack: take 500 mg today (day 1), then 250 mg for 4 days (days 2-5) prednisone 20 mg tablet 40 mg PO DAILY 5 Days Qty: 10 0RF No Action albuterol sulfate [Ventolin HFA] 90 mcg/actuation HFA aerosol inhaler 2 puff inhalation Q6H PRN (Reason: shortness of breath or wheezing) Qty: 18 1RF cholecalciferol (vitamin D3) 50 mcg (2,000 unit) capsule 50 mcg PO DAILY 30 Days Qty: 30 11RF rosuvastatin 40 mg tablet 40 mg PO DAILY 30 Days Qty: 30 11RF ezetimibe [Zetia] 10 mg tablet 10 mg PO DAILY 30 Days Qty: 30 11RF levothyroxine 75 mcg tablet 75 mcg PO DAILY 30 Days Qty: 30 3RF metoclopramide HCl 10 mg Tablet 10 mg PO DAILY PRN (Reason: Nausea) Repatha SureClick 140 mg/mL pen injector 140 mg subcut Q2W 30 Days Qty: 3 11RF lorazepam 1 mg tablet 1 mg PO BID PRN sumatriptan succinate 50 mg tablet 50 mg PO PRN duloxetine 40 mg capsule,delayed release(DR/EC) 40 mg PO QAM bupropion HCl 450 mg tablet extended release 24 hr 450 mg PO DAILY Referrals: Cody Solis MD [Primary Care Provider] - 2 days
[2023-03-08 09:47] LABS: Alanine Aminotransferase 25 U/L (0-31); Albumin Level 4.4 g/dL (3.5-5.0); Alkaline Phosphatase 93 U/L (39-117); Anion Gap 13 (12-20); Aspartate Amino Transferase 22 U/L (5-31); Bilirubin Total 0.4 mg/dL (0.0-1.0); Blood Urea Nitrogen 5 mg/dL (9-16); Calcium 9.1 mg/dL (8.4-10.2); Carbon Dioxide 21 mmol/L (22-29); Chloride 108 mmol/L (96-108); Creatinine Clr Calc Pharmacy 117.7; Estimated Glomerular Filt Rate > 60; Glucose Random 88 mg/dL (60-115); Potassium 4.1 mmol/L (3.3-5.1); Sodium 138 mmol/L (135-145); Total Protein 7.9 g/dL (6.5-8.0)
[2023-03-08 09:52] VITALS: BP 108/58; PULSE 97; RESP 16; O2SAT 100
--- NOTE | 2023-03-08 09:53 | PC.NURSE ---
vss and up to date at this time. pt comes in today d/t ongoing sx after testing positive for covid last tuesday. pt c/o n/v/fever/chills/cough/sob/poor PO intake for the past 5 days. pt verbalizes not being able to keep anything in her sx. pt currently has productive cough. hx of asthma - has been using albuterol inhaler at home w/ minimal relief. lung sounds clear throughout at this time. no sob/wob noted. pt able to speak in full/clear sentences w/o difficulty. respirations even and unlabored. call zarate placed within reach.
[2023-03-08 09:55] LABS: Troponin-I High Sensitivity < 2.7 ng/L (<3.5-17.0)
== END 2023-03-08 10:43 | disposition home or self-care (01) ==
PROVIDERS: Physician Assistant; Emergency Provider Student in an Organized Health Care Education/Training Program; PCP Internal Medicine
DX: U07.1 COVID-19 (principal); J06.9 Acute upper respiratory infection, unspecified; R05.9 Cough, unspecified
CPT/HCPCS: 36415; 71046; 80053; 84484; 85025; 93005; 99283; 99284

== ENCOUNTER 2023-05-23 03:01 | Emergency (ER) | payer OTHER, SELFPAY ==
[2023-05-23 03:03] VITALS: BP 113/68; PULSE 84; RESP 18; TEMP 36.2; O2SAT 99; BMI 31.7
[2023-05-23] MEDS: Acetaminophen 325 MG TABLET 975 MG PO (03:29)
[2023-05-23 03:47] LABS: Appearance Urine Cloudy; Color Urine Yellow; Glucose Urine UA Negative (Negative); Leukocyte Esterase Urine Moderate (2+) (Negative); Nitrite Urine Negative (Negative); PH 5.5 (5.0-9.0); UMIC TRIGGER UACC YES; Urine Blood Trace (Negative); Urine Ketones Trace mg/dL (Negative); Urine Protein Negative (Neg-Trace)
[2023-05-23 03:49] LABS: Bacteria Urine 4+ (None Seen); UACC Culture Trigger YES; UPreg QC Valid YES; Urine Pregnancy NEGATIVE (NEGATIVE); WBC Urine >50 /HPF (0-5)
[2023-05-23 03:59] LABS: COVID-19 Test Negative (Negative); IDNOW Serial# 08D9AD1C
--- NOTE | 2023-05-23 04:13 | ED_ITS ---
HPI - Headache General Chief Complaint: Headache Stated Complaint: migraine Time Seen by Provider: 05/23/23 03:16 Source: patient Mode of arrival: ambulatory History of Present Illness HPI Narrative: 33-year-old female with known history of migraines states that she had a panic attack earlier in the day and took 1 of her prescribed Xanax but states that it did not help much though she was able to sleep but then noted that she was beginning to develop 1 of her migraines and then at 01:00 states that the headache would not let up but it did present in progress similarly to her prior migraines and is associated with nausea and vomiting. Patient states that she noticed that her migraines have been well controlled and that recently she was started on an MAOI in April and since that time she is noticed that her migraines have started to come back. Related Data Home Medications Medication Instructions Recorded Confirmed metoclopramide HCl 10 mg tablet 10 mg PO DAILY PRN Nausea 06/02/21 11/10/22 lorazepam 1 mg tablet 1 mg PO BID PRN 05/24/22 11/10/22 bupropion HCl 450 mg 24 hr tablet, 450 mg PO DAILY 09/01/22 11/10/22 extended release sumatriptan succinate 50 mg tablet 50 mg PO PRN 09/01/22 11/10/22 duloxetine 40 mg capsule,delayed 40 mg PO QAM 11/10/22 11/10/22 release Previous Rx's Medication Instructions Recorded Ventolin HFA 90 mcg/actuation 2 puff inhalation Q6H PRN 07/13/21 aerosol inhaler (albuterol sulfate) shortness of breath or wheezing #18 grams cholecalciferol (vitamin D3) 50 50 mcg PO DAILY 30 days #30 caps 05/31/22 mcg (2,000 unit) capsule ezetimibe 10 mg tablet (Zetia) 10 mg PO DAILY 30 days #30 tabs 07/29/22 rosuvastatin 40 mg tablet 40 mg PO DAILY 30 days #30 tabs 07/29/22 levothyroxine 75 mcg tablet 75 mcg PO DAILY 30 days #30 tabs 11/10/22 albuterol sulfate 90 mcg/actuation 2 inh inhalation Q4-6H PRN 03/08/23 breath activated powder inhaler shortness of breath or wheezing #1 ea azithromycin 250 mg tablet See Rx Instructions PO .COMPLEX #6 03/08/23 tabs benzonatate 100 mg capsule 100 mg PO BID PRN cough #20 caps 03/08/23 prednisone 20 mg tablet 40 mg (2 x 20 mg) PO DAILY 5 days 03/08/23 #10 tabs evolocumab 140 mg/mL subcutaneous 140 mg subcut Q2W 30 days #3 mL 04/27/23 pen injector (Edyta Alvarado) metoclopramide HCl 5 mg tablet 5 mg PO Q8H PRN nausea and 05/23/23 (Reglan) vomiting #7 tabs Allergies Allergy/AdvReac Type Severity Reaction Status Date / Time pantoprazole Allergy Unknown chest pain Verified 03/08/23 07:52 diphenhydramine Allergy Hives Verified 03/08/23 07:52 [From Benadryl] esomeprazole [From NEXIUM] AdvReac Mild DIARRHEA Verified 03/08/23 07:52 sumatriptan AdvReac Migraine Verified 05/23/23 03:08 birch trees Allergy Unknown Sneezing Uncoded 03/08/23 07:52 oak trees Allergy Unknown nasal Uncoded 03/08/23 07:52 congestion SEASONAL ALLERGIES Allergy Unknown UNKNOWN Uncoded 03/08/23 07:52 Review of Systems Review of Systems: Pertinent positives and negatives as stated in HPI [facility] Past Medical History Source: nursing notes reviewed Onset Date is defined in the Problem List Problems that require an onset date and time if occurred within 24 hrs of arrival to the ED Aortic Dissection and Rupture; Neurologic impairment; Cardiopulmonary Arrest; Endotracheal Intubation; Insertion or Replacement of Mechanical Circulatory Assist Device Medical History Obesity Anemia Psoriasis Asthma Migraine Major depressive disorder, recurrent episode with anxious distress Familial hypercholesterolemia Vitamin D deficiency PCOS (polycystic ovarian syndrome) Hypothyroidism Allergy to cats Multiple environmental allergies Surgical History History of removal of ovarian cyst Family History Family History Father Hyperlipidemia Mother Hyperlipidemia Hypertension Diabetes CVD (cardiovascular disease) Social History Social History Household Members: Family Household Members Other:: None Alcohol intake: never Patient Tobacco Use Status: Never used Tobacco Smoked in Last 30 Days: No e-Cigarette/Vaping Use: Never Used Use of substances other than those prescribed or required for medical reasons: No Advance Directives: No Advance Directives Information Provided: Yes Patient : No Physical Exam Vital Signs: Vital Signs: Last Vital Signs Temp 97.8 F 05/23/23 04:25 Pulse 72 05/23/23 04:25 Resp 12 05/23/23 04:25 BP 107/64 05/23/23 04:25 Pulse Ox 100 05/23/23 04:25 O2 Del Method Room Air 05/23/23 04:25 BMI result Body Mass Index 31.7 VITAL SIGNS: Reviewed. GENERAL: Well developed, well nourished, in no acute distress. HEAD: Normocephalic/atraumatic EYES: PERRLA, EOMI EARS: Ext canals without abnormality NOSE: Nares patent bilateral OROPHARYNX: no oral lesions noted, posterior pharynx clear NECK: Supple, no adenopathy LUNGS: Normal breath sounds. No adventitious sounds or accessory muscle use. SpO2<100> CARDIOVASCULAR: Regular rate and rhythm without noted murmurs ABDOMEN: Soft, non-tender, non-distended with bowel sounds. MUSCULOSKELETAL: No tenderness, deformities, or effusions noted on gross inspection. EXTREMITIES: No cyanosis, clubbing or edema. SKIN: Inspection of the skin reveals no rashes NEUROLOGIC: Alert and oriented x 4. Strength and sensation to light touch were grossly intact x 4, no focal deficits. Medications Administered Discontinued Medications Generic Name Dose Route Start Last Admin Trade Name Freq PRN Reason Stop Dose Admin Acetaminophen 975 mg 05/23/23 03:14 05/23/23 03:29 Acetaminophen 325 Mg Tablet PO 05/23/23 03:15 975 mg ONCE ONE Administration Ibuprofen 400 mg 05/23/23 04:13 05/23/23 04:21 Ibuprofen 400 Mg Tablet PO 05/23/23 04:14 400 mg ONCE ONE Administration Metoclopramide HCl 10 mg 05/23/23 04:13 05/23/23 04:21 Metoclopramide Hcl 10 Mg Tablet PO 05/23/23 04:14 10 mg ONCE ONE Administration Medical Decision Making Medical Decision Making MDM Narrative: 33-year-old female with history and clinical presentation consistent with migraine. Patient received combination acetaminophen/ibuprofen/Reglan after urine test was confirmed to be negative. Viral testing is negative for COVID-19 and urinalysis is a contaminated sample and will not consider treatment empirically at this time but will defer to primary care doctor to follow-up on urine culture. On re-evaluation patient states that nausea has significantly improved and understands that she will be sent home with a low-dose and has been counseled on possible side effects as well as instructions to return to the emergency room should he occur. Differential Diagnosis Differential Diagnoses: The differential diagnosis associated with the presentation includes Please see the discussion above Admission/Observation Consideration of admission/observation: Escalation of care including admission/observation considered Please see the discussion above Lab Data MDM Lab Attestation statement: I reviewed the patient's lab results. Please see the discussion above Labs: Lab Results 05/23/23 Range/Units 03:36 Urine Color Yellow Urine Appearance Cloudy Urine pH 5.5 (5.0-9.0) Ur Specific [place] 1.020 (1.005-1.025) Urine Protein Negative (Neg-Trace) mg/dL Urine Glucose (UA) Negative (Negative) mg/dL Urine Ketones Trace (Negative) mg/dL Urine Blood Trace H (Negative) Urine Nitrite Negative (Negative) Ur Leukocyte Esterase Moderate (2+) H (Negative) Urine RBC 3-5 H (0-2) /HPF Urine WBC >50 H (0-5) /HPF Ur Squamous Epith Cells 11-20 (0-2) /HPF Urine Bacteria 4+ (None Seen) Hyaline Casts 3-5 (0-2) /LPF Urine Test NEGATIVE (NEGATIVE) COVID-19 ([facility]) Negative (Negative) COVID-19 Clin Com See Note Discharge Plan Discharge Clinical Impression: Migraine Patient Disposition: Home, Self-Care Instructions: Migraine Headache (ED) Additional Instructions: 1. Tylenol 1000 mg, orally, every 6 hours as needed for pain control. Do not exceed 4000 mg within 24 hours. 2. Ibuprofen 400 mg, orally with milk or food, every 6 hours as needed for pain control. 3. Please follow-up with Dr. Young to reestablish care and management of your migraines and coordinate discussion with psychiatrist for possible side effects of your MAOI Return to the ER should you experience any abnormal movements as discuss regarding the use of Reglan. Prescriptions: New metoclopramide HCl [Reglan] 5 mg tablet 5 mg PO Q8H PRN (Reason: nausea and vomiting) Qty: 7 0RF No Action albuterol sulfate [Ventolin HFA] 90 mcg/actuation HFA aerosol inhaler 2 puff inhalation Q6H PRN (Reason: shortness of breath or wheezing) Qty: 18 1RF cholecalciferol (vitamin D3) 50 mcg (2,000 unit) capsule 50 mcg PO DAILY 30 Days Qty: 30 11RF rosuvastatin 40 mg tablet 40 mg PO DAILY 30 Days Qty: 30 11RF ezetimibe [Zetia] 10 mg tablet 10 mg PO DAILY 30 Days Qty: 30 11RF levothyroxine 75 mcg tablet 75 mcg PO DAILY 30 Days Qty: 30 3RF Repatha SureClick 140 mg/mL pen injector 140 mg subcut Q2W 30 Days Qty: 3 3RF metoclopramide HCl 10 mg Tablet 10 mg PO DAILY PRN (Reason: Nausea) albuterol sulfate 90 mcg/actuation aerosol powdr breath activated 2 inh inhalation Q4-6H PRN (Reason: shortness of breath or wheezing) Qty: 1 0RF benzonatate 100 mg capsule 100 mg PO BID PRN (Reason: cough) Qty: 20 0RF azithromycin 250 mg tablet See Rx Instructions .ROUTE .COMPLEX Qty: 6 0RF Rx Instructions: For 250 mg dose pack: take 500 mg today (day 1), then 250 mg for 4 days (days 2-5) prednisone 20 mg tablet 40 mg PO DAILY 5 Days Qty: 10 0RF lorazepam 1 mg tablet 1 mg PO BID PRN sumatriptan succinate 50 mg tablet 50 mg PO PRN duloxetine 40 mg capsule,delayed release(DR/EC) 40 mg PO QAM bupropion HCl 450 mg tablet extended release 24 hr 450 mg PO DAILY Referrals: Bimal Young MD [Physician] - Cody Solis MD [Primary Care Provider] -
[2023-05-23] MEDS: Metoclopramide HCl 10 MG TABLET PO (04:21)
[2023-05-23] MEDS: Ibuprofen 400 MG TABLET PO (04:21)
[2023-05-23 04:25] VITALS: BP 107/64; PULSE 72; RESP 12; TEMP 36.6; O2SAT 100
--- NOTE | 2023-05-23 05:22 | PC.NURSE ---
Pt aox4 resting at the bedside. No apparent distress noted. Reports pain is still about the same but the nausea went away. Reports headache 12/09.
[2023-05-23 05:43] VITALS: BP 107/71; PULSE 74; RESP 12; TEMP 36.7; O2SAT 99
== END 2023-05-23 05:46 | disposition home or self-care (01) ==
PROVIDERS: Emergency Provider Student in an Organized Health Care Education/Training Program; PCP Internal Medicine
DX: G43.909 Migraine, unspecified, not intractable, without status migrainosus (principal)
CPT/HCPCS: 81001; 81025; 87086; 87147; 87635; 99283; 99284

== ENCOUNTER 2023-10-15 10:53 | Outpatient (REF) | payer OTHER, SELFPAY ==
[2023-10-15 11:45] LABS: Cholesterol 328 mg/dL (<200); HDL Cholesterol 55 mg/dL (>40); LDL Cholesterol Calculated 245 mg/dL (<100); Triglycerides 140 mg/dL (<150)
[2023-10-15 12:00] LABS: Free T4 (Free Thyroxine) 0.98 ng/dL (0.71-1.85); Vitamin D 25-OH Total 16.4 ng/mL (>30)
== END 2023-10-15 10:54 | disposition home or self-care (01) ==
LOC: HO.LAB 10:53
PROVIDERS: Visit Provider Internal Medicine Endocrinology, Diabetes & Metabolism
DX: E55.9 Vitamin D deficiency, unspecified (principal); E03.9 Hypothyroidism, unspecified; E78.01 Familial hypercholesterolemia
CPT/HCPCS: 36415; 80061; 82306; 84439; 84443

== ENCOUNTER 2023-10-17 08:20 | Outpatient (AMB) | payer OTHER, SELFPAY ==
--- NOTE | 2023-10-17 08:23 | A.OFFVIS_ITS ---
Vital Signs 10/17/23 08:25 Height 5 ft 5 in Weight 164 lb 14.492 oz BMI 27.4 BP 100/70 Blood Pressure Location Rt brachial Position Sitting Pulse 81 Pulse Source Pulse Oximeter Intake Visit Reasons: HDL-lvm Intake Note: Patient presents today for HDL follow up. Patient reports she was taking Mounjaro 7.5 mg from December 2022 to July 2023, states it was effective until she was unable to afford it. Insurance Policy Issue Clerk Required: No Accompanied by: Self / Same As Patient Allergies pantoprazole Allergy (Unknown, Verified 10/17/23 08:27) chest pain diphenhydramine [From Benadryl] Allergy (Verified 10/17/23 08:27) Hives esomeprazole [From NEXIUM] Adverse Reaction (Mild, Verified 10/17/23 08:27) DIARRHEA sumatriptan Adverse Reaction (Verified 10/17/23 08:27) Migraine birch trees Allergy (Unknown, Uncoded 10/17/23 08:27) Sneezing oak trees Allergy (Unknown, Uncoded 10/17/23 08:27) nasal congestion SEASONAL ALLERGIES Allergy (Unknown, Uncoded 10/17/23 08:27) UNKNOWN Medication List - Last Reconciled 10/17/23 by Giuseppe Duval MD albuterol sulfate 90 mcg/actuation 2 inhalations inhalation Q4-6H PRN alprazolam 0.5 mg PO DAILY azithromycin For 250 mg dose pack: take 500 mg today (day 1), then 250 mg for 4 days (days 2-5) benzonatate 100 mg PO BID PRN bupropion HCl XL 450 mg PO DAILY cholecalciferol (vitamin D3) 50 mcg PO DAILY 30 days duloxetine 40 mg PO QAM esketamine (Spravato) 84 mg intranasal DAILY evolocumab (Repatha SureClick) 140 mg subcut Q2W 30 days ezetimibe (Zetia) 10 mg PO DAILY 30 days levothyroxine 75 mcg PO DAILY 30 days metformin 500 mg PO DAILY metoclopramide HCl 10 mg PO DAILY PRN metoclopramide HCl (Reglan) 5 mg PO Q8H PRN rosuvastatin 40 mg PO DAILY 30 days selegiline (Emsam) 1 patch topical DAILY sumatriptan succinate 50 mg PO PRN Ventolin HFA 90 mcg/actuation (albuterol sulfate) 2 puffs inhalation Q6H PRN NS HPI Comments Details: 32 YO Female with PMHx HLD and Hypothyroidism who is seen in F/U for HLD, Hypothyroidism . The patient last saw Dr. Mansfield on 11/10/2022 ?1) Hypothyroidism: ?First diagnosed with Hypothyroidism in April 2014 with labs revealing TSH >100. This occured shortly after her with her twins. TSH was checked during the and was WNL. A few months later she was having significant symptoms of hypothyroidism and labs were repeated revealing TSH >100. She was started on Levothyroxine 100 mcg PO daily. 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 Labs later revealed overreplacement, so levothyroxine was decreased. She remai ns on levothyroxine 75 mcg PO daily now. ? She also reports intermittent swelling in her neck, not currently present. She did have an US head and neck which revealed mildly enlarged but not abnormal appearing cervical lymph nodes. ?Menses are regular. ?Denies using Biotin ?She did have a thyroid US that was read as a multinodular thyroid. Images were independently reviewed and this represents a lonnie gland with no discrete nodules, just pseudonodules. She denies any compressive symptoms currently. ?2) HLD: ?Was diagnosed with HLD at the age of 19. She was on this medication from the age of [age], and this was stopped during . She resumed it briefly in between pregnancies from [id number], but then stopped due to another . She just stopped in January 2018 and shortly after presented to us. ?She did have elevated Apo B levels, and history consistent with familial HLD. She meets this diagnosis based on criteria. She was started on Atorvastatin 40 mg PO daily, but LDL remained significantly elevated at 229. She was changed to Atorvastatin 80 mg PO daily and Zetia 10 mg PO daily at that time. We attempted to get Praluent covered for her, but this was consistently denied by her insurance. ?Repeat lipid panel reveals LDL still elevated >200. She also reports significant myalgias to the point she is unable to sleep at night. ?She does have a significant family history of premature CAD in her mother with her first [place] in her 40's, and also her Grandfather. ?She is not interested in additional pregnancies. She is using abstinence or condoms for contraception. She was referred to Cardiology and was referred for coronary artery calcium scoring, She is currently not taking rosuvastatin 40 mg q.d., ezetimibe 10 mg q.d. and Repatha 140 mg Q weekly ?Thyroid US: ?02/20/2021 Right Thyroid Lobe: 4.0 x 1.4 x 0.9 cm, volume 2.5 mL. Previously 4.5 x 1.5 x 1.2 cm, volume 4.2 mL. Parenchyma: The gland echotexture is heterogeneous. Thyroid vascularity is increased. Left Thyroid Lobe: 4.0 x 1.3 x 1.5 cm, volume 4.1 mL. Previously 4.2 x 1.1 x 1.5 cm, volume 3.6 mL. Parenchyma: The gland echotexture is heterogeneous. Thyroid vascularity is increased. Isthmus: 0.17 cm in maximum AP dimension. Previously 0.3 cm. Comparison of the nodules with prior exam is difficult. Estimated total number of nodules greater than or equal to 1 cm: 0. Warning Coordination Meteorologist nodules versus areas of gland heterogeneity are described as follows: 1.? Location: Right inferior. ?? ? Size: 0.5 x 0.5 x 0.6 cm, volume 0.1 mL. ?? ? Previously: Not seen on the previous study. ?? ? Nodule characteristics: ?? ? Composition: Spongiform (0). ?? ? Echogenicity: Anechoic (0). ?? ? Shape: Not taller than wide (0). ?? ? Margins: Smooth (0). ?? ? Echogenic Foci: None (0). ? ACR TI-RADS total points: 0 ?? ? ACR TI-RADS category: 1 ?? ? 2.? Location: Right inferior. ?? ? Size: 0.7 x 0.5 x 0.5 cm, volume 0.1 mL. ?? ? Previously: 0.8 x 0.5 x 0.5 cm, volume 0.1 mL. ?? ? Nodule characteristics: ?? ? Composition: Spongiform (0). ?? ? Echogenicity: Anechoic (0). ?? ? Shape: Not taller than wide (0). ?? ? Margins: Smooth (0). ?? ? Echogenic Foci: None (0). ? ACR TI-RADS total points: 0 ?? ? ACR TI-RADS category: 1 ? Significant change in size (>/= 20% in 2 dimensions and minimal increase of 2 mm or 50% or greater increase in volume): ?? ? Change in features: ?? ? Change in ACR TI-RADS risk category: 3.? Location: Left mid. ?? ? Size: 0.6 x 0.61 x 0.4 cm, volume 0.1 mL. ?? ? Previously: 0.5 x 0.4 x 0.4 cm, volume 0.04 mL. ?? ? Nodule characteristics: ?? ? Composition: Spongiform (0). ?? ? Echogenicity: Anechoic (0). ?? ? Shape: Not taller than wide (0). ?? ? Margins: Smooth (0). ?? ? Echogenic Foci: None (0). ? ACR TI-RADS total points: 0 ?? ? ACR TI-RADS category: 1 ? Significant change in size (>/= 20% in 2 dimensions and minimal increase of 2 mm or 50% or greater increase in volume): ?? ? Change in features: ?? ? Change in ACR TI-RADS risk category: NODES: See separate soft tissue neck ultrasound performed the same day. US Soft Tissue Head and Neck: 02/20/2021 FINDINGS: THYROID BED: Prior thyroidectomy. No residual thyroid tissue demonstrated in the thyroid bed. No cystic or solid nodules demonstrated in the thyroid bed. RIGHT NECK SOFT TISSUES: Scattered nodes are present bilaterally. The largest node on the right level 2 and demonstrates cortical thickening. Lymph nodes otherwise demonstrate normal architecture with normal fatty hilus, normal cortical thickness, and no cystic change or calcification. No abnormal color flow. The largest nodes are as follows: Level 2: 2.4 x 0.9 x 1.5 cm.? Cortical thickening otherwise normal ras architecture. Level 2:1.4 x 0.5 x 1.9 cm. Normal abdominal architecture. LEFT NECK SOFT TISSUES: Scattered architecturally normal nodes are present. The nodes show normal fatty hilus, normal cortical thickness, and no cystic change or calcification. No abnormal color flow. The largest nodes are as follows: Level 1B: 2.1 x 0.6 x 1.4 cm.? Normal ras architecture. US/US soft tiss head and/or neck IMPRESSION: 1. Bilateral cervical lymphadenopathy. There are 3 enlarged lymph nodes, one of which demonstrates abnormal ras architecture with cortical thickening. ? 2. If clinically indicated further evaluation of the neck soft tissues and nodes may be performed with CT soft tissue neck with intravenous contrast. Labs: Laboratory Tests 05/31/22 07/19/22 07/19/22 09:33 09:53 09:53 Creatinine 0.87 Estimated GFR > 60 LDL Cholesterol Direct 147 H 25-OH Vitamin D Total 11.0 TSH 2.91 Free T4 0.80 Not taking Vitamin D PFSH Medical History Obesity Anemia Psoriasis Asthma Migraine Major depressive disorder, recurrent episode with anxious distress Familial hypercholesterolemia Vitamin D deficiency PCOS (polycystic ovarian syndrome) Hypothyroidism Allergy to cats Multiple environmental allergies Surgical History History of removal of ovarian cyst Family History Father Hyperlipidemia Mother Hyperlipidemia Hypertension Diabetes CVD (cardiovascular disease) Social History Household Members: Family Household Members Other:: None Alcohol intake: never Patient Tobacco Use Status: Never used Tobacco e-Cigarette/Vaping Use: Never Used Physical Exam Const Other: Thyroid gland is normal size weighs about 15 g. There are no thyroid nodules palpable Assessment & Plan Assessment & Plan (1) Hypothyroidism: Code(s): E03.9 - Hypothyroidism, unspecified Category: Medical Plan: Clinically and biochemically euthyroid on levothyroxine 75 mcg. Plan is to continue the current therapy. In terms of the thyroid, patient can follow up with the primary care provider and returned back to endocrinology as needed (2) Familial hypercholesterolemia: Code(s): E78.01 - Familial hypercholesterolemia Category: Medical Plan: Patient has a history of familial hypercholesterolemia and has been treated with maximum dose statin, ezetimibe and PCSK9 inhibitor. She has currently not taking any of the medications Plan is to restart rosuvastatin, ezetimibe and Repatha and recheck lipid profile in 2 months. Went over significance of taking these medications and importance of treating familial hypercholesterolemia to prevent stroke and heart attack (3) Vitamin D deficiency: Code(s): E55.9 - Vitamin D deficiency, unspecified Category: Medical Plan: Currently on 2000 IU of vitamin D3 per day with low 25- vitamin-D levels Plan is to resume 2000 units of vitamin D3 and recheck 25 hydroxy vitamin-D in 3 months (4) PCOS (polycystic ovarian syndrome): Code(s): E28.2 - Polycystic ovarian syndrome Category: Medical Plan: Main complaint is hair loss. Was taking spironolactone with questionable decrease in hair loss. Hair growth is not much of a problem Told patient to follow-up with primary care possibly get a dermatology referral . Also have patient talk to dental assistant about starting an estrogen containing control pill. Orders: Orders Lipid Panel 2 Months E78.01 - Familial hypercholesterolemia Vitamin D 25-OH Total 3 Months E78.01 - Familial hypercholesterolemia Referrals Nutrition/Dietitian Referral E28.2 - Polycystic ovarian syndrome Medications: Refilled evolocumab (Repatha SureClick) 140 mg subcut Q2W 30 days 3 mL 3RF E78.01 - Familial hypercholesterolemia cholecalciferol (vitamin D3) 50 mcg PO DAILY 30 days 30 caps 11RF ezetimibe (Zetia) 10 mg PO DAILY 30 days 30 tabs 11RF E78.01 - Familial hypercholesterolemia Coding Level of Care Code Est Pt Level 3 (36266) Diagnoses Hypothyroidism E03.9 Familial hypercholesterolemia E78.01 Vitamin D deficiency E55.9 PCOS (polycystic ovarian syndrome) E28.2
[2023-10-17 08:25] VITALS: BP 100/70; PULSE 81; BMI 27.4
== END 2023-10-17 09:11 | disposition home or self-care (01) ==
PROVIDERS: PCP Internal Medicine; Visit Provider Internal Medicine Endocrinology, Diabetes & Metabolism
DX: E03.9 Hypothyroidism, unspecified (principal); E78.01 Familial hypercholesterolemia; E55.9 Vitamin D deficiency, unspecified; E28.2 Polycystic ovarian syndrome
CPT/HCPCS: 99213

== ENCOUNTER → 2023-10-17 08:20 | Outpatient (BNVA) | payer OTHER, SELFPAY | PROVIDERS: PCP Internal Medicine; Visit Provider Internal Medicine Endocrinology, Diabetes & Metabolism | DX: E03.9 Hypothyroidism, unspecified (principal); E78.01 Familial hypercholesterolemia; E55.9 Vitamin D deficiency, unspecified; E28.2 Polycystic ovarian syndrome | CPT/HCPCS: 99212 ==

== ENCOUNTER 2024-02-09 09:32 | Outpatient (AMB) | payer OTHER, SELFPAY ==
--- NOTE | 2024-02-09 09:36 | A.OFFVIS_ITS ---
Vital Signs 02/09/24 09:37 Height 5 ft 5 in Weight 179 lb 0.246 oz BMI 29.8 BP 94/64 Blood Pressure Location Lt brachial Position Sitting Pulse 82 Pulse Source Pulse Oximeter Intake Visit Reasons: f/u familial hypercholesterolemia-PT req Intake Note: Patient present today for familial hypercholesterolemia follow up visit. Metal Alloy Scientist Required: No Accompanied by: Self / Same As Patient Allergies pantoprazole Allergy (Unknown, Verified 02/09/24 09:51) chest pain diphenhydramine [From Benadryl] Allergy (Verified 02/09/24 09:51) Hives esomeprazole [From NEXIUM] Adverse Reaction (Mild, Verified 02/09/24 09:51) DIARRHEA sumatriptan Adverse Reaction (Verified 02/09/24 09:51) Migraine birch trees Allergy (Unknown, Uncoded 02/09/24 09:51) Sneezing oak trees Allergy (Unknown, Uncoded 02/09/24 09:51) nasal congestion SEASONAL ALLERGIES Allergy (Unknown, Uncoded 02/09/24 09:51) UNKNOWN Medication List - Last Reconciled 02/09/24 by Giuseppe Duval MD albuterol sulfate 90 mcg/actuation 2 inhalations inhalation Q4-6H PRN alprazolam 0.5 mg PO DAILY azithromycin For 250 mg dose pack: take 500 mg today (day 1), then 250 mg for 4 days (days 2-5) benzonatate 100 mg PO BID PRN bupropion HCl XL 450 mg PO DAILY cholecalciferol (vitamin D3) 50 mcg PO DAILY 30 days duloxetine 40 mg PO QAM esketamine (Spravato) 84 mg intranasal DAILY evolocumab (Repatha SureClick) 140 mg subcut Q2W 30 days ezetimibe (Zetia) 10 mg PO DAILY 30 days levothyroxine 75 mcg PO DAILY 30 days metformin 500 mg PO DAILY 30 days metoclopramide HCl 10 mg PO DAILY PRN metoclopramide HCl (Reglan) 5 mg PO Q8H PRN rosuvastatin 40 mg PO DAILY selegiline (Emsam) 1 patch topical DAILY sumatriptan succinate 50 mg PO PRN Ventolin HFA 90 mcg/actuation (albuterol sulfate) 2 puffs inhalation Q6H PRN NS HPI Comments Details: 33 YO Female with PMHx HLD and Hypothyroidism who is seen in F/U for HLD, Hypothyroidism . ?1) Hypothyroidism: ?First diagnosed with Hypothyroidism in April 2014 with labs revealing TSH >100. This occured shortly after her with her twins. TSH was checked during the and was WNL. A few months later she was having significant symptoms of hypothyroidism and labs were repeated revealing TSH >100. She was started on Levothyroxine 100 mcg PO daily. 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 Labs later revealed overreplacement, so levothyroxine was decreased. She remains on levothyroxine 75 mcg PO daily now. ? She also reports intermittent swelling in her neck, not currently present. She did have an US head and neck which revealed mildly enlarged but not abnormal appearing cervical lymph nodes. ?Menses are regular. ?Denies using Biotin ?She did have a thyroid US that was read as a multinodular thyroid. Images were independently reviewed and this represents a lonnie gland with no discrete nodules, just pseudonodules. She denies any compressive symptoms currently. ?2) HLD: ?Was diagnosed with HLD at the age of 19. She was on this medication from the age of [age], and this was stopped during . She resumed it briefly in between pregnancies from 7129-5645, but then stopped due to another . She just stopped in January 2018 and shortly after presented to us. ?She did have elevated Apo B levels, and history consistent with familial HLD. She meets this diagnosis based on criteria. She was started on Atorvastatin 40 mg PO daily, but LDL remained significantly elevated at 229. She was changed to Atorvastatin 80 mg PO daily and Zetia 10 mg PO daily at that time. We attempted to get Praluent covered for her, but this was consistently denied by her insurance. ?Repeat lipid panel reveals LDL still elevated >200. She also reports significant myalgias to the point she is unable to sleep at night. ?She does have a significant family history of premature CAD in her m other with her first [place] in her 40's, and also her Grandfather. ?She is not interested in additional pregnancies. She is using abstinence or condoms for contraception. She was referred to Cardiology and was referred for coronary artery calcium scoring, She is currently taking rosuvastatin 40 mg q.d., ezetimibe 10 mg q.d. and Repatha 140 mg Q weekly ?Thyroid US: ?02/20/2021 Right Thyroid Lobe: 4.0 x 1.4 x 0.9 cm, volume 2.5 mL. Previously 4.5 x 1.5 x 1.2 cm, volume 4.2 mL. Parenchyma: The gland echotexture is heterogeneous. Thyroid vascularity is increased. Left Thyroid Lobe: 4.0 x 1.3 x 1.5 cm, volume 4.1 mL. Previously 4.2 x 1.1 x 1.5 cm, volume 3.6 mL. Parenchyma: The gland echotexture is heterogeneous. Thyroid vascularity is increased. Isthmus: 0.17 cm in maximum AP dimension. Previously 0.3 cm. Comparison of the nodules with prior exam is difficult. Estimated total number of nodules greater than or equal to 1 cm: 0. Client Finance Analyst nodules versus areas of gland heterogeneity are described as follows: 1.? Location: Right inferior. ?? ? Size: 0.5 x 0.5 x 0.6 cm, volume 0.1 mL. ?? ? Previously: Not seen on the previous study. ?? ? Nodule characteristics: ?? ? Composition: Spongiform (0). ?? ? Echogenicity: Anechoic (0). ?? ? Shape: Not taller than wide (0). ?? ? Margins: Smooth (0). ?? ? Echogenic Foci: None (0). ? ACR TI-RADS total points: 0 ?? ? ACR TI-RADS category: 1 ?? ? 2.? Location: Right inferior. ?? ? Size: 0.7 x 0.5 x 0.5 cm, volume 0.1 mL. ?? ? Previously: 0.8 x 0.5 x 0.5 cm, volume 0.1 mL. ?? ? Nodule characteristics: ?? ? Composition: Spongiform (0). ?? ? Echogenicity: Anechoic (0). ?? ? Shape: Not taller than wide (0). ?? ? Margins: Smooth (0). ?? ? Echogenic Foci: None (0). ? ACR TI-RADS total points: 0 ?? ? ACR TI-RADS category: 1 ? Significant change in size (>/= 20% in 2 dimensions and minimal increase of 2 mm or 50% or greater increase in volume): ?? ? Change in features: ?? ? Change in ACR TI-RADS risk category: 3.? Location: Left mid. ?? ? Size: 0.6 x 0.61 x 0.4 cm, volume 0.1 mL. ?? ? Previously: 0.5 x 0.4 x 0.4 cm, volume 0.04 mL. ?? ? Nodule characteristics: ?? ? Composition: Spongiform (0). ?? ? Echogenicity: Anechoic (0). ?? ? Shape: Not taller than wide (0). ?? ? Margins: Smooth (0). ?? ? Echogenic Foci: None (0). ? ACR TI-RADS total points: 0 ?? ? ACR TI-RADS category: 1 ? Significant change in size (>/= 20% in 2 dimensions and minimal increase of 2 mm or 50% or greater increase in volume): ?? ? Change in features: ?? ? Change in ACR TI-RADS risk category: NODES: See separate soft tissue neck ultrasound performed the same day. US Soft Tissue Head and Neck: 02/20/2021 FINDINGS: THYROID BED: Prior thyroidectomy. No residual thyroid tissue demonstrated in the thyroid bed. No cystic or solid nodules demonstrated in the thyroid bed. RIGHT NECK SOFT TISSUES: Scattered nodes are present bilaterally. The largest node on the right level 2 and demonstrates cortical thickening. Lymph nodes otherwise demonstrate normal architecture with normal fatty hilus, normal cortical thickness, and no cystic change or calcification. No abnormal color flow. The largest nodes are as follows: Level 2: 2.4 x 0.9 x 1.5 cm.? Cortical thickening otherwise normal ras architecture. Level 2:1.4 x 0.5 x 1.9 cm. Normal abdominal architecture. LEFT NECK SOFT TISSUES: Scattered architecturally normal nodes are present. The nodes show normal fatty hilus, normal cortical thickness, and no cystic change or calcification. No abnormal color flow. The largest nodes are as follows: Level 1B: 2.1 x 0.6 x 1.4 cm.? Normal ras architecture. US/US soft tiss head and/or neck IMPRESSION: 1. Bilateral cervical lymphadenopathy. There are 3 enlarged lymph nodes, one of which demonstrates abnormal ras architecture with cortical thickening. ? 2. If clinically indicated further evaluation of the neck soft tissues and nodes may be performed with CT soft tissue neck with intravenous contrast. Labs: Laboratory Tests 05/31/22 07/19/22 07/19/22 09:33 09:53 09:53 Creatinine 0.87 Estimated GFR > 60 LDL Cholesterol Direct 147 H 25-OH Vitamin D Total 11.0 TSH 2.91 Free T4 0.80 taking Vitamin D . Today, she complains of weight gain, fatigue and shortness of breath on exertion. Unfortunately, she is trying to find a new primary care provider [facility] Medical History Obesity Anemia Psoriasis Asthma Migraine Major depressive disorder, recurrent episode with anxious distress Familial hypercholesterolemia Vitamin D deficiency PCOS (polycystic ovarian syndrome) Hypothyroidism Allergy to cats Multiple environmental allergies Surgical History History of removal of ovarian cyst Family History Father Hyperlipidemia Mother Hyperlipidemia Hypertension Diabetes CVD (cardiovascular disease) Social History Household Members: Family Household Members Other:: None Alcohol intake: never Patient Tobacco Use Status: Never used Tobacco e-Cigarette/Vaping Use: Never Used Physical Exam Vital Signs: Last Vital Signs Pulse 82 02/09/24 09:37 BP 94/64 02/09/24 09:37 BMI result Body Mass Index 29.8 Const Other: Thyroid gland is normal size weighs about 15 g. There are no thyroid nodules palpable. There are no cushingoid features. Lungs are clear to auscultation. Heart is S1-S2. Extremity exam reveals the absence of edema Assessment & Plan Assessment & Plan (1) Familial hypercholesterolemia: Code(s): E78.01 - Familial hypercholesterolemia Category: Medical Plan: Patient has a history of familial hypercholesterolemia and has been treated with maximum dose statin, ezetimibe and PCSK9 inhibitor. She has currently on a statin and ezetimibe but has not started Repatha because she is awaiting teaching how to administer Plan is to check a basic metabolic panel, TSH, free T4, 25 hydroxy vitamin-D. I asked the patient to establish care with a primary care provider who could do a further workup for her symptoms. I will check a 24 hour urine for free cortisol and creatinine to rule out Paterson syndrome although doubt this present. Patient also asked for teaching to administer Repatha we will schedule nurse visit to learn how to administer the Repatha. Once she starts the Repatha, recheck lipid profile in 6 weeks. I did tell the patient that she experiences increasing shortness of breath or chest pain, she needs to report to the emergency room (2) Vitamin D deficiency: Code(s): E55.9 - Vitamin D deficiency, unspecified Category: Medical Plan: Currently on 2000 IU of vitamin D3 per day with low 25- vitamin-D levels Plan is to check 25 hydroxy vitamin-D (3) Hypothyroidism: Code(s): E03.9 - Hypothyroidism, unspecified Category: Medical Plan: Currently on 75 mcg levothyroxine. Will recheck TSH and free T4 and adjust levothyroxine Orders: Orders Thyroid Stimulating Hormone 1 Day E03.9 - Hypothyroidism, unspecified Free T4 (Free Thyroxine) 1 Day E03.9 - Hypothyroidism, unspecified Glucose Fasting 1 Day R53.83 - Other fatigue Basic Metabolic Panel 1 Day R53.83 - Other fatigue Coding Level of Care Code Est Pt Level 3 (36087) Diagnoses Familial hypercholesterolemia E78.01 Vitamin D deficiency E55.9 Hypothyroidism E03.9
[2024-02-09 09:37] VITALS: BP 94/64; PULSE 82; BMI 29.8
== END 2024-02-09 10:09 | disposition home or self-care (01) ==
PROVIDERS: PCP Internal Medicine; Visit Provider Internal Medicine Endocrinology, Diabetes & Metabolism
DX: E78.01 Familial hypercholesterolemia (principal); E55.9 Vitamin D deficiency, unspecified; E03.9 Hypothyroidism, unspecified
CPT/HCPCS: 99213

== ENCOUNTER → 2024-02-09 09:32 | Outpatient (BNVA) | payer OTHER, SELFPAY | PROVIDERS: PCP Internal Medicine; Visit Provider Internal Medicine Endocrinology, Diabetes & Metabolism ==

== ENCOUNTER 2024-02-10 09:56 | Outpatient (REF) | payer OTHER, SELFPAY ==
[2024-02-10 11:16] LABS: Anion Gap 10 (12-20); Blood Urea Nitrogen 7 mg/dL (9-16); Calcium 9.3 mg/dL (8.4-10.2); Carbon Dioxide 25 mmol/L (22-29); Chloride 109 mmol/L (96-108); Cholesterol 206 mg/dL (<200); Estimated Glomerular Filt Rate > 60; Glucose Fasting 92 mg/dL (60-99); Glucose Random 93 mg/dL (60-115); HDL Cholesterol 60 mg/dL (>40); LDL Cholesterol Calculated 113 mg/dL (<100); Potassium 3.8 mmol/L (3.3-5.1); Sodium 140 mmol/L (135-145); Triglycerides 166 mg/dL (<150)
[2024-02-10 11:21] LABS: Free T4 (Free Thyroxine) 0.93 ng/dL (0.71-1.85); Thyroid Stimulating Hormone 5.14 uIU/mL (0.32-4.0); Vitamin D 25-OH Total 14.3 ng/mL (>30)
== END 2024-02-10 09:57 | disposition home or self-care (01) ==
LOC: HO.LAB 09:56
PROVIDERS: Visit Provider Internal Medicine Endocrinology, Diabetes & Metabolism
DX: R53.83 Other fatigue (principal); E03.9 Hypothyroidism, unspecified; E78.01 Familial hypercholesterolemia
CPT/HCPCS: 36415; 80048; 80061; 82306; 84439; 84443

== ENCOUNTER 2024-02-25 10:32 | Outpatient (REF) | payer OTHER, SELFPAY ==
[2024-02-25 12:22] LABS: Amphetamine Screen Urine Not Detected (Not Detect); Barbiturates, Urine Not Detected (Not Detect); Benzodiazepines Screen Urine POSITIVE (Not Detect); Buprenorphine Scr Not Detected (Not Detect); Cannabinoid Screen Urine Not Detected (Not Detect); Cocaine Screen Urine Not Detected (Not Detect); Fentanyl, urine Not Detected (Not Detect); Methadone Screen, Urine Not Detected (Not Detect); Opiate Screen Urine Not Detected (Not Detect); Oxycodone Screen Urine Not Detected (Not Detect); Phencyclidine Screen Urine Not Detected (Not Detect)
== END 2024-02-25 10:33 | disposition home or self-care (01) ==
LOC: HO.LAB 10:32
PROVIDERS: Visit Provider Psychiatry & Neurology Psychiatry
DX: F32.2 Major depressive disorder, single episode, severe without psychotic features (principal)
CPT/HCPCS: 80307

== ENCOUNTER 2024-05-04 09:45 | Outpatient (REF) | payer OTHER, SELFPAY ==
--- OUTSIDE RECORDS SUMMARY | 2024-05-04 10:39 | XMS_ITS | Continuity of Care Document ---
Author Organization [facility] Address [address] [place] [address] Insurance Providers Payer Plan Claims Address Claims Phone Policy Number Group Number Relation Employer Guarantor Name Guarantor Guarantor Address Guarantor Phone [employer] [facility] PLAN [address] [address], [place] [address] tel:[phone] Self Kayli Gilmore [address] [place] [address] [place] [address] [facility], [address], [place] [address] tel:[phone] Self Kayli Gilmore [address] [place] [address] [place] [address] [facility] Plan, [facility], In [address] [address], [place] [address] tel:[phone] Ronald Gilmore [address] [place] [address] [place] [address] Problems Unknown Problems Results Test Value / Unit Interpretation Reference Ran Comp. Metabolic Panel ([id number]]?Collected: 04/09/2024 05:40 PM?Specimen Received: 04/09/2024 05:00 AM?Source: [facility] Glucose [798885] 109 mg/dL H 70-99 mg/dL BUN [992027] 9 mg/dL 6-20 mg/dL Creatinine [977957] 0.87 mg/dL 0.57-1.0 0 mg/dL eGFR [094209] 91 mL/min/1.73 >59 mL/min/1 .73 BUN/Creatinine Ratio [657530] 10 9-23 Sodium [433103] 140 mmol/L 134-144 mmol /L Potassium [740197] 4.1 mmol/L 3.5-5.2 m mol/L Chloride [585887] 105 mmol/L 96-106 mmo l/L Carbon Dioxide, Total [506117] 19 mmol/L L 20-29 mmol/L Calcium [118291] 9.7 mg/dL 8.7-10.2 mg /dL Protein, Total [748669] 7.2 g/dL 6.0- 8.5 g/dL Albumin [034121] 4.4 g/dL 3.9-4.9 g/d L Globulin, Total [252828] 2.8 g/dL 1.5 -4.5 g/dL Bilirubin, Total [751967] 0.3 mg/dL 0. 0-1.2 mg/dL Alkaline Phosphatase [875027] 126 IU/L H 44-121 IU/L AST (SGOT) [196314] 14 IU/L 0-40 IU/ L ALT (SGPT) [885339] 11 IU/L 0-32 IU/ L Lipid Panel[[id number]]?Collected: 04/09/2024 05:40 PM?Specimen Received: 04/09/2024 05:00 AM?Source: [facility] Cholesterol, Total [832543] 200 mg/dL H 100-199 mg/dL Triglycerides [473496] 112 mg/dL 0-149 mg/dL HDL Cholesterol [769055] 65 mg/dL >39 mg/dL VLDL Cholesterol Huey [035256] 20 mg/dL 5-40 mg/dL LDL Chol Calc ([facility]) [354523] 115 mg/dL H 0-99 mg/dL Hemoglobin A1c[852522]?Collected: 04/09/2024 05:40 PM?Specimen Received: 04/09/2024 05:00 AM?Source: [facility] Hemoglobin A1c [842694] 5.7 % H 4.8- 5.6 % . Prediabetes: 5.7 - 6.4 Taylor betes: >6.4 Glycemic control for adults with diabetes: 7.0 Allergies, adverse reactions, alerts No known allergies and adverse reactions Medications No administered medications reported Vital Signs No vital signs reported Social History No smoking Hx information available
[2024-05-04 11:37] LABS: Cholesterol 108 mg/dL (<200); Free T4 (Free Thyroxine) 1.15 ng/dL (0.71-1.85); HDL Cholesterol 65 mg/dL (>40); LDL Cholesterol Calculated 8 mg/dL (<100); Thyroid Stimulating Hormone 2.51 uIU/mL (0.32-4.0); Triglycerides 175 mg/dL (<150); Vitamin D 25-OH Total 9.8 ng/mL (>30)
== END 2024-05-04 09:46 | disposition home or self-care (01) ==
LOC: HO.LAB 09:45
PROVIDERS: PCP Internal Medicine; Visit Provider Internal Medicine Endocrinology, Diabetes & Metabolism
DX: E55.9 Vitamin D deficiency, unspecified (principal); E03.9 Hypothyroidism, unspecified; E78.01 Familial hypercholesterolemia
CPT/HCPCS: 36415; 80061; 82306; 84439; 84443

== ENCOUNTER 2024-07-14 08:28 | Outpatient (REF) | payer OTHER, SELFPAY ==
--- OUTSIDE RECORDS SUMMARY | 2024-07-14 08:31 | XMS_ITS | Patient Health Record ---
Author Organization [facility] [[email or web address]] Address [address] [place] [address] Care Team Providers Care Housing Inspectors Name Role Phone CODY SOLIS Primary Care Provider Cody Solis Unavailable [phone] Allergies Allergen (clinical drug ingredient) Drug/Non Drug Allergy documented on EMR Reaction Allergy Type Onset Date Status Cat dander cat (uncoded) shortness of breath Allergy Active Peaches & Kiwi's (uncoded) Mouth Swelling Allergy Active Reason For Referral No Information Medications Medication SIG (Take, Route, Frequency, Duration) Notes Start Date End Date Status Omeprazole 40 MG 1 capsule Orally Once a day for 90 days Active Medrol (Ash) 4 MG as directed Orally 1 for 5 days Not-Taking Metoclopramide HCl 10 MG 1 tablet before meals as needed for nausea Orally Twice a day Active Cipro HC 0.2-1 % 3 drops into affected ear Otic Twice a day for 7 day(s) 09/20/2022 Not-Taking LORazepam 1 MG 1 tablet as needed Orally Twice a day Active Evolocumab 140 MG/ML as directed Subcutaneous every 2 weeks Repatha Not-Taking Semaglutide(0.25 or 0.5MG/DOS) 2 MG/1.5ML as directed Subcutaneous once a week Wegovyi Not-Taking Albuterol Sulfate HFA 108 (90 Base) MCG/ACT 1 puff as needed Inhalation every 4 hrs Active Desitin Daily Defense 13 % as directed Externally daily to abdomen for 30 days Active Cholecalciferol 50 MCG (1999 UT) 1 capsule Orally Once a day Vitamin D 2000 Active SUMAtriptan Succinate 50 MG 1 tablet as needed Orally Twice a day as neeeded Active Azithromycin 500 mg One Oral One a day for 10 days Not-Taking Rosuvastatin Calcium 40 MG 1 tablet Orally Once a day Active Ezetimibe 10 MG 1 tablet Orally Once a day Active metFORMIN HCl 500 MG 1 tablet with meals Orally Once a day for 90 days Active Azithromycin 250 MG 2 tablets on the first day, then 1 tablet daily for 4 days Orally Once a day for 5 days Active Mounjaro 5 MG/0.5ML as directed Subcutaneous Active DULoxetine HCl 40 MG 1 capsule Orally Once a day Active Nystatin-Triamcinolone 397714-3.1 UNIT/GM 1 application Externally Twice a day as needed Active buPROPion HCl 100 MG as directed Orally once a day 450mg daily Active Ibuprofen 600 MG 1 tablet Orally every 6 hrs as needed Active Vitamin D (Ergocalciferol) 08247 UNIT 1 capsule Orally weekly for 90 days Active Levothyroxine Sodium 75 MCG TAKE 1 TABLET BY MOUTH DAILY FOR 30 DAYS for 90 Active Ondansetron HCl 4 MG TAKE 1 TABLET BY MOUTH EVERY DAY FOR 10 DAYS for 10 Active Social History Tobacco Use: Social History Observation Description Date Details (start date - stop date) Never Smoker NA - NA Tobacco Use/Smoking Question Answer Notes Are you a nonsmoker Additional Findings: Tobacco Non-User Aggressive non-smoker Alcohol Screen (Audit-C) Question Answer Notes Did you have a drink containing alcohol in the p ast year? No Points 0 Interpretation Negative Sexual History Question Answer Notes Had sex in the past 12 months (vaginal, oral, or anal)? Yes with Men only Use protection? Yes How often? All of the time Prevention strategies discussed: Condoms Have you ever had a Sexually transmitted disease ? No Last menstrual period 07/20/2022 Section Notes: Marital Hx: Got 12/15/2012 to Audi Patel 34 yrs (today). Through friends . Injured his left shoulder on 06/15/22 . He went to [facility] [facility] . 3children #Getachew 9 yrs good health 3rd grade [employer] # Maxwell 9 yrs 3rd grade [employer] # Noor 7 yr 1st grade [employer] in [facility]. Was in [employer] last year. Kayli decided to give her a chance to be more independent. Usually Audi drops the son to pate and she picks them up at 3.30 pm Wai is picked up by mother in [facility] [place] and Kayli picks up from their house at 4.15 pm. Living in their own house in [place] for 5 years, [place], [address]. 1 car garage . Before that lived in [place] for 18 months Lived with In Laws from Dec 2012 to August 2015. Education: [employer] [facility] 2007. Was going to [employer] in . Moved to [facility] for 2 months Moved to [facility] Mar 2000. [facility] 2012 BA in Economics and Biology Work Hx: Worked for [employer] in [place] from Dec 2011 to September 2012 . Got and left. Used to commute from [employer] 2 hours Mother had heart attack [place] and had [id number] July 2012 Marital Hx: Got 12/15/2012 to Bilant VigilJorge 34 yrs (today). Through friends . Injured his left shoulder on 06/15/22 . He went to [place] [facility] . 3carmenren #Getachew 8 yrs good health 3rd grade [employer] # Maxwell 8 yrs 3rd grade [employer] # Noor 7 yr 1st grade [employer] in [place]. Was in [employer] last year. Kayli decided to give her a chance to be more independent. Usually Audi drops the son to pate and she picks them up at 3.30 pm Wai is picked up by mother in law [facility] and Kayli picks up from their house at 4.15 pm. Living in their own house in [place] for 5 years, [employer] with [place], [address]. 1 car garage . Before that lived in [place] for 18 months Lived with In Laws from Dec 2012 to August 2015. Education: [place] [employer] [facility] 2007. Was going to [employer] in . Moved to [facility] [employer] [facility] for 2 months Moved to [facility] Mar 2000. [facility] 2012 BA in Economics and Biology Work Hx: Worked for [employer] in [place] from Dec 2011 to September 2012 . Got and left. Used to commute from [place] 2 hours Mother had heart attack [place] and had [id number] July 2012 Marital Hx: Got 12/15/2012 to Bilal Jorge 34 yrs (today). Through friends . Injured his left shoulder on 06/15/22 . He went to [place] [facility] . 3children #Getachew 8 yrs good health 3rd grade [employer] # Maxwell 8 yrs 3rd grade [employer] # Noor 7 yr 1st grade [employer] in [place]. Was in [employer] last year. Kayli decided to give her a chance to be more independent. Usually Bilal drops the son to pate and she picks them up at 3.30 pm Wai is picked up by mother in law [place] and Kayli picks up from their house at 4.15 pm. Living in their own house in [place] for 5 years, [place], [address]. 1 car garage . Before that lived in [place] for 18 months Lived with [place] [employer] from Dec 2012 to August 2015. Education: [employer] [facility] 2007. Was going to [employer] in . Moved to [facility] [employer] for 2 months Moved to [facility] Mar 2000. [employer] 2012 BA in Economics and Biology Work Hx: Worked for [employer] in [place] from Dec 2011 to September 2012 . Got and left. Used to commute from [place] 2 hours Mother had heart attack [place] and had [id number] July 2012 Marital Hx: Got 12/15/2012 to Audi Patel 34 yrs (today). Through friends . Injured his left shoulder on 06/15/22 . He went to [place] [facility] . 3children #Getachew 8 yrs good health 3rd grade [employer] # Maxwell 8 yrs 3rd grade [employer] # Noor 7 yr 1st grade [employer] in [facility]. Was in [employer] last year. Kayli decided to give her a chance to be more independent. Usually Bilal drops the son to pate and she picks them up at 3.30 pm Wai is picked up by mother in law [place] and Kayli picks up from their house at 4.15 pm. Living in their own house in [place] for 5 years, [place], [address]. 1 car garage . Before that lived in [place] for 18 months Lived with [place] [employer] from Dec 2012 to August 2015. Education: [employer] [facility] 2007. Was going to [employer] in . Moved to [facility] [employer] for 2 months Moved to [facility] Mar 2000. [employer] 2012 BA in Economics and Biology Work Hx: Worked for [employer] in [place] from Dec 2011 to September 2012 . Got and left. Used to commute from [employer] 2 hours Mother had heart attack [place] and had [id number] July 2012 Marital Hx: Got 12/15/2012 to Audi Patel 34 yrs (today). Through friends . Injured his left shoulder on 06/15/22 . He went to [place] [facility] . 3children #Getachew 8 yrs good health 3rd grade [employer] # Maxwell 8 yrs 3rd grade [employer] # Noor 7 yr 1st grade [employer] in [place]. Was in [employer] last year. Kayli decided to give her a chance to be more independent. Usually Audi drops the son to pate and she picks them up at 3.30 pm Wai is picked up by mother in law [place] and Kayli picks up from their house at 4.15 pm. Living in their own house in [place] for 5 years, [place], [address]. 1 car garage . Before that lived in [place] for 18 months Lived with [place] [employer] from Dec 2012 to August 2015. Education: [employer] [facility] 2007. Was going to [employer] in . Moved to [facility] [employer] for 2 months Moved to [facility] Mar 2000. [facility] 2011 BA in Economics and Biology Work Hx: Worked for [employer] in [place] from Dec 2011 to September 2012 . Got and left. Used to commute from [employer] 2 hours Mother had heart attack [place] and had [id number] July 2012 Problems Problem Type SNOMED Code ICD Code Onset Dates Problem Status W/U Status Risk Notes Problem Polycystic ovary syndrome (disorder) (269470741) Polycystic ovarian syndrome (E28.2) Active confirmed Problem Hypothyroidism (95014552) Hypothyroidism (E03.9) Active confirmed Diagnosed after giving to her twins Problem 6573258 Psoriasis (L40.9) Active confirmed Problem Generalized anxiety disorder (49958784) CHARO (generalized anxiety disorder) (F41.1) Active confirmed Problem 708328221 Rosacea (L71.9) Active confirmed Problem 40465176 Vitamin D deficiency (E55.9) Active confirmed 12/01/22 Will give Vitamin D 50,000 once a week for 3 months . Then 5000 units daily Problem Bronchial asthma (126312308) Bronchial asthma (J45.909) Active confirmed Problem Migraine (03078776) Migraine (G43.909) Active confirmed Saw Dr Lorenzo Young He put her partial in patient psych when she had a panic attack and suicidal ideation in his office Problem 867298653 Iron deficiency anemia due to chronic blood loss (D50.0) Active confirmed 12/01/22 Was told to take iron by her PCP Clarice 5 years ago. Couldnt tolerate it as it made her more constipated May need iron infusion Problem Diabetes mellitus without complication (570389354) Diabetes (E11.9) Active confirmed On wego vyi . Has elevated FBS . Problem 77240744 Bronchitis (J40) Active confirmed 09/22/22 Will give Azith and Medrol Problem 60317959 Constipation by outlet dysfunction (K59.02) Active confirmed 11/03/22 Never had Colonoscopy or saw a specialist Goes ever7-14 days . Will refer to Colorectal surgeon at [facility] Problem 932958088 Chronic constipation (K59.09) Active confirmed Problem 821514533 Psoriatic arthritis (L40.50) Active confirmed Problem Obesity (776652311) Obesity (BMI 30.0-34.9) (E66.9) Active confirmed was using PelThe ADEXn Bike and weigh came down to 160 lbs last December 2021 Now went up to 200 lbs Wegovia bought for $900 for a month Noticed no difference Problem 47976099 Tinea (B35.9) Active confirmed 11/03/22 States she doesnt walk when she is hot as it makes her sweat and she gets a rash on her mid abdomen and it is embarrassing for her. Will give her Cotrimazole cream and told to use desitin powder and Gold balm Powder OTC Problem Recurrent depression (830919349) Recurrent depression (F33.9) Active confirmed Was taking Cymbalta 30 mg and chief psychology Andra increased it to 60 mg and sertraline was decreased and stopped , She felt it was helping but noticed she noticed her rosacea was acting up it was bumpy and itchy . Noticed she had swellings of her hand and feet in the morning Hasbeen happening for a few stops. She stopped the cymbalta for 5 days and facial rash resolved Now restarted it . Problem 35140638 Lower abdominal pain (R10.30) Active confirmed Problem Familial hypercholesterolem ia (813155759) Familial hypercholesterol emia (E78.01) Active confirmed mother had multiple MIs, mild CVA and CABGx4 at age 45 yr Problem Obsessive-compulsi ve disorder (499074543) OCD (obsessive compulsive disorder) (F42.9) Active confirmed Problem 34711769 Drug-induced constipation (K59.03) Active confirmed Problem 382986264 Acute bacterial conjunctivitis of both eyes (H10.33) Active confirmed 09/20/22 Sent Cipro eye drops 0.3 % to [facility] in [place] Problem 760878188 Menorrhagia with regular cycle (N92.0) Active confirmed 12/01/22 Doesnt have a Gynae Problem 224022553906 Somnolence, daytime (R40.0) Active confirmed 12/01/22 Will ge sleep study Problem 28282495 Loud snoring (R06.83) Active confirmed 12/01/22 Will send for Sleep Study Problem 89158563 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 Using Spiriva abd Brioellipta bid and a rescue inhaler Problem 765300968 Increased platelet count (R79.89) Active confirmed 12/01/22 Count 510 Plan Of Treatment Pending Test Test Name Order Date Vitamin B12 08/04/2022 Urinalysis, Complete 08/04/2022 TSH+Free T4 08/04/2022 Lipid Panel 08/04/2022 CBC 08/04/2022 MICROALB/CREAT RATIO, RANDOM 08/04/2022 VITAMIN D, 25-HYDROXY 08/04/2022 CT Abdomen Pelvis WO Cont 08/26/2022 COMPREHENSIVE METABOLIC PANEL 08/04/2022 IRON AND TIBC 08/04/2022 Insurance Providers Payer Name Payer Address Payer Phone Subscriber Number Group Number Insured Name Patient Relationship to Insured Coverage Start Date Coverage End Date [facility] Plan, In [address] [address] [place] [address] [id number] Kayli Gilmore Self - patient is the insured [place] s [address] [place] [address] [phone] [id number] Kayli Gilmore Self - patient is the insured Medical (General) History Medical History History ICD Code ; CovidPfizer 08/14/20, 1; Hep A & Meningococcal 06/28/18; Tdap 11/13/2015, Flu 2012, 2013 Familial Hypercholestrelimia Recurrent Depression Obsessive compulsive Disorder Generalized Anxiety Disorder Hypothyroidism Polycystic Ovarian Syndrome Bronchial asthma adult onset. Eosinophil ic Recurrent Migraine headaches with aura Pre diabetes Has elevated FB S . Taking Wegovyi as Ozempic was denied by her insurance Pays out of pocket Obesity Psoriatic Arhritis Dx in 201 5 by a [employer] Program[employer] and had labs . Treatment was aborted as he became . Surgical History Surgery Date(Month/Year) Laposcopy: PATCH SANDER 2010 3 [place] Teeth Removed 05/05/22 Hospitalization History Reason Date(Month/Year) Pneumonia 2015
--- OUTSIDE RECORDS SUMMARY | 2024-07-14 08:31 | XMS_ITS ---
Author Organization [facility] Address [address] [facility] [address] [place] [address] Care Team Providers Care Database Engineer Name Role Phone CODY OCASIO Primary Care Provider Cody Ocasio Unavailable [phone] Medications Medication SIG (Take, Route, Frequency, Duration) Notes Start Date End Date Status Semaglutide(0.25 or 0.5MG/DOS) 2 MG/1.5ML as directed Subcutaneous once a week Wehaydenvaurora Not-Taking metFORMIN HCl 500 MG 1 tablet with meals Orally Once a day for 90 days Active Azithromycin 250 MG 2 tablets on the first day, then 1 tablet daily for 4 days Orally Once a day for 5 days Active Omeprazole 40 MG 1 capsule Orally Once a day for 10 days Active Ondansetron HCl 4 MG 1 tablet Orally Once a day for 10 days Active Medrol (Ash) 4 MG as directed Orally 1 for 5 days Not-Taking Cipro HC 0.2-1 % 3 drops into affected ear Otic Twice a day for 7 day(s) 09/20/2022 Not-Taking Evolocumab 140 MG/ML as directed Subcutaneous every 2 weeks Repatha Not-Taking Vitamin D (Ergocalciferol) 95190 UNIT 1 capsule Orally weekly for 90 days 12/01/2022 11/26/2023 Active Azithromycin 500 mg One Oral One a day for 10 days Not-Taking Desitin Daily Defense 13 % as directed Externally daily to abdomen for 30 days Active Ezetimibe 10 MG 1 tablet Orally Once a day Active DULoxetine HCl 40 MG 1 capsule Orally Once a day Active buPROPion HCl 100 MG as directed Orally once a day 450mg daily Active Vitamin D (Ergocalciferol) 99356 UNIT 1 capsule Orally weekly for 90 days Active Metoclopramide HCl 10 MG 1 tablet before meals as needed for nausea Orally Twice a day Active LORazepam 1 MG 1 tablet as needed Orally Twice a day Active Levothyroxine Sodium 88 MCG 1 tablet Orally Once a day Active SUMAtriptan Succinate 50 MG 1 tablet as needed Orally Twice a day as neeeded Active Rosuvastatin Calcium 40 MG 1 tablet Orally Once a day Active Albuterol Sulfate HFA 108 (90 Base) MCG/ACT 1 puff as needed Inhalation every 4 hrs Active Cholecalciferol 50 MCG (2000 UT) 1 capsule Orally Once a day Vitamin D 1999 Active Mounjaro 5 MG/0.5ML as directed Subcutaneous Active Nystatin-Triamcinolone 832731-1.1 UNIT/GM 1 application Externally Twice a day as needed Active Ibuprofen 600 MG 1 tablet Orally every 6 hrs as needed Active Encounters Encounter Location Date Provider Diagnosis [address] [place] [address] 03/04/2023 CODY OCASIO COVID U07.1 Assessments Encounter Date Diagnosis (ICD Code) Assessment Notes Treatment Notes Treatment Clinical Notes Section Notes 03/04/2023 COVID (ICD-10 - U07.1) Plan Of Treatment Medication Medication Name Sig Start Date Stop Date Notes Azithromycin 250 MG 2 tablets on the fir st day, then 1 tablet daily for 4 days Orally Once a day for 5 days Omeprazole 40 MG 1 capsule Orally Onc e a day for 10 days Ondansetron HCl 4 MG 1 tablet Orally Onc e a day for 10 days Progress Notes * Kayli GILMOREDOB:1990 (32 yo F)Acc No.[id number]:03/04/2023 Patient:?Kayli Gilmore :1990???Age:32 Y???Sex:Female Address:[address] [place] [address], [address] * Refills? Start Azithromycin Tablet, 250 MG, Orally, 6, 2 tablets on the first day, then 1 tablet daily for 4 days, Once a day, 5 days, Refills=1 Start Omeprazole Capsule Delayed Release, 40 MG, Orally, 10 Capsule, 1 capsule, Once a day, 10 days, Refills=2 Start Ondansetron HCl Tablet, 4 MG, Orally, 10 Tablet, 1 tablet, Once a day, 10 days Subjective: * Chief Complaints: * ??? * Medical History:? * Surgical History:? * Hospitalization/Major Diagno stic Procedure:? * Medications:?TakingMounjaro 5 MG/0.5ML Solution Pen-injector as directed Subcutaneous Nystatin-Triamcinolone 590850-5.1 UNIT/GM Cream 1 application Externally Twice a day as neededIbuprofen 600 MG Tablet 1 tablet Orally every 6 hrs as neededAlbuterol Sulfate HFA 108 (90 Base) MCG/ACT Aerosol Solution 1 puff as needed Inhalation every 4 hrsCholecalciferol 50 MCG (1999 UT) Capsule 1 capsule Orally Once a day, Notes: Vitamin D 2000SUMAtriptan Succinate 50 MG Tablet 1 tablet as needed Orally Twice a day as neeededRosuvastatin Calcium 40 MG Tablet 1 tablet Orally Once a dayMetoclopramide HCl 10 MG Tablet 1 tablet before meals as needed for nausea Orally Twice a dayLORazepam 1 MG Tablet 1 tablet as needed Orally Twice a dayLevothyroxine Sodium 88 MCG Capsule 1 tablet Orally Once a dayEzetimibe 10 MG Tablet 1 tablet Orally Once a dayDULoxetine HCl 40 MG Capsule Delayed Release Particles 1 capsule Orally Once a daybuPROPion HCl 100 MG Tablet as directed Orally once a day, Notes: 450mg dailyVitamin D (Ergocalciferol) 34749 UNIT Capsule 1 capsule Orally weeklyDesitin Daily Defense 13 % Cream as directed Externally daily to abdomenVitamin D (Ergocalciferol) 26410 UNIT Capsule 1 capsule Orally weekly, stop date 11/26/2023metFORMIN HCl 500 MG Tablet 1 tablet with meals Orally Once a dayTaking Mounjaro 5 MG/0.5ML Solution Pen-injector as directed Subcutaneous Taking Nystatin-Triamcinolone 687001-7.1 UNIT/GM Cream 1 application Externally Twice a day as neededTaking Ibuprofen 600 MG Tablet 1 tablet Orally every 6 hrs as neededTaking Albuterol Sulfate HFA 108 (90 Base) MCG/ACT Aerosol Solution 1 puff as needed Inhalation every 4 hrsTaking Cholecalciferol 50 MCG (1999 UT) Capsule 1 capsule Orally Once a day, Notes: Vitamin D 2000Taking SUMAtriptan Succinate 50 MG Tablet 1 tablet as needed Orally Twice a day as neeededTaking Rosuvastatin Calcium 40 MG Tablet 1 tablet Orally Once a dayTaking Metoclopramide HCl 10 MG Tablet 1 tablet before meals as needed for nausea Orally Twice a dayTaking LORazepam 1 MG Tablet 1 tablet as needed Orally Twice a dayTaking Levothyroxine Sodium 88 MCG Capsule 1 tablet Orally Once a dayTaking Ezetimibe 10 MG Tablet 1 tablet Orally Once a dayTaking DULoxetine HCl 40 MG Capsule Delayed Release Particles 1 capsule Orally Once a dayTaking buPROPion HCl 100 MG Tablet as directed Orally once a day, Notes: 450mg dailyTaking Vitamin D (Ergocalciferol) 53777 UNIT Capsule 1 capsule Orally weeklyTaking Desitin Daily Defense 13 % Cream as directed Externally daily to abdomenTaking Vitamin D (Ergocalciferol) 80464 UNIT Capsule 1 capsule Orally weekly, stop date 11/26/2023Taking metFORMIN HCl 500 MG Tablet 1 tablet with meals Orally Once a dayNot-TakingAzithromycin 500 mg One Oral One a dayMedrol (Ash) 4 MG Tablet as directed Orally 1Cipro HC 0.2-1 % Suspension 3 drops into affected ear Otic Twice a dayEvolocumab 140 MG/ML Solution Prefilled Syringe as directed Subcutaneous every 2 weeks, Notes: RepathaSemaglutide(0.25 or 0.5MG/DOS) 2 MG/1.5ML Solution Pen- injector as directed Subcutaneous once a week, Notes: WegovyiNot-Taking Azithromycin 500 mg One Oral One a dayNot-Taking Medrol (Ash) 4 MG Tablet as directed Orally 1Not- Taking Cipro HC 0.2-1 % Suspension 3 drops into affected ear Otic Twice a dayNot-Taking Evolocumab 140 MG/ML Solution Prefilled Syringe as directed Subcutaneous every 2 weeks, Notes: RepathaNot-Taking Semaglutide(0.25 or 0.5MG/DOS) 2 MG/1.5ML Solution Pen-injector as directed Subcutaneous once a week, Notes: Socorro Objective: Assessment: * Assessment: 1.?COVID - U07.1 (Primary)? Plan: * Treatment: * Procedure Codes:? * true * Date:? Generated for Niyah rolle/Camelia/Ruperto on:?07/14/2024 08:31 AM EDT
--- OUTSIDE RECORDS SUMMARY | 2024-07-14 08:31 | XMS_ITS ---
Author Organization [facility] Address [address] [facility] [address] [place] [address] Care Team Providers Care Ferry Operator Name Role Phone CODY SOLIS Primary Care Provider Cody Solis Unavailable [phone] REASON FOR VISIT 3 Month Follow-Up: Encounters Encounter Location Date Provider Diagnosis [facility] [address] [facility] [address] [place] [address] 04/13/2023 CODY SOLIS Plan Of Treatment No Information Progress Notes * Kayli GILMOREDOB:1990 (34 yo F)Acc No.[id number]:04/13/2023 Progress Notes Patient:?Kayli GILMORE Provider:?Cody Solis MD :1990???Age:32 Y???Sex:Female D ate:04/13/2023 Address:[address] [place] [address] [id number] Subjective: * Chief Complaints: * ???1. 3 Month Follow-Up:. * Medical History:? Objective: * Vitals:? Assessment: Plan: * Treatment: * Billing Information: * Visit Code:? * Procedure Codes:? * Electronic signature of SHYAM SOLIS MD on 07/14/2024 at 08:31 AM EDT Sign off status: Pending * Provider:?Cody Solis MD Date:?2022 Generated for Ramyi ng/Fagloriag/eTransmitting on:?07/14/2024 08:31 AM EDT
--- OUTSIDE RECORDS SUMMARY | 2024-07-14 08:31 | XMS_ITS | Continuity of Care Document ---
Author Organization [facility] Address [address] [facility] [address] [place] [address] Insurance Providers Payer Plan Claims Address Claims Phone Policy Number Group Number Relation Employer Guarantor Name Guarantor Guarantor Address Guarantor Phone [employer] [address] [address], [place] [address] tel:[phone] [id number] [phone] Self Kayli Gilmore [address] [place] [address] [place] [address] [facility], [address], [place] [address] tel:[phone] Self Kayli Gilmore [address] [place] [address] [place] [address] [facility] In [address] [address] [address] tel:[phone] Ronald Gilmore [address] [place] [address] [place] [address] Problems Unknown Problems Results Test Value / Unit Interpretation Reference Ran Comp. Metabolic Panel (14)[[id number]]?Collected: 04/09/2024 05:40 PM?Specimen Received: 04/09/2024 05:00 AM?Source: [facility] Glucose [879335] 109 mg/dL H 70-99 mg/dL BUN [155941] 9 mg/dL 6-20 mg/dL Creatinine [021107] 0.87 mg/dL 0.57-1.0 0 mg/dL eGFR [166991] 91 mL/min/1.73 >59 mL/min/1 .73 BUN/Creatinine Ratio [587893] 10 9-23 Sodium [042398] 140 mmol/L 134-144 mmol /L Potassium [133514] 4.1 mmol/L 3.5-5.2 m mol/L Chloride [758330] 105 mmol/L 96-106 mmo l/L Carbon Dioxide, Total [053252] 19 mmol/L L 20-29 mmol/L Calcium [380717] 9.7 mg/dL 8.7-10.2 mg /dL Protein, Total [408255] 7.2 g/dL 6.0- 8.5 g/dL Albumin [036382] 4.4 g/dL 3.9-4.9 g/d L Globulin, Total [633300] 2.8 g/dL 1.5 -4.5 g/dL Bilirubin, Total [512748] 0.3 mg/dL 0. 0-1.2 mg/dL Alkaline Phosphatase [152838] 126 IU/L H 44-121 IU/L AST (SGOT) [865406] 14 IU/L 0-40 IU/ L ALT (SGPT) [994075] 11 IU/L 0-32 IU/ L Lipid Panel[[id number]]?Collected: 04/09/2024 05:40 PM?Specimen Received: 04/09/2024 05:00 AM?Source: [facility] Cholesterol, Total [311248] 200 mg/dL H 100-199 mg/dL Triglycerides [364795] 112 mg/dL 0-149 mg/dL HDL Cholesterol [994799] 65 mg/dL >39 mg/dL VLDL Cholesterol Huey [584067] 20 mg/dL 5-40 mg/dL LDL Chol Calc ([facility]) [563703] 115 mg/dL H 0-99 mg/dL Hemoglobin A1c[568548]?Collected: 04/09/2024 05:40 PM?Specimen Received: 04/09/2024 05:00 AM?Source: [facility] Hemoglobin A1c [186385] 5.7 % H 4.8- 5.6 % . Prediabetes: 5.7 - 6.4 Di abetes: >6.4 Glycemic control for adults with diabetes: 7.0 Allergies, adverse reactions, alerts No known allergies and adverse reactions Medications No administered medications reported Vital Signs No vital signs reported Social History No smoking Hx information available
--- OUTSIDE RECORDS SUMMARY | 2024-07-14 08:31 | XMS_ITS ---
Author Organization [facility] Address [address] [facility] [address] [place] [address] Care Team Providers Care Lawnmower Mechanic Name Role Phone CODY SOLIS Primary Care Provider [phone] Cody Solis Unavailable [phone] REASON FOR VISIT refill Medications Medication SIG (Take, Route, Fr equency, Duration) Notes Start Date End Date Status Omeprazole 40 MG 1 capsule Orally Onc e a day for 90 days Active Encounters Encounter Location Date Provider Diagnosis [address] [place] [address] 04/04/2023 CODY SOLIS COVID U07.1 Assessments Encounter Date Diagnosis (ICD Code) Assessment Notes Treatment Notes Treatment Clinical Notes Section Notes 04/04/2023 COVID (ICD-10 - U07.1) Plan Of Treatment Medication Medication Name Sig Start Date Stop Date Notes Omeprazole 40 MG 1 capsule Orally Once a day for 90 days Progress Notes * Kayli GILMOREDOB:1990 (32 yo F)Acc No.[id number]:04/04/2023 Patient:?Kayli Gilmore :1990???Age:32 Y???Sex:Female [address] [place] [place] [address] [place], [address] * Refills? Refill Omeprazole Capsule Delayed Release, 40 MG, Orally, 90, 1 capsule, Once a day, 90 days, Refills=4 * true * Date:? Generated for Ramyi aquilino/Stevieg/eTransmitting on:?07/14/2024 08:31 AM EDT
--- OUTSIDE RECORDS SUMMARY | 2024-07-14 08:32 | XMS_ITS ---
Author Name [facility] Organization Unknown Care Team Organization Name Specialty Phone Email Start Date End Da [facility] JOAN STEWART Primary Care 12/15/20212021
--- OUTSIDE RECORDS SUMMARY | 2024-07-14 08:32 | XMS_ITS | Clinical Summary ---
Author Organization [facility] Address [address] [place] [address] Care Team Providers Care Luggage Attendant Name Role Phone Cody Solis MD Primary Care Provider [phone] Allergies Active Allergy Reactions Criticality Noted Date Comments Diphenhydramine 01/07/2023 Medications Medication Sig Dispensed Refills Start Date End Date Status levothyroxine (SYNTHROID) tablet 75 mcg Take 1 tablet (75 mcg total) by mouth every morning on an empty stomach. 0 Active buPROPion (WELLBUTRIN XL) 300 MG 24 hr tablet Take 450 mg by mouth daily. 0 Active DULoxetine HCl 40 MG CSDR Take by mouth. 0 Active rosuvastatin (CRESTOR) tablet 40 mg Take 1 tablet (40 mg total) by mouth daily. 0 Active ezetimibe (ZETIA) tablet 10 mg Take 1 tablet (10 mg total) by mouth daily. 0 Active cetirizine (ZyrTEC) 10 MG tablet Take 1 tablet (10 mg total) by mouth daily. 0 Active DULoxetine (CYMBALTA) DR capsule 30 mg 0 02/02/2023 Active vortioxetine (Trintellix) 10 MG TABS tablet Take 1 tablet (10 mg total) by mouth daily. 1/2 tab x 1 week, then 1 tab daily 0 Active Active Problems Problem Noted Date Diagnosed Date Iron deficiency anemia due to chronic blood loss 01/21/2023 Social History Tobacco Use Types Packs/Day Years Used Date Smoking Tobacco: Never Smokeless Tobacco: Never Tobacco Cessation:Counseling Given: Not Answered Alcohol Use Standard Drinks/Week Comments Never 0 (1 standard drink = 0.6 oz pur e alcohol) Sex and Gender Information Value Date Recorded Sex Assigned at Female 12/02/2022 12:20 PM EDT Gender Identity Not on file Sexual Orientation Not on file Job Start Date Occupation Industry Not on file Not on file Not on file Last Filed Vital Signs Vital Sign Reading Time Taken Comments Blood Pressure 116/68 02/14/2023 8:20 AM EDT Pulse 96 02/14/2023 8:20 AM EDT Temperature 35.9 ??C (96.7 ??F) 02/14/2023 8:20 AM ED T Respiratory Rate 18 02/14/2023 8:20 AM EDT Oxygen Saturation 100% 02/14/2023 8:20 AM EDT ROOM AIR Inhaled Oxygen Concentration - - Weight 96.9 kg (213 lb 10 oz) 02/07/2023 8:13 AM EDT Height - - Body Mass Index - - Plan of Treatment Health Maintenance Due Date Last Done Comments Hepatitis B Vaccines (1 of 3 - 3-dose series) 1990 Hepatitis C Screening 1990 COVID-19 Vaccine (#1) 1991 Depression Screening 2003 Preventative Health Evaluation 2009 DTap / Tdap / Td (1 - Tdap) 2010 Cervical Cancer Screening (P ap Smear) 2012 Influenza Vaccine (#1) 2024 Pneumococcal Vaccine Aged Out No long er eligible based on patient's age to complete this topic RSV Ped < 20 months Aged Out No longe r eligible based on patient's age to complete this topic Care Teams Luggage Attendant Relationship Specialty Start Date End Date Cody Solis MD PCP - General Internal Medicine 12/02/22
--- OUTSIDE RECORDS SUMMARY | 2024-07-14 08:32 | XMS_ITS | Clinical Summary ---
Author Organization [facility] Address [address] [place] [address] Care Team Providers Care Recovery Unit Operator Name Role Phone Margaret Hillman MD Primary Care Provider Social History Tobacco Use Types Packs/Day Years Used Date Smoking Tobacco: Never Assessed Sex and Gender Information Value Date Recorded Sex Assigned at Not on file Gender Identity Not on file Sexual Orientation Not on file Plan of Treatment Health Maintenance Due Date Last Done Comments Hepatitis C Virus Screening 1990 HIV Screening 2004 DTaP/Tdap/Td Vaccines (1 - Tdap) 2010 Hepatitis B Vaccines (1 of 3 - 19+ 3-dose series) 2010 Pap Smear (Ages 21-65) 2012 Influenza Vaccine 12/01/2023 COVID-19 Vaccine ( - 2023-2 5 season) 2024 HPV Vaccines Aged Out No longer eligi ble based on patient's age to complete this topic Pneumococcal Vaccine: Pediat nikki (0-5 Years) and At-Risk Patients (6 to 49 Years) Aged Out No longer eligible b ased on patient's age to complete this topic Care Teams Recovery Unit Operator Relationship Specialty Start Date End Date Margaret Hillman MD [address] [place] [address] [phone] PCP - General Internal Medicine 08/19/21
[2024-07-14 10:32] LABS: Cholesterol 140 mg/dL (<200); HDL Cholesterol 53 mg/dL (>40); LDL Cholesterol Calculated 66 mg/dL (<100); Triglycerides 106 mg/dL (<150)
[2024-07-14 10:45] LABS: Vitamin D 25-OH Total 10.8 ng/mL (>30)
== END 2024-07-14 08:29 | disposition home or self-care (01) ==
LOC: HO.LAB 08:28
PROVIDERS: Visit Provider Internal Medicine Endocrinology, Diabetes & Metabolism
DX: E78.01 Familial hypercholesterolemia (principal); E55.9 Vitamin D deficiency, unspecified
CPT/HCPCS: 36415; 80061; 82306

== ENCOUNTER 2024-08-23 13:06 | Outpatient (AMB) | payer OTHER, SELFPAY ==
[2024-08-23 13:08] VITALS: BP 100/70; PULSE 108; O2SAT 100; BMI 28.2
--- NOTE | 2024-08-23 13:08 | A.OFFVIS_ITS ---
Vital Signs 08/23/24 13:08 Height 5 ft 5 in Weight 169 lb 12.095 oz BMI 28.2 BP 100/70 Blood Pressure Location Rt brachial Position Sitting Pulse 108 H Pulse Source Pulse Oximeter Pulse Oximetry (%) 100 Oxygen Delivery Method Room Air Intake Visit Reasons: f/u familial hypercholesterolemia Intake Note: Patient present today for familial hypercholesterolemia follow up visit. Aircraft Instrument Mechanic Required: No Accompanied by: Self / Same As Patient Allergies pantoprazole Allergy (Unknown, Verified 02/09/24 09:51) chest pain diphenhydramine [From Benadryl] Allergy (Verified 02/09/24 09:51) Hives esomeprazole [From NEXIUM] Adverse Reaction (Mild, Verified 02/09/24 09:51) DIARRHEA sumatriptan Adverse Reaction (Verified 02/09/24 09:51) Migraine birch trees Allergy (Unknown, Uncoded 02/09/24 09:51) Sneezing oak trees Allergy (Unknown, Uncoded 02/09/24 09:51) nasal congestion SEASONAL ALLERGIES Allergy (Unknown, Uncoded 02/09/24 09:51) UNKNOWN Medication List - Last Reconciled 08/23/24 by Giuseppe Duval MD albuterol sulfate 90 mcg/actuation 2 inhalations inhalation Q4-6H PRN alprazolam 0.5 mg PO DAILY azithromycin For 250 mg dose pack: take 500 mg today (day 1), then 250 mg for 4 days (days 2-5) benzonatate 100 mg PO BID PRN bupropion HCl XL 450 mg PO DAILY cholecalciferol (vitamin D3) 100 mcg (2 x 50 mcg (2,000 unit)) PO DAILY 30 days duloxetine 40 mg PO QAM esketamine (Spravato) 84 mg intranasal DAILY evolocumab (Repatha SureClick) 140 mg subcut Q2W 30 days levothyroxine 88 mcg PO DAILY metformin ER 500 mg PO DAILY metoclopramide HCl 10 mg PO DAILY PRN metoclopramide HCl (Reglan) 5 mg PO Q8H PRN rosuvastatin 40 mg PO DAILY selegiline (Emsam) 1 patch topical DAILY sumatriptan succinate 50 mg PO PRN tirzepatide (weight loss) (Zepbound) 5 mg (0.5 mL) subcut QWEEK Ventolin HFA 90 mcg/actuation (albuterol sulfate) 2 puffs inhalation Q6H PRN NS HPI Comments Details: 34 YO Female with PMHx HLD and Hypothyroidism who is seen in F/U for HLD, Hypothyroidism . ?1) Hypothyroidism: ?First diagnosed with Hypothyroidism in April 2014 with labs revealing TSH >100. This occured shortly after her with her twins. TSH was checked during the and was WNL. A few months later she was having significant symptoms of hypothyroidism and labs were repeated revealing TSH >100. She was started on Levothyroxine 100 mcg PO daily. 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 Labs later revealed overreplacement, so levothyroxine was decreased. She remains on levothyroxine 75 mcg PO daily now. ? She also reports intermittent swelling in her neck, not currently present. She did have an US head and neck which revealed mildly enlarged but not abnormal appearing cervical lymph nodes. ?Menses are regular. ?Denies using Biotin ?She did have a thyroid US that was read as a multinodular thyroid. Images were independently reviewed and this represents a lonnie gland with no discrete nodules, just pseudonodules. She denies any compressive symptoms currently. ?2) HLD: ?Was diagnosed with HLD at the age of 19. She was on this medication from the age of [age], and this was stopped during . She resumed it briefly in between pregnancies from [id number], but then stopped due to another . She just stopped in January 2018 and shortly after presented to us. ?She did have elevated Apo B levels, and history consistent with familial HLD. She meets this diagnosis based on criteria. She was started on Atorvastatin 40 mg PO daily, but LDL remained significantly elevated at 229. She was changed to Atorvastatin 80 mg PO daily and Zetia 10 mg PO daily at that time. We attempted to get Praluent covered for her, but this was consistently denied by her insurance. ?Repeat lipid panel reveals LDL still elevated >200. She also reports significant myalgias to the point she is unable to sleep at night. ?She does have a significant family history of premature CAD in her mother with her first ME in her 40's, and also her Grandfather. ?She is not interested in additional pregnancies. She is using abstinence or condoms for contraception. She was referred to Cardiology and was referred for coronary artery calcium scoring, She is currently taking rosuvastatin 40 mg q.d., ezetimibe 10 mg q.d. and Repatha 140 mg Q weekly ?Thyroid US: ?02/20/2021 Right Thyroid Lobe: 4.0 x 1.4 x 0.9 cm, volume 2.5 mL. Previously 4.5 x 1.5 x 1.2 cm, volume 4.2 mL. Parenchyma: The gland echotexture is heterogeneous. Thyroid vascularity is increased. Left Thyroid Lobe: 4.0 x 1.3 x 1.5 cm, volume 4.1 mL. Previously 4.2 x 1.1 x 1.5 cm, volume 3.6 mL. Parenchyma: The gland echotexture is heterogeneous. Thyroid vascularity is increased. Isthmus: 0.17 cm in maximum AP dimension. Previously 0.3 cm. Comparison of the nodules with prior exam is difficult. Estimated total number of nodules greater than or equal to 1 cm: 0. Tax Associate Attorney nodules versus areas of gland heterogeneity are described as follows: 1.? Location: Right inferior. ?? ? Size: 0.5 x 0.5 x 0.6 cm, volume 0.1 mL. ?? ? Previously: Not seen on the previous study. ?? ? Nodule characteristics: ?? ? Composition: Spongiform (0). ?? ? Echogenicity: Anechoic (0). ?? ? Shape: Not taller than wide (0). ?? ? Margins: Smooth (0). ?? ? Echogenic Foci: None (0). ? ACR TI-RADS total points: 0 ?? ? ACR TI-RADS category: 1 ?? ? 2.? Location: Right inferior. ?? ? Size: 0.7 x 0.5 x 0.5 cm, volume 0.1 mL. ?? ? Previously: 0.8 x 0.5 x 0.5 cm, volume 0.1 mL. ?? ? Nodule characteristics: ?? ? Composition: Spongiform (0). ?? ? Echogenicity: Anechoic (0). ?? ? Shape: Not taller than wide (0). ?? ? Margins: Smooth (0). ?? ? Echogenic Foci: None (0). ? ACR TI-RADS total points: 0 ?? ? ACR TI-RADS category: 1 ? Significant change in size (>/= 20% in 2 dimensions and minimal increase of 2 mm or 50% or greater increase in volume): ?? ? Change in features: ?? ? Change in ACR TI-RADS risk category: 3.? Location: Left mid. ?? ? Size: 0.6 x 0.61 x 0.4 cm, volume 0.1 mL. ?? ? Previously: 0.5 x 0.4 x 0.4 cm, volume 0.04 mL. ?? ? Nodule characteristics: ?? ? Composition: Spongiform (0). ?? ? Echogenicity: Anechoic (0). ?? ? Shape: Not taller than wide (0). ?? ? Margins: Smooth (0). ?? ? Echogenic Foci: None (0). ? ACR TI-RADS total points: 0 ?? ? ACR TI-RADS category: 1 ? Significant change in size (>/= 20% in 2 dimensions and minimal increase of 2 mm or 50% or greater increase in volume): ?? ? Change in features: ?? ? Change in ACR TI-RADS risk category: NODES: See separate soft tissue neck ultrasound performed the same day. US Soft Tissue Head and Neck: 02/20/2021 FINDINGS: THYROID BED: Prior thyroidectomy. No residual thyroid tissue demonstrated in the thyroid bed. No cystic or solid nodules demonstrated in the thyroid bed. RIGHT NECK SOFT TISSUES: Scattered nodes are present bilaterally. The largest node on the right level 2 and demonstrates cortical thickening. Lymph nodes otherwise demonstrate normal architecture with normal fatty hilus, normal cortical thickness, and no cystic change or calcification. No abnormal color flow. The largest nodes are as follows: Level 2: 2.4 x 0.9 x 1.5 cm.? Cortical thickening otherwise normal ras architecture. Level 2:1.4 x 0.5 x 1.9 cm. Normal abdominal architecture. LEFT NECK SOFT TISSUES: Scattered architecturally normal nodes are present. The nodes show normal fatty hilus, normal cortical thickness, and no cystic change or calcification. No abnormal color flow. The largest nodes are as follows: Level 1B: 2.1 x 0.6 x 1.4 cm.? Normal ras architecture. US/US soft tiss head and/or neck IMPRESSION: 1. Bilateral cervical lymphadenopathy. There are 3 enlarged lymph nodes, one of which demonstrates abnormal ras architecture with cortical thickening. ? 2. If clinically indicated further evaluation of the neck soft tissues and nodes may be performed with CT soft tissue neck with intravenous contrast. Labs: Laboratory Tests 05/31/22 07/19/22 07/19/22 09:33 09:53 09:53 Creatinine 0.87 Estimated GFR > 60 LDL Cholesterol Direct 147 H 25-OH Vitamin D Total 11.0 TSH 2.91 Free T4 0.80 The patient is a 34-year-old female presenting for follow-up regarding management of hyperlipidemia, vitamin D deficiency, assessment of hair loss, and hypothyroidism. The patient has a history of stopping Repatha for approximately two months, instead managing cholesterol with rosuvastatin and Zetia, her LDL previously assessed at critically low levels while on Repatha. Seeking alternatives due to adverse effects, the patient agreed to returning to [facility] when reviewed. She also reports enduring significant fatigue related to persistently low vitamin D levels. Issues with hair thinning remain, believed related to previously diagnosed PCOS- linked androgenic alopecia. Past interventions, including spironolactone, offered minimal improvement. Menstrual cycles are regular, negating necessity for control. She documented low blood pressure, with symptoms of dizziness upon posture change. The patient's anemia prompts consideration of potential gastroenterological contributors to her low vitamin D absorption. Hypothyroid management has remained stable, with ongoing review to determine any links between conditions. - Repatha (evolocumab): Previously used for hyperlipidemia management ? discontinued. - Rosuvastatin: Currently used for cholesterol management. - Zetia (ezetimibe): Current cholesterol management. - Vitamin D 2000 IU weekly: For vitamin D deficiency; minimal improvement. - Spironolactone: Previously utilized for androgenic alopecia; ceased due to inadequate results. - Mounjaro: Utilized for obesity management, with recent dose adjustments. Now on 5 mg Qwkly - Levothyroxine: For hypothyroidism. - Labs: LDL cholesterol previously noted at 8 and more recently at 66. Vitamin D level in single digits, improving to 10.8. - Tests and Diagnostics: History of elevated free testosterone, assessed in 2019. [facility] Medical History Obesity Anemia Psoriasis Asthma Migraine Major depressive disorder, recurrent episode with anxious distress Familial hypercholesterolemia Vitamin D deficiency PCOS (polycystic ovarian syndrome) Hypothyroidism Allergy to cats Multiple environmental allergies Surgical History History of removal of ovarian cyst Family History Father Hyperlipidemia Mother Hyperlipidemia Hypertension Diabetes CVD (cardiovascular disease) Social History Household Members: Family Household Members Other:: None Alcohol intake: never Patient Tobacco Use Status: Never used Tobacco e-Cigarette/Vaping Use: Never Used Physical Exam Vital Signs: Last Vital Signs Pulse 108 H 08/23/24 13:08 BP 100/70 08/23/24 13:08 Pulse Ox 100 08/23/24 13:08 Oxygen Delivery Method Room Air 08/23/24 13:08 BMI result Body Mass Index 28.2 Const Other: Thyroid gland is normal size weighs about 15 g. There are no thyroid nodules palpable. There are no cushingoid features. Lungs are clear to auscultation. Heart is S1-S2. Extremity exam reveals the absence of edema Assessment & Plan Assessment & Plan (1) Familial hypercholesterolemia: Code(s): E78.01 - Familial hypercholesterolemia Category: Medical Plan: Patient has a history of familial hypercholesterolemia and has been treated with maximum dose statin, ezetimibe and previously PCSK9 inhibitor. Patient is experiencing musculoskeletal side effects from the statin and ezetimibe 1. Hyperlipidemia Resuming Repatha exclusively to monitor LDL management efficiency, reducing associated statin side effects. Will review lipid panels in 8 weeks (2) Vitamin D deficiency: Code(s): E55.9 - Vitamin D deficiency, unspecified Category: Medical Plan: Currently on 2000 IU of vitamin D3 per day with low 25- vitamin-D levels 2. Vitamin D Deficiency Augment dosage and investigate potential absorption issues considering celiac disease. We will start ergocalciferol 21620 IU once a week and recheck [id number] level in 8 weeks with potential endoscopic evaluation for malabsorption causes (3) Hypothyroidism: Code(s): E03.9 - Hypothyroidism, unspecified Category: Medical Plan: Currently on 75 mcg levothyroxine. Clinically and biochemically euthyroid Plan is to continue current regimen (4) Androgenic alopecia: Code(s): L64.9 - Androgenic alopecia, unspecified Plan: 4. Androgenic Alopecia Dermatological evaluation advised. Historical spironolactone results solidify commitment to non-hormonal investigative routes for alopecia management. (5) Obesity: Code(s): E66.9 - Obesity, unspecified Category: Medical Plan: Will increase Mounjaro to 7.5 mg Orders: Orders Celiac Disease Panel Today E55.9 - Vitamin D deficiency, unspecified Vitamin D 25-OH Total 3 Months E55.9 - Vitamin D deficiency, unspecified Lipid Panel 2 Months E78.01 - Familial hypercholesterolemia Medications: New ergocalciferol (vitamin D2) 1,250 mcg PO QWEEK 5 caps 2RF tirzepatide (weight loss) (Zepbound) 7.5 mg (0.5 mL) subcut QWEEK 2 mL 4RF Refilled evolocumab (Repatha SureClick) 140 mg subcut Q2W 30 days 3 mL 11RF E78.01 - Familial hypercholesterolemia Discontinued tirzepatide (weight loss) (Zepbound) Discontinued Reason: Doctor's Order 5 mg (0.5 mL) subcut QWEEK 2 mL 4RF Coding Level of Care Code Est Pt Level 3 (68164) Diagnoses Familial hypercholesterolemia E78.01 Vitamin D deficiency E55.9 Hypothyroidism E03.9 Androgenic alopecia L64.9 Obesity E66.9
--- OUTSIDE RECORDS SUMMARY | 2024-08-23 15:26 | XMS_ITS | Clinical Summary ---
Author Organization [facility] Address [address] [place] [address] Care Team Providers Care Retention Specialist Name Role Phone Cody Solis MD Primary Care Provider [phone] Allergies Active Allergy Reactions Criticality Noted Date [...] age to complete this topic Care Teams Retention Specialist Relationship Specialty Start Date End Date Cody Solis MD PCP - General Internal Medicine 12/02/22
--- OUTSIDE RECORDS SUMMARY | 2024-08-23 15:26 | XMS_ITS | Clinical Summary ---
Author Organization [facility] Address [address] [place] [address] Care Team Providers Care Community Service Aide Name Role Phone Margaret Hillman MD Primary Care Provider [phone] Social History Tobacco Use Types Packs/Day Years Used Date Smoking Tobacco: Never Assessed Comments Unknown Sex and Gender Information Value Date Recorded Sex Assigned at Not on file Legal Sex Female 12:19 PM EDT Gender Identity Not on file Sexual Orientation Not on file Plan of Treatment Health Maintenance Due Date Last Done Comments Hepatitis C Virus Screening 1991 HIV Screening 2004 DTaP/Tdap/Td Vaccines (1 - Tdap) 2010 Hepatitis B Vaccines (1 of 3 - 19+ 3-dose series) 2010 Pap Smear (Ages 21-65) 2012 Influenza Vaccine 12/01/2023 COVID-19 Vaccine (1 - 2023-2 5 season) 2024 HPV Vaccines Aged Out No longer eligi ble based on patient's age to complete this topic Pneumococcal Vaccine: Pediat nikki (0-5 Years) and At-Risk Patients (6 to 49 Years) Aged Out No longer eligible b ased on patient's age to complete this [place] [id number] [employer] Care Teams Community Service Aide Relationship Specialty Start Date End Date Margaret Hillman MD [address] [place] [id number] PCP - General Internal Medicine 08/19/21
== END 2024-08-23 13:49 | disposition home or self-care (01) ==
LOC: HO.ENCR 13:07
PROVIDERS: PCP Internal Medicine; Visit Provider Internal Medicine Endocrinology, Diabetes & Metabolism
DX: E78.01 Familial hypercholesterolemia (principal); E55.9 Vitamin D deficiency, unspecified; E03.9 Hypothyroidism, unspecified; L64.9 Androgenic alopecia, unspecified; E66.9 Obesity, unspecified
CPT/HCPCS: 99213

== ENCOUNTER → 2024-08-23 13:06 | Outpatient (BNVA) | payer OTHER, SELFPAY | PROVIDERS: PCP Internal Medicine; Visit Provider Internal Medicine Endocrinology, Diabetes & Metabolism ==

== ENCOUNTER 2024-10-29 20:59 | Emergency (ER) | payer OTHER, SELFPAY ==
--- NOTE | 2024-10-29 | ECG_ITS ---
Test Reason : chest pain Blood Pressure : */* mmHG Vent. Rate : 79 BPM Atrial Rate : 79 BPM P-R Int : 146 ms QRS Dur : 86 ms QT Int : 380 ms P-R-T Axes : 47 54 40 degrees QTcB Int : 435 ms Normal sinus rhythm Normal ECG When compared with ECG of 08-Mar-2023 09:31, No significant change was found Referred By: Generic ED Physician Electronically Signed By: ELROY BALL MD
--- NOTE | ~2024-10-29 | XR_ITS ---
CLINICAL HISTORY: Right-sided chest pain 2 view chest x-ray Comparison: CR/SR - XR CHEST 2V - 03/08/23 08:50 EST Findings: No consolidation or effusion. Normal size heart. No acute fracture. IMPRESSION: 1. No acute findings. This document has been electronically signed by: Jensen Metzger MD on 10/30/2024 01:29:31
[2024-10-29 21:08] VITALS: BP 106/68; PULSE 90; RESP 16; TEMP 36.4; O2SAT 100; BMI 26.6
[2024-10-29 21:34] LABS: MANUAL DIFF FLAG NO
[2024-10-29 21:40] LABS: Hematocrit 31.7 % (37.0-47.0); Hemoglobin 10.8 g/dl (12.0-16.0); Imm Gran Abs Auto 0.02 X10*3/uL (0.00-0.03); Imm Gran Pct Auto 0.2 % (0.0-0.4); Lymphocytes Absolute Auto 3.1 X10*3/uL (1.2-4.9); Mean Corpuscular HGB Conc 34.1 g/dl (31.0-35.0); Mean Corpuscular Hemoglobin 29.5 pg (27.0-33.0); Mean Corpuscular Volume 86.6 fL (80.0-98.0); NRBC Abs Auto 0.000 X10*3/uL (0.0-0.012); NRBC Pct Auto 0.0 /100WBC (0.0-0.2); Platelet Count 421 X10*3/uL (160-400); Red Blood Count 3.66 X10*6/uL (4.20-5.50); White Blood Count 9.5 X10*3/uL (4.8-10.8)
[2024-10-29 21:56] LABS: Alanine Aminotransferase 18 U/L (0-31); Albumin Level 4.2 g/dL (3.5-5.0); Alkaline Phosphatase 78 U/L (39-117); Anion Gap 10 (12-20); Aspartate Amino Transferase 20 U/L (5-31); Blood Urea Nitrogen 6 mg/dL (9-16); Calcium 9.1 mg/dL (8.4-10.2); Carbon Dioxide 24 mmol/L (22-29); Chloride 108 mmol/L (96-108); Creatinine Clr Calc Pharmacy 110.8; Estimated Glomerular Filt Rate > 60; Lipase 12 U/L (8-78); Potassium 3.6 mmol/L (3.3-5.1); Sodium 138 mmol/L (135-145); Total Protein 7.2 g/dL (6.5-8.0)
[2024-10-29 21:58] LABS: Troponin-I High Sensitivity < 2.7 ng/L (<3.5-17.0)
[2024-10-29 22:17] LABS: Resp Syncy Virus RNA Qual PCR NEGATIVE (Negative); SARS COV2 PCR INHOUSE NEGATIVE (Negative)
[2024-10-29 22:33] VITALS: BP 114/81; PULSE 84; RESP 18; TEMP 36.2; O2SAT 100
--- NOTE | 2024-10-30 00:31 | ED.CHESTPAIN ---
HPI - Chest Pain General Chief Complaint: Chest Pain Stated Complaint: chest pain,sob Time Seen by Provider: 10/30/24 00:19 Source: patient Mode of arrival: ambulatory Limitations: no limitations History of Present Illness ED Provider: DR. Barcenas HPI narrative: 34-year-old female came in for evaluation of right-sided chest pain started 24 hours ago after patient had strenuous workout and lifting weight, pain started gradually after she finished the exercise last night right side scapular, shoulder, and neck pain that started to get worse as the day progressed, patient now can not move her right arm or take a deep breath secondary to pain. No recent travel, no prolonged immobilization, no lower extremity swelling or tenderness. Related Data Home Medications ?Medication ?Instructions ?Recorded ?Confirmed metoclopramide HCl 10 mg tablet 10 mg PO DAILY PRN Nausea 06/02/21 08/23/24 bupropion HCl 450 mg 24 hr tablet, 450 mg PO DAILY 09/01/22 08/23/24 extended release sumatriptan succinate 50 mg tablet 50 mg PO PRN 09/01/22 08/23/24 duloxetine 40 mg capsule,delayed 40 mg PO QAM 11/10/22 08/23/24 release alprazolam 0.5 mg tablet 0.5 mg PO DAILY 10/17/23 08/23/24 esketamine 84 mg (28 mg x 3) nasal 84 mg intranasal DAILY 10/17/23 08/23/24 spray (Spravato) selegiline 9 mg/24 hr transdermal 1 patch topical DAILY 10/17/23 08/23/24 24 hour patch (Emsam) Previous Rx's ?Medication ?Instructions ?Recorded Ventolin HFA 90 mcg/actuation 2 puff inhalation Q6H PRN 07/13/21 aerosol inhaler (albuterol sulfate) shortness of breath or wheezing #18 grams albuterol sulfate 90 mcg/actuation 2 inh inhalation Q4-6H PRN 03/08/23 breath activated powder inhaler shortness of breath or wheezing #1 ea azithromycin 250 mg tablet See Rx Instructions PO .COMPLEX #6 03/08/23 tabs benzonatate 100 mg capsule 100 mg PO BID PRN cough #20 caps 03/08/23 metoclopramide HCl 5 mg tablet 5 mg PO Q8H PRN nausea and 05/23/23 (Reglan) vomiting #7 tabs rosuvastatin 40 mg tablet 40 mg PO DAILY #90 tabs 10/24/23 cholecalciferol (vitamin D3) 50 100 mcg (2 x 50 mcg (2,000 unit)) 02/27/24 mcg (2,000 unit) capsule PO DAILY 30 days #60 caps metformin 500 mg tablet,extended 500 mg PO DAILY #30 tabs 06/14/24 release 24 hr ergocalciferol (vitamin D2) 1,250 1,250 mcg PO QWEEK #5 caps 08/23/24 mcg (50,000 unit) capsule evolocumab 140 mg/mL subcutaneous 140 mg subcut Q2W 30 days #3 mL 08/23/24 pen injector (Repatha SureClick) tirzepatide (weight loss) 7.5 7.5 mg (0.5 mL) subcut QWEEK #2 mL 08/23/24 mg/0.5 mL subcutaneous pen injector (Zepbound) levothyroxine 88 mcg tablet 88 mcg PO DAILY #30 tabs 09/05/24 cyclobenzaprine 10 mg tablet 10 mg PO TID PRN muscle spasm #10 10/30/24 tabs ibuprofen 800 mg tablet 800 mg PO Q8H PRN pain #14 tabs 10/30/24 oxycodone 5 mg tablet 5 mg PO Q8H PRN pain #10 tabs 10/30/24 Allergies Allergy/AdvReac Type Severity Reaction Status Date / Time pantoprazole Allergy Unknown chest pain Verified 10/29/24 21:11 diphenhydramine (From Allergy Hives Verified 10/29/24 21:11 Benadryl) esomeprazole (From NEXIUM) AdvReac Mild DIARRHEA Verified 10/29/24 21:11 sumatriptan AdvReac Migraine Verified 10/29/24 21:11 birch trees Allergy Unknown Sneezing Uncoded 02/09/24 09:51 oak trees Allergy Unknown nasal Uncoded 02/09/24 09:51 congestion SEASONAL ALLERGIES Allergy Unknown UNKNOWN Uncoded 02/09/24 09:51 Review of Systems Review of Systems: All other systems are reviewed and are negative Constitutional: Reports as per HPI and Reports no additional constitutional complaints Eyes: Reports as per HPI and Reports no additional eye complaints Reports system reviewed and no additional complaints, except as documented Cardiovascular: Reports as per HPI and Reports no additional cardiovascular complaints Respiratory: Reports as per HPI and Reports no additional respiratory complaints Gastrointestinal: Reports as per HPI and Reports no additional gastrointestinal complaints Genitourinary: Reports no additional female genitourinary complaints Musculoskeletal: Reports no additional musculoskeletal complaints Skin/Breast: Reports system reviewed and no additional complaints, except as docu Psychiatric: Reports no additional psychiatric complaints Endocrine: Reports no additional endocrine complaints Hematologic/Lymphatic: Reports no additional hematologic/lymphatic complaints Allergic/Immunologic: Reports no additional allergic/immunologic complaints Reports system reviewed and no additional complaints, except as documented and Reports Abnormal speech present [facility] Past Medical History Medical History Obesity Anemia Psoriasis Asthma Migraine Major depressive disorder, recurrent episode with anxious distress Familial hypercholesterolemia Vitamin D deficiency PCOS (polycystic ovarian syndrome) Hypothyroidism Allergy to cats Multiple environmental allergies Surgical History History of removal of ovarian cyst Family History Family History Father Hyperlipidemia Mother Hyperlipidemia Hypertension Diabetes CVD (cardiovascular disease) Social History Social History Household Members: Family Household Members Other:: None Alcohol intake: never Patient Tobacco Use Status: Never used Tobacco Smoked in Last 30 Days: No e-Cigarette/Vaping Use: Never Used Use of substances other than those prescribed or required for medical reasons: No Advance Directives: No Advance Directives Information Provided: Yes Do you have a plan to hurt others: No Plan Patient : No Physical Exam Vital Signs: Vital Signs: Last Vital Signs Temp 97.1 F 10/29/24 22:33 Pulse 84 10/29/24 22:33 Resp 18 10/29/24 22:33 BP 114/81 10/29/24 22:33 Pulse Ox 100 10/29/24 22:33 O2 Del Method Room Air 10/29/24 22:33 BMI result Body Mass Index 26.6 Vital signs have been reviewed and appear to be correct. Blood pressure elevated. Heart rate normal. Respiratory rate normal. Temperature normal. Oxygen saturation normal. Appearance: Alert. Oriented X3. No acute distress. Head: Normal external exam. Normocephalic. Atraumatic. No Lerner signs noted. No raccoon eyes noted Eyes: PERRLA. EOMI. Conjunctiva and sclera normal. Eyelids normal. ENT: TM's Normal. Pharynx normal. Uvula midline. Moist mucous membranes. No trismus noted. No drooling noted. No muffled voice noted. Neck: Normal inspection. Neck supple. FROM. No adenopathy. Thyroid Normal. No meningeal signs. No neck mass noted. CVS: Normal heart rate and rhythm. Heart sound normal. No murmurs noted. Pulses normal throughout. Respiratory: No respiratory distress. Painless inspiration. Breath sounds normal. No wheezes/rales/rhonchi noted. Point of tenderness over the right scapula, No accessory muscle usage noted or decreased air movement noted. Abdomen: Soft and nontender. Bowel sounds normal in all 4 quadrants. No distention noted. No organomegaly noted. No visible injury noted. Back: No CVA tenderness. Full range of motion noted. Skin: Skin warm and dry. Normal skin color. Normal skin turgor. No rashes/lesions/lacerations noted. Extremities: Right shoulder held in adduction position very painful abduction position, no shoulder anterior fullness, neurovascular exam is intact. Neuro: Oriented X 3. Cranial nerve exam: II-XII are grossly intact No motor deficit. No sensory deficit. Reflexes normal. Course Reevaluation(s) Reevaluation #1: Feels better with pain medication, able to breathe and move with much less pain. Negative workup for ACS, no risk for pulmonary embolism was negative D-dimer, history and physical exam consistent with muscular pain after strenuous lifting weight. Significant improvement with pain medication. Will discharge with oxycodone. Patient was instructed to avoid strenuous exercising. Time: 02:00 Medications Administered Discontinued Medications Generic Name Dose Route Start Last Admin Trade Name Freq PRN Reason Stop Dose Admin Ketorolac Tromethamine 15 mg 10/30/24 00:29 10/30/24 00:40 Ketorolac Tromethamine 15 Mg/Ml Vial IVPUSH 10/30/24 00:30 15 mg ONCE ONE Administration Morphine Sulfate 2 mg 10/30/24 00:29 10/30/24 00:40 Morphine Sulfate 2 Mg/Ml Cartridge IVPUSH 10/30/24 00:30 2 mg ONCE ONE Administration Protocol Medical Decision Making Differential Diagnosis Differential Diagnoses: The differential diagnosis associated with the presentation includes (ACS, pulmonary embolism, no fracture, myofascial pain, cervical radiculopathy.) Admission/Observation Consideration of admission/observation: Escalation of care including admission/observation considered Lab Data MDM Lab Attestation statement: I reviewed the patient's lab results. 10/29/24 21:30 10/29/24 21:29 Labs: Lab Results 10/29/24 10/29/24 10/30/24 Range/Units 21:29 21:30 00:40 WBC 9.5 (4.8-10.8) X10*3/uL RBC 3.66 L D (4.20-5.50) X10*6/uL Hgb 10.8 L (12.0-16.0) g/dl Hct 31.7 L (37.0-47.0) % MCV 86.6 (80.0-98.0) fL MCH 29.5 (27.0-33.0) pg MCHC 34.1 (31.0-35.0) g/dl RDW 14.0 (11.0-16.0) % Plt Count 421 H (160-400) X10*3/uL MPV 8.2 L (9.4-12.3) fL Immature Gran % (Auto) 0.2 (0.0-0.4) % Neut % (Auto) 56.4 (45-73) % Lymph % (Auto) 32.7 (20-40) % Mcpherson % (Auto) 6.8 (2-11) % Eos % (Auto) 3.3 (0-4) % Baso % (Auto) 0.6 (0-2) % Lymph # (Auto) 3.1 (1.2-4.9) X10*3/uL Mcpherson # (Auto) 0.6 (0.1-1.2) X10*3/uL Eos # (Auto) 0.3 (0.0-0.4) X10*3/uL Baso # (Auto) 0.1 (0.0-0.2) X10*3/uL Abs Immat Gran (auto) 0.02 (0.00-0.03) X10*3/uL Absolute Neuts (auto) 5.4 (2.0-8.3) x10*3/uL Absolute Nucleated RBC 0.000 (0.0-0.012) X10*3/uL Nucleated RBC % (auto) 0.0 (0.0-0.2) /100WBC D-Dimer High Sensitivty < 150 NG/ML Sodium 138 (135-145) mmol/L Potassium 3.6 (3.3-5.1) mmol/L Chloride 108 (96-108) mmol/L Carbon Dioxide 24 (22-29) mmol/L Anion Gap 10 L (12-20) BUN 6 L (9-16) mg/dL Creatinine 0.72 (0.5-1.4) mg/dL Estim Creat Clear Calc 110.8 Estimated GFR > 60 Random Glucose 92 (60-115) mg/dL Calcium 9.1 (8.4-10.2) mg/dL Total Bilirubin 0.4 (0.0-1.0) mg/dL AST 20 (5-31) U/L ALT 18 (0-31) U/L Alkaline Phosphatase 78 (39-117) U/L Total Creatine Kinase 84 (26-140) U/L Troponin I High Sens < 2.7 (<3.5-17.0) ng/L Total Protein 7.2 (6.5-8.0) g/dL Albumin 4.2 (3.5-5.0) g/dL Lipase 12 (8-78) U/L Beta HCG, Quant < 2 mIU/mL Influenza Type A (PCR) NEGATIVE (Negative) Influenza Type B (PCR) NEGATIVE (Negative) RSV RNA Qual (PCR) NEGATIVE (Negative) SARS-CoV-2 RNA (RT-PCR) NEGATIVE (Negative) Independent Interpretation I performed an independent interpretation of an: EKG (Normal sinus rhythm at 79 beats per minutes, normal intervals, no ST-T changes, no old EKG to compare.) and Plain X-Ray (Chest: No acute intrathoracic pathology.) Radiology Impression Discussion of test interpretation with radiology: I have reviewed the radiologist's reading. Critical Care Time Critical Care Time Critical Care Time: Yes Total Critical Care Time: 60 Attestation: The patient was critically ill with a high probability of imminent or life-threatening deterioration. I spent greater than 30 minutes of discontinuous time evaluating the patient, delivering critical care at the bedside, discussing evaluating data with consultants. Critical care time does not include time spent performing separately billable procedures or teaching. Time spent performing critical care was 60 minutes. Discharge Plan Discharge Clinical Impression: Acute myofascial pain Patient Disposition: Home, Self-Care Instructions: Musculoskeletal Pain (ED) Prescriptions: New oxycodone 5 mg tablet 5 mg PO Q8H PRN (Reason: pain) Qty: 10 0RF Rx Instructions: Partial Fill upon patient request. ibuprofen 800 mg tablet 800 mg PO Q8H PRN (Reason: pain) Qty: 14 0RF cyclobenzaprine 10 mg tablet 10 mg PO TID PRN (Reason: muscle spasm) Qty: 10 0RF No Action albuterol sulfate [Ventolin HFA] 90 mcg/actuation HFA aerosol inhaler 2 puff inhalation Q6H PRN (Reason: shortness of breath or wheezing) Qty: 18 1RF rosuvastatin 40 mg tablet 40 mg PO DAILY Qty: 90 3RF cholecalciferol (vitamin D3) 50 mcg (2,000 unit) capsule 100 mcg PO DAILY 30 Days Qty: 60 11RF metformin 500 mg tablet extended release 24 hr 500 mg PO DAILY Qty: 30 4RF levothyroxine 88 mcg tablet 88 mcg PO DAILY Qty: 30 5RF metoclopramide HCl 10 mg Tablet 10 mg PO DAILY PRN (Reason: Nausea) albuterol sulfate 90 mcg/actuation aerosol powdr breath activated 2 inh inhalation Q4-6H PRN (Reason: shortness of breath or wheezing) Qty: 1 0RF benzonatate 100 mg capsule 100 mg PO BID PRN (Reason: cough) Qty: 20 0RF azithromycin 250 mg tablet See Rx Instructions .ROUTE .COMPLEX Qty: 6 0RF Rx Instructions: For 250 mg dose pack: take 500 mg today (day 1), then 250 mg for 4 days (days 2-5) metoclopramide HCl [Reglan] 5 mg tablet 5 mg PO Q8H PRN (Reason: nausea and vomiting) Qty: 7 0RF sumatriptan succinate 50 mg tablet 50 mg PO PRN duloxetine 40 mg capsule,delayed release(DR/EC) 40 mg PO QAM Repatha SureClick 140 mg/mL pen injector 140 mg subcut Q2W 30 Days Qty: 3 11RF ergocalciferol (vitamin D2) 1,250 mcg (50,000 unit) capsule 1,250 mcg PO QWEEK Qty: 5 2RF Zepbound 7.5 mg/0.5 mL pen injector 7.5 mg subcut QWEEK Qty: 2 4RF bupropion HCl 450 mg tablet extended release 24 hr 450 mg PO DAILY alprazolam 0.5 mg tablet 0.5 mg PO DAILY Emsam 9 mg/24 hr patch 24 hour 1 patch topical DAILY Spravato 84 mg (28 mg x 3) spray,non-aerosol 84 mg intranasal DAILY Print Language: Arabic
[2024-10-30 00:55] LABS: D Dimer High Sensitivity < 150 NG/ML
[2024-10-30 01:59] VITALS: BP 114/80; PULSE 88; RESP 19; TEMP 36.2; O2SAT 100
== END 2024-10-30 02:00 | disposition home or self-care (01) ==
PROVIDERS: Emergency Provider Emergency Medicine
DX: M79.18 Myalgia, other site (principal); M25.511 Pain in right shoulder; M54.2 Cervicalgia; R06.02 Shortness of breath; Z03.818 Encounter for observation for suspected exposure to other biological agents ruled out; J45.909 Unspecified asthma, uncomplicated; Z79.899 Other long term (current) drug therapy
CPT/HCPCS: 36415; 71046; 80053; 82550; 83690; 84484; 84702; 85025; 85379; 87637; 93005; 96374; 96375; 99285; 99291; J1885; J2270

== ENCOUNTER → 2024-10-29 21:03 | Outpatient (BNV) | payer OTHER, SELFPAY | PROVIDERS: Emergency Provider Emergency Medicine; Visit Provider Internal Medicine Cardiovascular Disease | DX: R07.89 Other chest pain (principal) | CPT/HCPCS: 93010 ==

== ENCOUNTER → 2024-10-30 00:29 | Outpatient (BNV) | payer OTHER, SELFPAY | PROVIDERS: Emergency Provider Emergency Medicine; Visit Provider Radiology Diagnostic Radiology | DX: R07.9 Chest pain, unspecified (principal) | CPT/HCPCS: 71046 ==

== ENCOUNTER 2025-01-03 10:17 | Outpatient (AMB) | payer OTHER, SELFPAY ==
[2025-01-03 10:27] VITALS: BP 100/68; PULSE 86; RESP 15; TEMP 36.7; O2SAT 100; BMI 26.0
--- NOTE | 2025-01-03 10:27 | A.OFFPC_ITS ---
Vital Signs 01/03/25 10:27 Height 5 ft 5 in Weight 156 lb BMI 26.0 BP 100/68 Blood Pressure Location Rt brachial Position Sitting Respiration 15 Pulse 86 Pulse Source Pulse Oximeter Temp 98.0 F Temp Source Oral Pulse Oximetry (%) 100 Oxygen Delivery Method Room Air Intake Visit Reasons: Re-establish care Intake Note: Pt is here today to re-est care/PE Is last menstrual period known: Yes Last menstrual period: 12/16/24 Allergies pantoprazole Allergy (Unknown, Verified 01/10/25 00:30) chest pain diphenhydramine (From Benadryl) Allergy (Verified 01/10/25 00:30) Hives esomeprazole (From NEXIUM) Adverse Reaction (Mild, Verified 01/10/25 00:30) DIARRHEA sumatriptan Adverse Reaction (Verified 01/10/25 00:30) Migraine birch trees Allergy (Unknown, Uncoded 01/10/25 00:30) Sneezing oak trees Allergy (Unknown, Uncoded 01/10/25 00:30) nasal congestion SEASONAL ALLERGIES Allergy (Unknown, Uncoded 01/10/25 00:30) UNKNOWN Medication List - Last Reconciled 01/10/25 by Margaret Hillman MD albuterol sulfate 90 mcg/actuation (Ventolin HFA) 2 puffs inhalation Q6H PRN alprazolam 0.5 mg PO DAILY bupropion HCl XL 150 mg PO QAM cetirizine (Zyrtec) 10 mg PO DAILY PRN cholecalciferol (vitamin D3) 100 mcg (2 x 50 mcg (2,000 unit)) PO DAILY 30 days ergocalciferol (vitamin D2) 1,250 mcg PO QWEEK evolocumab (Repatha SureClick) mg subcut levothyroxine 88 mcg PO DAILY metformin ER 500 mg PO DAILY selegiline (Emsam) 1 patch topical DAILY tirzepatide (weight loss) (Zepbound) 7.5 mg (0.5 mL) subcut QWEEK Tobacco use date assessed: 01/03/25 Dental Screening Dental Screen Date: 01/03/25 Did you have a dental visit in the last 12 months?: No Did you have a dental problem in the last 6 months where you did not have access to dental care?: No Was dental information given to patient?: Patient has dentist HPI Re-establish care HPI Details - The patient is a 34-year-old female he re today to reestablish care with practice and for physical exam. - Anemia has been a persistent issue, po tentially linked to her history of celiac disease and vitamin D deficiency. - Hair loss has been ongoing, with poten tial contributing factors including hypothyroidism, anemia, and stress at home. -has major depression, followed by psych iatry. Emotional distress is exacerbated by marital issues, including her 's addiction problems and lack of support from his family. - The patient has a history of hypothyro idism, currently on levothyroxine 88 mcg daily. - She has been diagnosed with Polycystic Ovarian Syndrome (PCOS) and Premenstrual Dysphoric Disorder (PMDD), both contributing to her emotional and physical symptoms. She currently is followed by [facility] - Psoriatic arthritis has been identifie d, with symptoms exacerbated by previous statin use. - Asthma and allergic rhinitis are ongoi ng issues, with the patient experiencing frequent symptoms due to environmental allergens, previously seen at [facility] - has Costochondritis, aggravated by str ess - has familial hypercholesterolemia- cur rently followed at endocrine clinic, who also started her on Zepbound for treatment of obesity , started last July 2024, with good results, tolerating medication well [facility] Medical History History of obesity Hair thinning Anemia Psoriasis Asthma Migraine Major depressive disorder, recurrent episode with anxious distress Familial hypercholesterolemia Vitamin D deficiency PCOS (polycystic ovarian syndrome) Hypothyroidism Allergy to cats Multiple environmental allergies Surgical History History of removal of ovarian cyst Family History Father Hyperlipidemia Mother Hyperlipidemia Hypertension Diabetes CVD (cardiovascular disease) Social History Household Members: Family Household Members Other:: None Housing: House Alcohol intake: never Patient Tobacco Use Status: Never used Tobacco e-Cigarette/Vaping Use: Never Used service: No Current occupational status: unemployed Cognitive needs: No Hearing needs: No Vision needs: Yes Female Reproductive History Menstrual Date of last menstrual period: 12/16/24 Questionnaire PHQ-9 Over the last 2 weeks, how often have you been bothered by any of the following problems? 1. Little interest or pleasure in doing things: several days 2. Feeling down, depressed, or hopeless: more than half the days 3. Trouble falling or staying asleep, or sleeping too much: several days 4. Feeling tired or having little energy: nearly every day 5. Poor appetite or overeating: more than half the days 6. Feeling bad about yourself - or that you are a failure or have let yourself or your family down: several days 7. Trouble concentrating on things, such as reading the newspaper or watching television: several days 8. Moving or speaking so slowly that other people could have noticed. Or the opposite - being so fidgety or restless that you have been moving around a lot more than usual: several days 9. Thoughts that you would be better off or of hurting yourself in some way: not at all ( ) Total score: 12 Depression Screening Interpretation: Positive (Sees therapist at [facility] and followed by GÉNESIS LAGUNA[facility] ) Depression Screening Follow-up: Existing condition, In treatment and Community Mental Health Worker F/U Depression Screening Done: Yes 04303 - PHQ-9 Billing: Yes Source: Developed by Drs. Giuseppe Padilla, Silvia Del Toro, Chepe Brewster and colleagues, with an educational jaimee from [employer]. Thrive Questionnaire Date Thrive assessed: 01/03/25 I am a: Patient What is your living situation today?: I have a steady place to live Within the past 12 months, did the food you bought not last and you didn't have the money to get more?: Never true Within the past 12 months, did you worry whether your food would run out before you got money to buy more?: Never true Do you have trouble paying for medicines?: No Do you have trouble getting transportation to medical appointments?: No Do you have trouble paying your heating and electricity bill?: No Do you have trouble taking care of your child, family member or friend?: No Do you have trouble with day-to-day activities such as bathing, preparing meals, shopping, managing finances, etc.?: No Are you currently unemployed and looking for a job?: Yes Are you interested in more education?: No Please select the resources that you would like help with: Job search/training THRIVE Score: 0 AUDIT C Alcohol Use Questionnaire (AUDIT-C) 1. How often do you have a drink containing alcohol?: Never Total Score: 0 Score Reviewed/Action Taken: Yes CHARO-7 AMB Questionnaire CHARO-7 Date CHARO - 7 assessed: 01/03/25 Feeling nervous, anxious, or on edge: 2 = More than half the days Not being able to stop or control worryin = More than half the days Worrying too much about different things: 2 = More than half the days Trouble relaxin = Several days Being so restless that it is hard to sit still: 0 = Not at all Becoming easily annoyed or irritable: 1 = Several days Feeling afraid as if something awful might happen: 1 = Several days Total CHARO-7 score (0-4 normal; 5-9 mild; 10-14 moderate; 15-21 severe): 9 Source: Developed by Drs. Giuseppe Padilla, Silvia Del Toro, Chepe Brewster and colleagues, with an educational jaimee from [employer]. CHARO-7 Assessment Billing CHARO-7 Assessment Tool: CHARO-7 Assessment 51871 ACT Questionnaire In the past 4 weeks, how much of the time did your asthma keep you from getting as much done at work, school or at home?: None of the time During the past 4 weeks, how often have you had shortness of breath?: Not at all During the past 4 weeks, how often did your asthma symptoms wake you up at night or earlier than usual in the morning?: Not at all During the past 4 weeks, how often have you had to use your rescue inhaler or nebulizer medication?: Not at all How would you rate your asthma control during the past 4 weeks?: Completely controlled ACT Interpretation: Negative Score: 25 Review of Systems Const Reports as per HPI Eyes Reports no additional complaints ENT Denies dizziness Card Denies chest pain, Denies syncope, Denies pedal edema, Denies lightheadedness, Denies palpitations, Denies dyspnea and Denies dyspnea on exertion Resp Denies cough, Denies dyspnea and Denies dyspnea on exertion GI Denies hematochezia and Denies change in stool character Details: Sees [facility], sees Dr. Gutierrez, up-to-date with her cervical cancer screening and pelvic exam Denies difficulty voiding, Reports menorrhagia, Denies urinary incontinence, Denies vaginal discharge and Denies vaginal pruritus Musc Denies abnormal gait, Denies muscle cramps, Denies muscle weakness, Denies numbness, Denies radiating pain into limb and Denies tingling Skin/Breast Denies breast pain, Denies breast mass, Reports change in hair and Denies rash Neuro Denies abnormal gait, Denies dizziness, Denies syncope, Denies numbness and Denies tingling Psych Reports as per HPI Endo Denies palpitations Gualberto/Lymph Reports no additional complaints Aller/Immun Reports seasonal rhinorrhea Physical exam (Primary Care) Vital Signs: Last Vital Signs Temp 98.0 F 01/03/25 10:27 Pulse 86 01/03/25 10:27 Resp 15 01/03/25 10:27 BP 100/68 01/03/25 10:27 Pulse Ox 100 01/03/25 10:27 Oxygen Delivery Method Room Air 01/03/25 10:27 BMI result Body Mass Index 26.0 Tobacco/Smoking Status: Tobacco use Status Tobacco use date assessed 01/03/25 01/03/25 10:36 Patient Tobacco Use Status Never used Tobacco 01/03/25 10:36 e-Cigarette/Vaping Use Never Used 01/03/25 10:36 PHQ-9: PHQ-9 Score PHQ-9: Total score 12 01/03/25 13:16 Depression Screening Interpretation: Positive (Sees therapist at [facility] and followed by GÉNESIS LAGUNA[facility] ) Depression Screening Follow-up: Existing condition, In treatment and Community Mental Health Worker F/U Thrive Assessment: Date of Thrive Assessment Date Thrive assessed 01/03/25 01/03/25 13:16 Advance Care Planning discussion: Completed/Scanned Date of discussion: 01/03/25 Who was present: Patient Forms completed: Health Care Proxy Time spent: 16-45 minutes Actual minutes spent: 2 Const General: cooperative, comfortable and no acute distress Nutritional Appearance: overweight Orientation/consciousness: patient oriented x3 HENMT Head: Yes normocephalic and Yes atraumatic Ears: hearing grossly normal bilaterally General nose exam: Normal external nose present and No nasal discharge present Eyes General: appearance normal, both eyes and all related structures Neck Neck: Yes full ROM, Yes no lymphadenopathy, Yes no meningeal signs and Yes supple Chest Breast/axilla palpation: normal palpation of the breasts Resp Effort & Inspection: normal respiratory effort and able to speak in complete sentences Auscultation: clear to auscultation bilaterally Cardio Other: S1-S2 present regular rate and rhythm GI Palpation (GI): Soft to palpation, nontender, no guarding and no masses Auscultation: normal bowel sounds General: Yes no CVA tenderness and Yes deferred (Followed at [facility]) Back/Spine/Pelvis Back: no CVA tenderness and No back tenderness Skin General skin exam: no rashes or lesions noted Neuro General: patient oriented x3, gait normal, moves all extremities, no meningeal signs and no focal motor deficits Extrem General: Yes normal to inspection, Yes full ROM, Yes no joint enlargement, Yes no pedal edema and Yes normal gait Psych Appearance: grossly normal and well kempt Mental Status: mental status grossly normal Speech and movement: Normal speech and movement present Affect: normal affect Thought content: suicidality Results Reviewed Results Reviewed: Name: Kayli Gilmore Age/Sex: 34/F : 1990 Unit#: [id number] Attend Dr: Maryjo Barcenas MD Re10/29/24 Status: [facility]: SPEC : [id number] ALVIN: 10/29/24 STATUS: COMP REQ : [id number] RECD: 10/29/[address]: Maryjo Barcenas MD COMP: 10/29/24 ENTERED: 10/29/[address]: Generic ED Physician Physician,Unknown ORDERED: CMP, Lip, HCG Quant Test Result Flag Reference Sodium 138 135-145 mmol/L Potassium 3.6 3.3-5.1 mmol/L CL 108 96-108 mmol/L CO2 24 22-29 mmol/L Gap 10 L 12-20 BUN 6 L 9-16 mg/dL Creat 0.72 0.5-1.4 mg/dL Estimated CrCl 110.8 Provided height and weight: 165.1 cm, 72.5 kg. eGFR (calculated from the MDRD study equation) and eCrCl (calculated from the Cockcroft-Gault equation) are based on different parameters and may not yield comparable results. If eCrCl result is absurd, please check patient's height/weight. eGFR > 60 Chronic Kidney Disease: Estimated GFR < 60 mL/min/1.73m2 Severe Kidney Disease: Estimated GFR < 15 mL/min/1.73m2 Glucose, Random 92 60-115 mg/dL CA 9.1 8.4-10.2 mg/dL Total Bili 0.4 0.0-1.0 mg/dL AST (GOT) 20 5-31 U/L ALT (GPT) 18 0-31 U/L Protein, Total 7.2 6.5-8.0 g/dL Alb 4.2 3.5-5.0 g/dL Alk Phos 78 39-117 U/L Lipase 12 8-78 U/L HCG Quant < 2 mIU/mL Weeks post LMP Approximate hCG (Last Menstrual Period) Range (mIU/ml) 3 - 4 weeks 9 - 130 4 - 5 weeks 75 - 2,600 5 - 6 weeks 850 - 20,800 6 - 7 weeks 4000 - 100,200 7 - 12 weeks 11,500 - 289,000 12 - 16 weeks 18,300 - 137,000 16 - 29 weeks (2nd trimester) 1,400 - 53,000 29 - 41 weeks (3rd trimester) 940 - 60,000 The Cooley B-hCG assay is used for the early detection of ; it cannot be used to diagnose any condition unrelated to . If a B-hCG level is not supported by the clinical evidence, results should be confirmed by an alternative method (qualitative urine hCG, for example). Name: Kayli Gilmore Age/Sex: 34/F : 1990 Unit#: [id number] Attend Dr: Maryjo Barcenas MD Re10/29/24 Status: DEP Location: [facility] Disch: SPEC : [id number] ALVIN: 10/29/24 STATUS: COMP REQ : [id number] RECD: 10/29/[address]: Maryjo Barcenas MD COMP: 10/29/24 ENTERED: 10/29/[address] [facility] [address]: Generic ED Physician Physician,Unknown ORDERED: CBC Auto Diff Test Result Flag Reference WBC 9.5 4.8-10.8 X10*3/uL RBC 3.66 # L 4.20-5.50 X10*6/uL HGB 10.8 L 12.0-16.0 g/dl HCT 31.7 L 37.0-47.0 % MCV 86.6 80.0-98.0 fL MCH 29.5 27.0-33.0 pg MCHC 34.1 31.0-35.0 g/dl RDW 14.0 11.0-16.0 % PLT 421 H 160-400 X10*3/uL MPV 8.2 L 9.4-12.3 fL Neut Pct Auto 56.4 45-73 % ImGran Pct Auto 0.2 0.0-0.4 % Lymp Pct Auto 32.7 20-40 % [place] Pct Auto 6.8 2-11 % Eos Pct Auto 3.3 0-4 % Baso Pct Auto 0.6 0-2 % NRBC Pct Auto 0.0 0.0-0.2 /100WBC ANC Neut Abs # 5.4 2.0-8.3 x10*3/uL ImGran Abs Auto 0.02 0.00-0.03 X10*3/uL Lymph Abs Auto 3.1 1.2-4.9 X10*3/uL [place] Abs Auto 0.6 0.1-1.2 X10*3/uL Eos Abs Auto 0.3 0.0-0.4 X10*3/uL Baso Abs Auto 0.1 0.0-0.2 X10*3/uL NRBC Abs Auto 0.000 0.0-0.012 X10*3/uL RUN: 01/10/25 0116 PAGE 1 [facility] [address] [place] [id number] Mobile Unit Assistant: Russ Miller M.D. Specimen Inquiry Name: Kayli Gilmore Age/Sex: 34/F : 1990 [id number]#: [id number] Attend Dr: Giuseppe Duval MD Re07/14/24 Status: DEP [facility] Disch: SPEC : [id number] ALVIN: 07/14/24 STATUS: COMP REQ : [id number] RECD: 07/14/[address]: Giuseppe Duval MD COMP: 07/14/24 ENTERED: 07/14/[address]: ORDERED: Lipid Panel, Vitamin D 25-OH Test Result Flag Reference Triglyceride 106 <150 mg/dL Desirable Triglyceride: less than 150 mg/dL Borderline High Triglyceride 150-199 mg/dL High Triglyceride: 200-499 mg/dL Very High Triglyceride: greater than or equal to 5OO mg/dL Cholesterol 140 <200 mg/dL Desirable Cholesterol: less than 200 mg/dL Borderline High Cholesterol: 200-239 mg/dL High Cholesterol: greater than 239 mg/dL LDL Calculated 66 <100 mg/dL Desirable LDL: less than 100 mg/dL Near Optimal/Above Optimal LDL: 110-129 mg/dL Borderline High LDL: 130-159 mg/dL High LDL: 160-189 mg/dL Very High LDL: greater than or equal to 190 mg/dL HDL 53 >40 mg/dL Desirable HDL: greater than 40 mg/dL Note: This HDL assay may give artificially low results in patients with liver disease. Vitamin D 25-OH 10.8 L >30 ng/mL Health Based Reference Values* < 20 ng/mL Deficient 20-30 ng/mL Insufficient > 30 ng/mL Sufficient Coding Level of Care Code New Pt Prev Care 18-39yr(43191 Diagnoses Annual visit for general adult medical examination with abnormal findings Z00.01 Familial hypercholesterolemia E78.01 Acquired hypothyroidism E03.9 Hypothyroidism type: acquired Anemia D64.9 Hair thinning L65.9 Screening for Malignant Neoplasm of Skin Z12.83 PCOS (polycystic ovarian syndrome) E28.2 Major depressive disorder, recurrent episode with anxious distress F33.9 Multiple environmental allergies Z91.09 Mild intermittent asthma without complication J45.20 Asthma severity: mild Asthma persistence: intermittent Asthma complication type: uncomplicated Psoriasis L40.9 Advance directive discussed with patient Z71.89 Additional Codes Asthma Control Questionnaire - ACT Interpretation: Negative ([id number]) CHARO-7 Assessment Billing - CHARO-7 Assessment Tool: CHARO-7 Assessment 02120 ([id number]) PHQ-9 - 69718 - PHQ-9 Billing: Yes ([id number]) Vital Signs *Quality* - Advance Care Planning discussion: Completed/Scanned ([id number]) Vital Signs *Quality* - Time spent: 16-45 minutes ([id number]) Assessment & Plan Assessment & Plan (1) Annual visit for general adult medical examination with abnormal findings: Code(s): Z00.01 - Encounter for general adult medical examination with abnormal findings Plan: Reviewed recent fasting lab results with patient. Recommended dental visit every 6 months and regular eye exams, at least every 2 years. Take adequate calcium in diet and vitamin-D 3 at 2000 IU per cap once a day, in addition to weight-bearing exercises to help maintain good muscle tone and weight control. Instructed to do self-breast exam, and get yearly mammogram, starting at age 40. [address] Almanzar at [facility] for her routine Pap and pelvic exam. 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, patient currently on levothyroxine 88 mcg daily (4) Anemia: Code(s): D64.9 - Anemia, unspecified Plan: ordered vitamin B12 levels and evaluation for potential celiac disease already ordered by her endocrinologists, as it may contribute to malabsorption and anemia (5) Hair thinning: Code(s): L65.9 - Nonscarring hair loss, unspecified Category: Medical Plan: Likely due to anemia, advised to take iron supplements, ferrous sulfate available [id number]-dxeypdc 325 mg daily (6) Screening for Malignant Neoplasm of Skin: Code(s): Z12.83 - Encounter for screening for malignant neoplasm of skin Plan: Dermatology referral ordered (7) PCOS (polycystic ovarian syndrome): Code(s): E28.2 - Polycystic ovarian syndrome Category: Medical Plan: Currently on metformin ER 500 mg daily (8) Major depressive disorder, recurrent episode with anxious distress: Comment: Followed by [facility] Code(s): F33.9 - Major depressive disorder, recurrent, unspecified Category: Medical Plan: Followed by Psychiatry and sees therapist at [facility] (9) Multiple environmental allergies: Code(s): Z91.09 - Other allergy status, other than to drugs and biological substances Category: Medical Plan: Currently on cetirizine 10 mg once a day (10) Asthma: Code(s): J45.909 - Unspecified asthma, uncomplicated Category: Medical Qualifiers: Asthma severity: mild Asthma persistence: intermittent Asthma complication type: uncomplicated Qualified Code(s): J45.20 - Mild intermittent asthma, uncomplicated Plan: Has albuterol inhaler which she rarely needs to use, advised to get yearly flu vaccine COVID booster and pneumonia vaccine but patient declined getting any vaccines at present (11) Psoriasis: Code(s): L40.9 - Psoriasis, unspecified Category: Medical Plan: Referred to dermatology clinic (12) Advance directive discussed with patient: Code(s): Z71.89 - Other specified counseling Plan: Initiated the conversation about Advanced Directives. Advanced Directives help patients prepare for current and future decisions about their medical treatment and place of care. Discussed with patient that it is a process where a patients current condition and prognosis are reviewed, their wishes for information regarding their illness are elicited, and likely medical dilemmas are presented and options discussed. Healthcare proxy form completed today. The form can be amended as needed, reviewed yearly and make changes as needed Orders: Orders Vitamin B12 and Folate 01/03/25 D64.9 - Anemia, unspecified Referrals Dermatology Referral L65.9 - Nonscarring hair loss, unspecified, Z12.83 - Encounter for screening for malignant neoplasm of skin, Z87.2 - Personal history of diseases of the skin and subcutaneous tissue Medications: New albuterol sulfate 90 mcg/actuation (Ventolin HFA) 2 puffs inhalation Q6H PRN 8.5 grams 5RF shortness of breath or wheezing
--- OUTSIDE RECORDS SUMMARY | 2025-01-03 11:35 | XMS_ITS ---
Author Name [facility] Organization Unknown Care Team Organization Name Specialty Phone Email Start Date End Da RUST JOAN STEWART Primary Care 12/15/[id number]
--- OUTSIDE RECORDS SUMMARY | 2025-01-03 11:35 | XMS_ITS | Clinical Summary ---
Author Organization [facility] Address [address] [place] [address] Care Team Providers Care Yarn Conditioner Name Role Phone Margaret Hillman MD Primary [...] series) 2010 Pap Smear (Ages 21-65) 2012 HPV Vaccines (1 - 3-dose SCD M series) 2018 Influenza Vaccine 11/30/2024 COVID-19 Vaccine (1 - 2023-2 5 season) 2024 Pneumococcal Vaccine: Pediat nikki (0-5 Years) and At-Risk Patients (6 to 49 Years) Aged Out No longer eligible b ased on patient's age to complete [place] [id number] [employer] [facility] Care Teams Yarn Conditioner Relationship Specialty Start Date End Date Margaret iHllman MD [address] [place] [id number] PCP - General Internal Medicine 08/19/21
--- OUTSIDE RECORDS SUMMARY | 2025-01-03 11:35 | XMS_ITS | Clinical Summary ---
Author Organization [facility] Address [address] [place] [address] Care Team Providers Care Student Admissions Clerk Name Role Phone Cody Solis MD Primary Care Provider [phone] Allergies Active Allergy Reactions Criticality Noted Date [...] 96 02/14/2023 8:20 AM EDT Temperature 35.9 C (96.7 F) 02/14/2023 8:20 AM EDT Respiratory Rate 18 02/14/2023 8:20 AM EDT [...] age to complete this topic Care Teams Student Admissions Clerk Relationship Specialty Start Date End Date Coyd Solis MD PCP - General Internal Medicine 12/02/22
== END 2025-01-03 11:31 | disposition home or self-care (01) ==
LOC: HO.HMCC 10:17
PROVIDERS: Visit Provider Internal Medicine
DX: Z00.01 Encounter for general adult medical examination with abnormal findings (principal); E78.01 Familial hypercholesterolemia; E03.9 Hypothyroidism, unspecified; D64.9 Anemia, unspecified; L65.9 Nonscarring hair loss, unspecified; Z12.83 Encounter for screening for malignant neoplasm of skin; E28.2 Polycystic ovarian syndrome; F33.9 Major depressive disorder, recurrent, unspecified; Z91.09 Other allergy status, other than to drugs and biological substances; J45.20 Mild intermittent asthma, uncomplicated; L40.9 Psoriasis, unspecified; Z71.89 Other specified counseling

== ENCOUNTER → 2025-01-03 10:17 | Outpatient (BNVA) | payer OTHER, SELFPAY | PROVIDERS: Visit Provider Internal Medicine | DX: Z00.01 Encounter for general adult medical examination with abnormal findings (principal); E55.9 Vitamin D deficiency, unspecified; K90.0 Celiac disease; E03.9 Hypothyroidism, unspecified; D64.9 Anemia, unspecified; M94.0 Chondrocostal junction syndrome [Tietze]; E78.01 Familial hypercholesterolemia; L65.9 Nonscarring hair loss, unspecified; E28.2 Polycystic ovarian syndrome; F33.9 Major depressive disorder, recurrent, unspecified; J45.20 Mild intermittent asthma, uncomplicated; L40.9 Psoriasis, unspecified; Z71.89 Other specified counseling; Z91.09 Other allergy status, other than to drugs and biological substances | CPT/HCPCS: 96127; 96160 ==

== ENCOUNTER 2025-01-25 14:39 | Outpatient (AMB) | payer OTHER, SELFPAY ==
--- NOTE | 2025-01-25 14:41 | AM.OFFWIN_ITS ---
Intake Vital Signs 01/25/25 14:42 Height 5 ft 5 in Weight 156 lb BMI 26.0 BP 104/70 Blood Pressure Location Rt brachial Position Sitting Respiration 16 Pulse 84 Pulse Source Pulse Oximeter Temp 97.7 F Temp Source Oral Pulse Oximetry (%) 99 Oxygen Delivery Method Room Air Intake Visit Reasons: EP-b/l eyes itching Patient Tobacco Use Status: Never used Tobacco Gut Carrier Required: No Accompanied by: Self / Same As Patient Allergies pantoprazole Allergy (Unknown, Verified 01/25/25 14:42) chest pain diphenhydramine (From Benadryl) Allergy (Verified 01/25/25 14:42) Hives esomeprazole (From NEXIUM) Adverse Reaction (Mild, Verified 01/25/25 14:42) DIARRHEA sumatriptan Adverse Reaction (Verified 01/25/25 14:42) Migraine birch trees Allergy (Unknown, Uncoded 01/10/25 00:30) Sneezing oak trees Allergy (Unknown, Uncoded 01/10/25 00:30) nasal congestion SEASONAL ALLERGIES Allergy (Unknown, Uncoded 01/10/25 00:30) UNKNOWN HPI HPI Comments History of Present Illness Details History of Present Illness - The patient is a 34-year-old female pr esenting with symptoms of eye irritation and discharge of both eyes, Left worse than right, for a few days. - The patient reported that her eyes bec jason itchy and irritated yesterday, initially suspecting allergies. - The discharge was white and yellow, wi th the left eye being more affected. - The patient experienced swelling of th e lower eyelid and crusting of the eyes upon waking. - The symptoms developed rapidly, with c onstant discharge noted. - The patient cleaned the eyes, but symp toms persisted. Physical Exam General: Cooperative, healthy appearing, comfortable, no acute distress and well developed Orientation: Patient oriented x3 Limitations: No limitations Head: Normal to inspection Ears: Hearing grossly normal bilaterally Nose: Normal External nose present Face and sinus: Normal facial exam Eyes: Both eyes appear with white and yellow crusty discharge, bottom lid with edema, left eye worse than right,no injection bilaterally Neck: Normal visual inspection and Yes full ROM Respiratory: Normal respiratory effort and able to speak in complete sentences. Skin: No rashes or lesions noted Neuro: Patient oriented x3 Extremities: Normal to inspection Review of Systems - Eyes: Reports itching, irritation, and discharge. Denies pain and vision changes. All systems reviewed and are unremarkable except as noted in HPI [facility] Medical History History of obesity Hair thinning Anemia Psoriasis Asthma Migraine Major depressive disorder, recurrent episode with anxious distress Familial hypercholesterolemia Vitamin D deficiency PCOS (polycystic ovarian syndrome) Hypothyroidism Allergy to cats Multiple environmental allergies Surgical History History of removal of ovarian cyst Family History Father Hyperlipidemia Mother Hyperlipidemia Hypertension Diabetes CVD (cardiovascular disease) Social History Household Members: Family Household Members Other:: None Housing: House Alcohol intake: never Patient Tobacco Use Status: Never used Tobacco e-Cigarette/Vaping Use: Never Used service: No Current occupational status: unemployed Cognitive needs: No Hearing needs: No Vision needs: Yes Physical Exam Vital Signs: Last Vital Signs Temp 97.7 F 01/25/25 14:42 Pulse 84 01/25/25 14:42 Resp 16 01/25/25 14:42 BP 104/70 01/25/25 14:42 Pulse Ox 99 01/25/25 14:42 Oxygen Delivery Method Room Air 01/25/25 14:42 BMI result Body Mass Index 26.0 Assessment & Plan Assessment & Plan (1) Conjunctivitis: Code(s): H10.9 - Unspecified conjunctivitis Qualifiers: Conjunctivitis type: acute Acute conjunctivitis type: unspecified Laterality: bilateral Qualified Code(s): H10.33 - Unspecified acute conjunctivitis, bilateral Plan: Plan Patient was informed and verbally consented to the use of an ambient scribe for clinic note documentation during this visit. Allergic Conjunctivitis VS Bacterial Conjunctivitis - Considered allergic as most likely diagnosis due to itching and irritation and bilateral. - Recommended Pataday drops as a backup plan if bacterial treatment is ine ffective. - However with yellow-white discharge/crusting, could be bacterial, will send erythromycin ointment to be applied to both eyes four times a day for seven days. - Advised to refrain from using eye makeup and discard any potentially contaminated products. - If erythromycin ointment is ineffective, change to Pataday drops. - If eye pain or visual changes occur, see your Ophthmalogist or PCP. Medications: New erythromycin Apply to left eye 4 times a day while awake 0.5 inches ophthalmic (eye) QID 3.5 grams 0RF Coding Level of Care Code Est Pt Level 3 (81130) Diagnoses Acute conjunctivitis of both eyes, unspecified acute conjunctivitis type H10.33 Conjunctivitis type: acute Acute conjunctivitis type: unspecified Laterality: bilateral
[2025-01-25 14:42] VITALS: BP 104/70; PULSE 84; RESP 16; TEMP 36.5; O2SAT 99; BMI 26.0
--- OUTSIDE RECORDS SUMMARY | 2025-01-25 15:32 | XMS_ITS | Clinical Summary ---
Author Organization [facility] Address [address] [place] [address] Care Team Providers Care Cell Tender Name Role Phone Cody Solis MD Primary Care Provider [phone] Allergies Active Allergy Reactions Criticality Noted Date [...] age to complete this topic Care Teams Cell Tender Relationship Specialty Start Date End Date Cody Solis MD PCP - General Internal Medicine 12/02/22
--- OUTSIDE RECORDS SUMMARY | 2025-01-25 15:32 | XMS_ITS | Clinical Summary ---
Author Organization [facility] Address [address] [place] [address] Care Team Providers Care Horseback Riding Instructor Name Role Phone Margaret Hillman MD Primary Care Provider [phone] Social History Tobacco Use Types Packs/Day Years [...] Pap Smear (Ages 21-65) 2012 Influenza Vaccine 11/30/2024 COVID-19 Vaccine (1 - 2023-2 5 season) 2024 HPV Vaccines (No Doses Required) Completed Pneumococcal Vaccine: Pediat nikki (0-5 Years) and At-Risk Patients (6 to 49 Years) Aged Out No longer eligible b ased on patient's age to complete this topic Insurance [place] [id number] [employer] [place] Care Teams Horseback Riding Instructor Relationship Specialty Start Date End Date Margaret Hillman MD [address] [place] [address] PCP - General Internal Medicine 08/19/21
== END 2025-01-25 16:16 | disposition home or self-care (01) ==
PROVIDERS: PCP Internal Medicine; Visit Provider Physician Assistant
DX: H10.33 Unspecified acute conjunctivitis, bilateral (principal)

== ENCOUNTER 2025-02-22 08:20 | Outpatient (REF) | payer OTHER, SELFPAY ==
[2025-02-22 10:36] LABS: Cholesterol 328 mg/dL (<200); HDL Cholesterol 59 mg/dL (>40); Triglycerides 129 mg/dL (<150)
[2025-02-22 11:07] LABS: Folate 3.6 ng/mL (> or = 4.0); Vitamin B12 212 pg/mL (200-900)
== END 2025-02-22 08:21 | disposition home or self-care (01) ==
LOC: HO.HMGCLDS 08:20
PROVIDERS: Absent Provider Internal Medicine Endocrinology, Diabetes & Metabolism; PCP Internal Medicine; Visit Provider Internal Medicine
DX: Z13.6 Encounter for screening for cardiovascular disorders (principal); E55.9 Vitamin D deficiency, unspecified; D64.9 Anemia, unspecified
CPT/HCPCS: 36415; 80061; 82306; 82607; 82746

== ENCOUNTER 2025-03-04 16:23 | Outpatient (AMB) | payer OTHER, SELFPAY ==
[2025-03-04 16:26] VITALS: BP 116/68; PULSE 104; O2SAT 100; BMI 25.7
--- NOTE | 2025-03-04 16:26 | A.OFFVIS_ITS ---
Vital Signs 03/04/25 16:26 Height 5 ft 5 in Weight 154 lb 5.177 oz BMI 25.7 BP 116/68 Blood Pressure Location Rt brachial Position Sitting Pulse 104 H Pulse Source Pulse Oximeter Pulse Oximetry (%) 100 Oxygen Delivery Method Room Air Intake Visit Reasons: f/u familial hypercholesterolemia Intake Note: Patient present today for familial hypercholesterolemia follow up visit. Filter Tank Tender Required: No Accompanied by: Self / Same As Patient Allergies pantoprazole Allergy (Unknown, Verified 03/04/25 16:31) chest pain diphenhydramine (From Benadryl) Allergy (Verified 03/04/25 16:31) Hives esomeprazole (From NEXIUM) Adverse Reaction (Mild, Verified 03/04/25 16:31) DIARRHEA sumatriptan Adverse Reaction (Verified 03/04/25 16:31) Migraine birch trees Allergy (Unknown, Uncoded 03/04/25 16:31) Sneezing oak trees Allergy (Unknown, Uncoded 03/04/25 16:31) nasal congestion SEASONAL ALLERGIES Allergy (Unknown, Uncoded 03/04/25 16:31) UNKNOWN HPI Comments Details: 34 YO Female with PMHx HLD and Hypothyroidism who is seen in F/U for HLD, Hypothyroidism . ?1) Hypothyroidism: ?First diagnosed with Hypothyroidism in April 2014 with labs revealing TSH >100. This occured shortly after her with her twins. TSH was checked during the and was WNL. A few months later she was having significant symptoms of hypothyroidism and labs were repeated revealing TSH >100. She was started on Levothyroxine 100 mcg PO daily. 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 Labs later revealed overreplacement, so levothyroxine was decreased. She remains on levothyroxine 88 mcg PO daily now. ?Menses are regular. ?Denies using Biotin ?She did have a thyroid US that was read as a multinodular thyroid. Images were independently reviewed and this represents a lonnie gland with no discrete nodules, just pseudonodules. She denies any compressive symptoms currently. ?2) HLD: ?Was diagnosed with HLD at the age of 19. She was on this medication from the age of [age], and this was stopped during . She resumed it briefly in between pregnancies from [id number], but then stopped due to another . She just stopped in January 2018 and shortly after presented to us. ?She did have elevated Apo B levels, and history consistent with familial HLD. She meets this diagnosis based on criteria. She was started on Atorvastatin 40 mg PO daily, but LDL remained significantly elevated at 229. She was changed to Atorvastatin 80 mg PO daily and Zetia 10 mg PO daily at that time. We attempted to get Praluent covered for her, but this was consistently denied by her insurance. ?Repeat lipid panel reveals LDL still elevated >200. She also reports significant myalgias to the point she is unable to sleep at night. ?She does have a significant family history of premature CAD in her mother with her first MA in her 40's, and also her Grandfather. ?She is not interested in additional pregnancies. She is using abstinence or condoms for contraception. She was referred to Cardiology and was referred for coronary artery calcium scoring, Currently taking Repatha 140 mg Q 2 weeks ?Thyroid US: ?02/20/2021 Right Thyroid Lobe: 4.0 x 1.4 x 0.9 cm, volume 2.5 mL. Previously 4.5 x 1.5 x 1.2 cm, volume 4.2 mL. Parenchyma: The gland echotexture is heterogeneous. Thyroid vascularity is increased. Left Thyroid Lobe: 4.0 x 1.3 x 1.5 cm, volume 4.1 mL. Previously 4.2 x 1.1 x 1.5 cm, volume 3.6 mL. Parenchyma: The gland echotexture is heterogeneous. Thyroid vascularity is increased. Isthmus: 0.17 cm in maximum AP dimension. Previously 0.3 cm. Comparison of the nodules with prior exam is difficult. Estimated total number of nodules greater than or equal to 1 cm: 0. Fire Alarm Mechanic nodules versus areas of gland heterogeneity are described as follows: 1.? Location: Right inferior. ?? ? Size: 0.5 x 0.5 x 0.6 cm, volume 0.1 mL. ?? ? Previously: Not seen on the previous study. ?? ? Nodule characteristics: ?? ? Composition: Spongiform (0). ?? ? Echogenicity: Anechoic (0). ?? ? Shape: Not taller than wide (0). ?? ? Margins: Smooth (0). ?? ? Echogenic Foci: None (0). ? ACR TI-RADS total points: 0 ?? ? ACR TI-RADS category: 1 ?? ? 2.? Location: Right inferior. ?? ? Size: 0.7 x 0.5 x 0.5 cm, volume 0.1 mL. ?? ? Previously: 0.8 x 0.5 x 0.5 cm, volume 0.1 mL. ?? ? Nodule characteristics: ?? ? Composition: Spongiform (0). ?? ? Echogenicity: Anechoic (0). ?? ? Shape: Not taller than wide (0). ?? ? Margins: Smooth (0). ?? ? Echogenic Foci: None (0). ? ACR TI-RADS total points: 0 ?? ? ACR TI-RADS category: 1 ? Significant change in size (>/= 20% in 2 dimensions and minimal increase of 2 mm or 50% or greater increase in volume): ?? ? Change in features: ?? ? Change in ACR TI-RADS risk category: 3.? Location: Left mid. ?? ? Size: 0.6 x 0.61 x 0.4 cm, volume 0.1 mL. ?? ? Previously: 0.5 x 0.4 x 0.4 cm, volume 0.04 mL. ?? ? Nodule characteristics: ?? ? Composition: Spongiform (0). ?? ? Echogenicity: Anechoic (0). ?? ? Shape: Not taller than wide (0). ?? ? Margins: Smooth (0). ?? ? Echogenic Foci: None (0). ? ACR TI-RADS total points: 0 ?? ? ACR TI-RADS category: 1 ? Significant change in size (>/= 20% in 2 dimensions and minimal increase of 2 mm or 50% or greater increase in volume): ?? ? Change in features: ?? ? Change in ACR TI-RADS risk category: NODES: See separate soft tissue neck ultrasound performed the same day. US Soft Tissue Head and Neck: 02/20/2021 FINDINGS: THYROID BED: Prior thyroidectomy. No residual thyroid tissue demonstrated in the thyroid bed. No cystic or solid nodules demonstrated in the thyroid bed. RIGHT NECK SOFT TISSUES: Scattered nodes are present bilaterally. The largest node on the right level 2 and demonstrates cortical thickening. Lymph nodes otherwise demonstrate normal architecture with normal fatty hilus, normal cortical thickness, and no cystic change or calcification. No abnormal color flow. The largest nodes are as follows: Level 2: 2.4 x 0.9 x 1.5 cm.? Cortical thickening otherwise normal ras architecture. Level 2:1.4 x 0.5 x 1.9 cm. Normal abdominal architecture. LEFT NECK SOFT TISSUES: Scattered architecturally normal nodes are present. The nodes show normal fatty hilus, normal cortical thickness, and no cystic change or calcification. No abnormal color flow. The largest nodes are as follows: Level 1B: 2.1 x 0.6 x 1.4 cm.? Normal ras architecture. US/US soft tiss head and/or neck IMPRESSION: 1. Bilateral cervical lymphadenopathy. There are 3 enlarged lymph nodes, one of which demonstrates abnormal ras architecture with cortical thickening. ? 2. If clinically indicated further evaluation of the neck soft tissues and nodes may be performed with CT soft tissue neck with intravenous contrast. Labs: Laboratory Tests 05/31/22 07/19/22 07/19/22 09:33 09:53 09:53 Creatinine 0.87 Estimated GFR > 60 LDL Cholesterol Direct 147 H 25-OH Vitamin D Total 11.0 TSH 2.91 Free T4 0.80 - Mounjaro: Utilized for obesity management, with recent dose adjustments. Now on 7.5 5 mg Qwkly - Levothyroxine: For hypothyroidism. - Labs: LDL cholesterol previously noted at 8 and more recently at 66. Vitamin D level in single digits, improving to 10.8. - Tests and Diagnostics: History of elevated free testosterone, assessed in 2019. [facility] Medical History History of obesity Hair thinning Anemia Psoriasis Asthma Migraine Major depressive disorder, recurrent episode with anxious distress Familial hypercholesterolemia Vitamin D deficiency PCOS (polycystic ovarian syndrome) Hypothyroidism Allergy to cats Multiple environmental allergies Surgical History History of removal of ovarian cyst Family History Father Hyperlipidemia Mother Hyperlipidemia Hypertension Diabetes CVD (cardiovascular disease) Social History Household Members: Family Household Members Other:: None Housing: House Alcohol intake: never Patient Tobacco Use Status: Never used Tobacco e-Cigarette/Vaping Use: Never Used service: No Current occupational status: unemployed Cognitive needs: No Hearing needs: No Vision needs: Yes Physical Exam Vital Signs: Last Vital Signs Pulse 104 H 03/04/25 16:26 BP 116/68 03/04/25 16:26 Pulse Ox 100 03/04/25 16:26 Oxygen Delivery Method Room Air 03/04/25 16:26 BMI result Body Mass Index 25.7 Assessment & Plan Assessment & Plan (1) Familial hypercholesterolemia: Code(s): E78.01 - Familial hypercholesterolemia Category: Medical Plan: Patient has a history of familial hypercholesterolemia and has been treated with 1. Hyperlipidemia Resuming Repatha exclusively to monitor LDL management efficiency, reducing associated statin side effects. Will review lipid panels in 8 weeks (2) Vitamin D deficiency: Code(s): E55.9 - Vitamin D deficiency, unspecified Category: Medical Plan: Resolved (3) Hypothyroidism: Code(s): E03.9 - Hypothyroidism, unspecified Category: Medical Qualifiers: Hypothyroidism type: acquired Qualified Code(s): E03.9 - Hypothyroidism, unspecified Plan: Currently on 88 mcg levothyroxine. Clinically and biochemically euthyroid Plan is to c check TSH and free T4 and adjust levothyroxine accordingly (4) Androgenic alopecia: Code(s): L64.9 - Androgenic alopecia, unspecified Plan: Not addressed this visit (5) Obesity: Code(s): E66.9 - Obesity, unspecified Category: Medical Plan: We will resume Zepbound 7.5 mg Q weekly Orders: Orders Thyroid Stimulating Hormone 4 Weeks E03.9 - Hypothyroidism, unspecified, E78.01 - Familial hypercholesterolemia Lipid Panel 8 Weeks E03.9 - Hypothyroidism, unspecified, E78.01 - Familial hypercholesterolemia Free T4 (Free Thyroxine) 4 Weeks E03.9 - Hypothyroidism, unspecified, E78.01 - Familial hypercholesterolemia Medications: Changed From evolocumab (Repatha SureClick) subcut To evolocumab (Repatha SureClick) 140 mg subcut Q2W 2 mL 4RF Coding Level of Care Code Est Pt Level 3 (33454) Diagnoses Familial hypercholesterolemia E78.01 Vitamin D deficiency E55.9 Acquired hypothyroidism E03.9 Hypothyroidism type: acquired Androgenic alopecia L64.9 Obesity E66.9
--- OUTSIDE RECORDS SUMMARY | 2025-03-04 17:15 | XMS_ITS | Clinical Summary ---
Author Organization [facility] Address [address] [place] [address] Care Team Providers Care Engine Oiler Name Role Phone Cody Solis MD Primary Care Provider [phone] Allergies Active Allergy Reactions Criticality Noted Date [...] age to complete this topic Care Teams Engine Oiler Relationship Specialty Start Date End Date Cody Solis MD PCP - General Internal Medicine 12/02/22
--- OUTSIDE RECORDS SUMMARY | 2025-03-04 17:15 | XMS_ITS | Clinical Summary ---
Author Organization [facility] Address [address] [place] [address] Care Team Providers Care Boxcar Weigher Name Role Phone Margaret Hillman MD Primary [...] to complete this topic [place] [address] [employer] Care Teams Boxcar Weigher Relationship Specialty Start Date End Date Margaret Hillman MD [address] [place] [address] PCP - General Internal Medicine 08/19/21
== END 2025-03-04 16:45 | disposition home or self-care (01) ==
LOC: HO.ENCR 16:24
PROVIDERS: PCP Internal Medicine; Visit Provider Internal Medicine Endocrinology, Diabetes & Metabolism
DX: E78.019 Familial hypercholesterolemia, unspecified (principal); E55.9 Vitamin D deficiency, unspecified; E03.9 Hypothyroidism, unspecified; L64.9 Androgenic alopecia, unspecified
CPT/HCPCS: 99213

== ENCOUNTER 2025-03-18 12:45 | Outpatient (AMB) | payer OTHER, SELFPAY ==
[2025-03-18 13:01] VITALS: BP 100/78; PULSE 90; TEMP 36.7; O2SAT 97; BMI 25.6
--- NOTE | 2025-03-18 13:01 | AM.OFFWIN_ITS ---
Intake Vital Signs 03/18/25 13:01 Height 5 ft 5 in Weight 154 lb BMI 25.6 BP 100/78 Blood Pressure Location Lt brachial Position Sitting Pulse 90 Pulse Source Pulse Oximeter Temp 98.0 F Temp Source Oral Pulse Oximetry (%) 97 Oxygen Delivery Method Room Air Intake Visit Reasons: EP-sore throat, cough, chest pain, body ache Intake Note: Patient presents c/o sore throat, fatigue, body aches, cough, runny nose, chest pain x3 days. Patient Tobacco Use Status: Never used Tobacco Allergies pantoprazole Allergy (Unknown, Verified 03/18/25 13:05) chest pain diphenhydramine (From Benadryl) Allergy (Verified 03/18/25 13:05) Hives esomeprazole (From NEXIUM) Adverse Reaction (Mild, Verified 03/18/25 13:05) DIARRHEA sumatriptan Adverse Reaction (Verified 03/18/25 13:05) Migraine birch trees Allergy (Unknown, Uncoded 03/18/25 13:05) Sneezing oak trees Allergy (Unknown, Uncoded 03/18/25 13:05) nasal congestion SEASONAL ALLERGIES Allergy (Unknown, Uncoded 03/18/25 13:05) UNKNOWN Do you need a note to return to daycare/school/sports/work: No HPI HPI Comments History of Present Illness Details 34-year-old female presents with upper r espiratory infection symptoms for 3 days. Reports sore throat, fatigue, body aches, cough, runny nose, and intermittent chest pain with coughing. Notes low-grade fevers at home with associated chills. Denies nausea or vomiting but endorses poor appetite. has similar symptoms at home. Has been taking acetaminophen with some relief. No recent travel. No known COVID/flu exposures reported. [facility] Medical History (Updated 03/18/25 @ 14:01 by Molly Charles NP) Acute pharyngitis History of obesity Hair thinning Anemia Psoriasis Asthma Migraine Major depressive disorder, recurrent episode with anxious distress Familial hypercholesterolemia Vitamin D deficiency PCOS (polycystic ovarian syndrome) Hypothyroidism Allergy to cats Multiple environmental allergies Surgical History History of removal of ovarian cyst Family History Father Hyperlipidemia Mother Hyperlipidemia Hypertension Diabetes CVD (cardiovascular disease) Social History Household Members: Family Household Members Other:: None Housing: House Alcohol intake: never Patient Tobacco Use Status: Never used Tobacco e-Cigarette/Vaping Use: Never Used service: No Current occupational status: unemployed Cognitive needs: No Hearing needs: No Vision needs: Yes Review of Systems Const All systems reviewed & are unremarkable except as noted in HPI and below Physical Exam Vital Signs: Last Vital Signs Temp 98.0 F 03/18/25 13:01 Pulse 90 03/18/25 13:01 BP 100/78 03/18/25 13:01 Pulse Ox 97 03/18/25 13:01 Oxygen Delivery Method Room Air 03/18/25 13:01 BMI result Body Mass Index 25.6 Const General: no acute distress Nutritional Appearance: overweight Orientation/consciousness: patient oriented x3 HEENT Head: Yes normocephalic Ears: external ears normal and TM abnormal bulging bilateral and with fluid behind the TM bilateral General nose exam: Normal external nose present Face and sinus: Yes sinuses nontender Mouth: moist mucous membranes and Abnormal oral and palatal mucosa present erythematous; not edematous, no white patches and no vesicles Throat: Yes uvula midline and Yes abnormal tonsil (Enlarged Tonsils +2) Resp Effort & Inspection: normal respiratory effort and able to speak in complete sentences Auscultation: clear to auscultation bilaterally, no crackles, no rales, no rhonchi and no wheezes Cardio Heart sounds: S1 normal heart sound present and S2 normal heart sound present Neuro General: patient oriented x3, gait normal and moves all extremities Psych Speech and movement: Normal speech and movement present Results AMB Rapid Strep AMB Rapid Strep Negative Last Edit by Valencia Mcarthur CMA on 03/18/25 13: 54 Results Reviewed Results Reviewed: Laboratory Last Values Strep Scn Rapid Clinic Negative 03/18/25 13:53 Assessment & Plan Assessment & Plan (1) Acute pharyngitis: Code(s): J02.9 - Acute pharyngitis, unspecified Plan: Sore throat likely secondary to viral illness. SARs to R/O Flu/COVID/RSV Continue supportive care: Acetaminophen or ibuprofen PRN for pain/fever. Increase fluids, rest, warm salt water gargles, humidifier. Honey PRN for cough. Return precautions: worsening chest pain, SOB, persistent high fevers, inability to tolerate PO, dehydration, or symptoms >10?14 days. Orders: Orders AMB Rapid Strep Screen Today Z13.9 - Encounter for screening, unspecified SARS-CoV2/FLU/RSV Today J02.9 - Acute pharyngitis, unspecified Coding Level of Care Code Est Pt Level 4 (08234) Diagnoses Acute pharyngitis J02.9 Time Spent (min) 20
== END 2025-03-18 14:10 | disposition home or self-care (01) ==
PROVIDERS: PCP Internal Medicine; Visit Provider Nurse Practitioner Family
DX: J02.9 Acute pharyngitis, unspecified (principal); Z13.9 Encounter for screening, unspecified

== ENCOUNTER 2025-03-18 12:45 | Outpatient (REF) | payer OTHER, SELFPAY ==
[2025-03-18 17:42] LABS: Resp Syncy Virus RNA Qual PCR NEGATIVE (Negative); SARS COV2 PCR INHOUSE NEGATIVE (Negative)
== END 2025-03-18 12:46 | disposition home or self-care (01) ==
LOC: HO.LAB 12:45
PROVIDERS: PCP Internal Medicine; Visit Provider Nurse Practitioner Family
DX: J02.9 Acute pharyngitis, unspecified (principal); Z13.89 Encounter for screening for other disorder
CPT/HCPCS: 87637; 87880

== ENCOUNTER 2025-03-20 07:58 | Outpatient (AMB) | payer OTHER, SELFPAY ==
[2025-03-20 08:01] VITALS: BP 98/60; PULSE 92; TEMP 36.5; O2SAT 98; BMI 25.6
--- NOTE | 2025-03-20 08:01 | AM.OFFWIN_ITS ---
Intake Vital Signs 03/20/25 08:01 Height 5 ft 5 in Weight 154 lb BMI 25.6 BP 98/60 Blood Pressure Location Lt brachial Position Sitting Pulse 92 Pulse Source Pulse Oximeter Temp 97.7 F Temp Source Oral Pulse Oximetry (%) 98 Oxygen Delivery Method Room Air Intake Visit Reasons: EP-sob, fever, cough Intake Note: Patient returns c/o difficulty breathing, chest pain when inhaling/breathing deeply since last night. Patient seen on 03/18/25. Patient Tobacco Use Status: Never used Tobacco Allergies pantoprazole Allergy (Unknown, Verified 03/20/25 08:03) chest pain diphenhydramine (From Benadryl) Allergy (Verified 03/20/25 08:03) Hives esomeprazole (From NEXIUM) Adverse Reaction (Mild, Verified 03/20/25 08:03) DIARRHEA sumatriptan Adverse Reaction (Verified 03/20/25 08:03) Migraine birch trees Allergy (Unknown, Uncoded 03/20/25 08:03) Sneezing oak trees Allergy (Unknown, Uncoded 03/20/25 08:03) nasal congestion SEASONAL ALLERGIES Allergy (Unknown, Uncoded 03/20/25 08:03) UNKNOWN HPI HPI Comments History of Present Illness Details History - The patient is a 34-year-old female pr esenting with cough and SOB. - She has a history of asthma and report ed a fever and cough beginning on Tuesday. - COVID-19 test was negative in the offi ce Tuesday, along with flu and RSV. - She experienced difficulty breathing l ast night and used her albuterol inhaler. - Despite inhaler use, she continues to have chest pain and dyspnea. - The cough has worsened, accompanied by fever and body aches, though the body aches have resolved. - The cough is dry, with a sensation of obstruction in the throat. - She reported a fever of 100.6?F at [facility]. - She feels weak but is maintaining hydr ation. - She denies ear pain, sore throat, BREWER, abd pain, n/v/d, sick contacts, smoking, or travel. Physical Exam General: Cooperative, healthy appearing, comfortable and no acute distress Orientation/consciousness: Patient oriented x3 Limitations: No limitations Head: Normal to inspection Ears: Hearing grossly normal bilaterally, external ears normal and TM's slightly red Nose: Normal external nose present, normal nares present, and no nasal discharge present. Face and sinus: Sinuses nontender to palpation. Mouth: Normal oral and palatal mucosa present and moist mucous membranes noted. Throat: Tonsils normal. Uvula is midline. Posterior oropharynx with erythema and no exudates. Eyes: Appearance normal, both eyes and all related structures Neck: Normal visual inspection, full ROM. No lymphadenopathy noted. Respiratory: Clear to auscultation bilaterally. Normal respiratory effort, able to speak in complete sentences. No respiratory distress, not tachypneic, no tripod positioning and no use of accessory muscles. Cardiovascular: Regular rate and rhythm. Normal S1 and S2 Skin: No rashes or lesions noted Patient was informed and verbally consented to the use of an ambient scribe for clinic note documentation during this visit [facility] Medical History (Updated 03/18/25 @ 14:01 by Molly Charles NP) Acute pharyngitis History of obesity Hair thinning Anemia Psoriasis Asthma Migraine Major depressive disorder, recurrent episode with anxious distress Familial hypercholesterolemia Vitamin D deficiency PCOS (polycystic ovarian syndrome) Hypothyroidism Allergy to cats Multiple environmental allergies Surgical History History of removal of ovarian cyst Family History Father Hyperlipidemia Mother Hyperlipidemia Hypertension Diabetes CVD (cardiovascular disease) Social History Household Members: Family Household Members Other:: None Housing: House Alcohol intake: never Patient Tobacco Use Status: Never used Tobacco e-Cigarette/Vaping Use: Never Used service: No Current occupational status: unemployed Cognitive needs: No Hearing needs: No Vision needs: Yes Review of Systems Const All systems reviewed & are unremarkable except as noted in HPI and below Physical Exam Vital Signs: Last Vital Signs Temp 97.7 F 03/20/25 08:01 Pulse 92 03/20/25 08:01 BP 98/60 03/20/25 08:01 Pulse Ox 98 03/20/25 08:01 Oxygen Delivery Method Room Air 03/20/25 08:01 BMI result Body Mass Index 25.6 Office Procedures Nebulizer Treatment Nebulizer Treatment 02250-Quuoypuvr/MDI RX initial, or Nebulizer Subsequent Treatment Office Meds ipratropium 0.5 mg-albuterol 3 mg (2.5 mg base)/3 mL nebulization soln Performing Provider: Rachna Grissom PA-C Performing Location: [facility] Administered by: Rachna Grissom PA-C on 03/20/25 08:34 Dose Route Admin Location Dispensed Lot Number Expiration Date NDC [employer] 3 mL inhalation 3 mL [id number] 11/29/26 58311-356-89 [employer] Assessment & Plan Assessment & Plan (1) SOB (shortness of breath): Code(s): R06.02 - Shortness of breath (2) Cough: Code(s): R05.9 - Cough, unspecified Qualifiers: Cough type: acute Qualified Code(s): R05.1 - Acute cough Plan Most likely asthma exacerbation vs URI vs pneumonia vs viral illness plan - Continue using albuterol inhaler as needed for symptom relief. - Consider nebulizer treatment if symptoms persist. - Chest X-ray recommended to confirm diagnosis. - Consider antibiotic therapy if pneumonia is confirmed. - prednisone burst for 5 days - tylenol or motrin as needed - tessalon perles as needed for cough - follow up with PCP Orders: Orders AMB Nebulizer Treatment Today J45.901 - Unspecified asthma with (acute) exacerbation XR chest 2V Today R05.9 - Cough, unspecified Coding Level of Care Code Est Pt Level 4 (00090) Diagnoses SOB (shortness of breath) R06.02 Acute cough R05.1 Cough type: acute CPT Codes Nebulizer Treatment - Nebulizer Treatment, initial or subsequent: 34892- Nebulizer/MDI RX initial, or Nebulizer Subsequent Treatment ([id number])
--- OUTSIDE RECORDS SUMMARY | 2025-03-20 15:29 | XMS_ITS | Clinical Summary ---
Author Organization [facility] Address [address] [place] [address] Care Team Providers Care Physician General Internal Medicine Name Role Phone Cody Solis MD Primary Care Provider [phone] Allergies Active Allergy Reactions Criticality Noted Date [...] age to complete this topic Care Teams Physician General Internal Medicine Relationship Specialty Start Date End Date Cody Solis MD PCP - General Internal Medicine 12/02/22
--- OUTSIDE RECORDS SUMMARY | 2025-03-20 15:29 | XMS_ITS | Clinical Summary ---
Author Organization [facility] Address [address] [place] [address] Care Team Providers Care Business Strategist Name Role Phone Margaret Hillman MD Primary [...] to complete this topic Insurance [place] [phone] [employer] [place] Care Teams Business Strategist Relationship Specialty Start Date End Date Margaret Hillman MD [address] [place] [address] PCP - General Internal Medicine 08/19/21
== END 2025-03-20 08:40 | disposition home or self-care (01) ==
PROVIDERS: PCP Internal Medicine; Visit Provider Physician Assistant Medical
DX: R06.02 Shortness of breath (principal); R05.1 Acute cough; J45.901 Unspecified asthma with (acute) exacerbation

== ENCOUNTER 2025-03-20 07:58 | Outpatient (REF) | payer OTHER, SELFPAY ==
--- NOTE | ~2025-03-20 | XR_ITS ---
EXAMINATION: XR CHEST CLINICAL INFORMATION: R05.9 - Cough, unspecified COMPARISON: None available. TECHNIQUE: 2 views of the chest were obtained. FINDINGS: The cardiac, hilar, and mediastinal contours are normal. The lungs are clear bilaterally. There is no pneumothorax or pleural effusion. There is no focal osseous or soft tissue abnormality. XR/XR chest 2V IMPRESSION: Normal chest. Electronically signed by: José Miguel Mason MD 03/20/2025 08:58 AM [facility]
== END 2025-03-20 07:59 | disposition home or self-care (01) ==
LOC: HO.HMGCX 07:58
PROVIDERS: PCP Internal Medicine; Visit Provider Physician Assistant Medical
DX: R06.02 Shortness of breath (principal); R05.1 Acute cough
CPT/HCPCS: 71046; 94640

== ENCOUNTER → 2025-03-20 08:37 | Outpatient (BNV) | payer OTHER, SELFPAY | PROVIDERS: PCP Internal Medicine; Visit Provider Radiology Diagnostic Radiology | DX: R05.9 Cough, unspecified (principal) | CPT/HCPCS: 71046 ==

== ENCOUNTER 2025-03-26 08:49 | Outpatient (AMB) | payer OTHER, SELFPAY ==
--- NOTE | 2025-03-26 08:50 | MHC.OFFWIV ---
Intake Vital Signs 03/26/25 08:51 Height 5 ft 5 in Weight 155 lb 4 oz BMI 25.8 BP 98/70 Blood Pressure Location Lt brachial Position Sitting Respiration 16 Pulse 77 Pulse Source Pulse Oximeter Temp 97.4 F Temp Source Oral Pulse Oximetry (%) 100 Oxygen Delivery Method Room Air Intake Visit Reasons: EP shortness of breath cough Intake Note: pt returns to walk in clinic for non resolving cough that is now causing left lower mid-back pain and pain across shoulders. pt was recently treated with nebulizer in office 03/20/25 and rx'd with prednisone and benzonatate. appt with PCP 04/04 Patient Tobacco Use Status: Never used Tobacco Allergies pantoprazole Allergy (Unknown, Verified 03/26/25 08:59) chest pain diphenhydramine (From Benadryl) Allergy (Verified 03/26/25 08:59) Hives esomeprazole (From NEXIUM) Adverse Reaction (Mild, Verified 03/26/25 08:59) DIARRHEA sumatriptan Adverse Reaction (Verified 03/26/25 08:59) Migraine birch trees Allergy (Unknown, Uncoded 03/26/25 08:59) Sneezing oak trees Allergy (Unknown, Uncoded 03/26/25 08:59) nasal congestion SEASONAL ALLERGIES Allergy (Unknown, Uncoded 03/26/25 08:59) UNKNOWN [facility] Medical History (Updated 03/18/25 @ 14:01 by Molly Charles NP) Acute pharyngitis History of obesity Hair thinning Anemia Psoriasis Asthma Migraine Major depressive disorder, recurrent episode with anxious distress Familial hypercholesterolemia Vitamin D deficiency PCOS (polycystic ovarian syndrome) Hypothyroidism Allergy to cats Multiple environmental allergies Surgical History History of removal of ovarian cyst Family History Father Hyperlipidemia Mother Hyperlipidemia Hypertension Diabetes CVD (cardiovascular disease) Social History Household Members: Family Household Members Other:: None Housing: House Alcohol intake: never Patient Tobacco Use Status: Never used Tobacco e-Cigarette/Vaping Use: Never Used service: No Current occupational status: unemployed Cognitive needs: No Hearing needs: No Vision needs: Yes Physical Exam Vital Signs: Last Vital Signs Temp 97.4 F 03/26/25 08:51 Pulse 77 03/26/25 08:51 Resp 16 03/26/25 08:51 BP 98/70 03/26/25 08:51 Pulse Ox 100 03/26/25 08:51 Oxygen Delivery Method Room Air 03/26/25 08:51 BMI result Body Mass Index 25.8 Assessment & Plan Assessment & Plan Orders: Orders AMB Nebulizer Treatment Today J45.901 - Unspecified asthma with (acute) exacerbation XR chest 2V Today R05.9 - Cough, unspecified Medications: New ipratropium-albuterol 0.5 mg-3 mg(2.5 mg base)/3 mL 3 mL inhalation ONCE PRN 3 mL 0RF shortness of breath J45.901 - Unspecified asthma with (acute) exacerbation Coding
[2025-03-26 08:51] VITALS: BP 98/70; PULSE 77; RESP 16; TEMP 36.3; O2SAT 100; BMI 25.8
--- NOTE | 2025-03-26 08:57 | AM.OFFWIN_ITS ---
Intake Vital Signs 03/26/25 08:51 Height 5 ft 5 in Weight 155 lb 4 oz BMI 25.8 BP 98/70 Blood Pressure Location Lt brachial Position Sitting Respiration 16 Pulse 77 Pulse Source Pulse Oximeter Temp 97.4 F Temp Source Oral Pulse Oximetry (%) 100 Oxygen Delivery Method Room Air Intake Visit Reasons: EP shortness of breath cough Intake Note: pt returns to clinic with non resolving cough causing pain to left lower mid- back pain and pain across shoulders, deep breathing causing coughing. pt was seen 03/20/25 and given nebulizer treatment, rx'd with prednisone and benzonatate- completed both, has appt with her pcp 04/04/25 to discuss new asthma treatment plan. Patient Tobacco Use Status: Never used Tobacco Allergies pantoprazole Allergy (Unknown, Verified 03/26/25 08:59) chest pain diphenhydramine (From Benadryl) Allergy (Verified 03/26/25 08:59) Hives esomeprazole (From NEXIUM) Adverse Reaction (Mild, Verified 03/26/25 08:59) DIARRHEA sumatriptan Adverse Reaction (Verified 03/26/25 08:59) Migraine birch trees Allergy (Unknown, Uncoded 03/26/25 08:59) Sneezing oak trees Allergy (Unknown, Uncoded 03/26/25 08:59) nasal congestion SEASONAL ALLERGIES Allergy (Unknown, Uncoded 03/26/25 08:59) UNKNOWN Do you need a note to return to daycare/school/sports/work: No PFSH Medical History (Updated 03/18/25 @ 14:01 by Molly Charles NP) Acute pharyngitis History of obesity Hair thinning Anemia Psoriasis Asthma Migraine Major depressive disorder, recurrent episode with anxious distress Familial hypercholesterolemia Vitamin D deficiency PCOS (polycystic ovarian syndrome) Hypothyroidism Allergy to cats Multiple environmental allergies Surgical History History of removal of ovarian cyst Family History Father Hyperlipidemia Mother Hyperlipidemia Hypertension Diabetes CVD (cardiovascular disease) Social History Household Members: Family Household Members Other:: None Housing: House Alcohol intake: never Patient Tobacco Use Status: Never used Tobacco e-Cigarette/Vaping Use: Never Used service: No Current occupational status: unemployed Cognitive needs: No Hearing needs: No Vision needs: Yes Physical Exam Vital Signs: Last Vital Signs Temp 97.4 F 03/26/25 08:51 Pulse 77 03/26/25 08:51 Resp 16 03/26/25 08:51 BP 98/70 03/26/25 08:51 Pulse Ox 100 03/26/25 08:51 Oxygen Delivery Method Room Air 03/26/25 08:51 BMI result Body Mass Index 25.8 Assessment & Plan Assessment & Plan Orders: Orders AMB Nebulizer Treatment Today J45.901 - Unspecified asthma with (acute) exacerbation XR chest 2V Today R05.9 - Cough, unspecified Medications: New ipratropium-albuterol 0.5 mg-3 mg(2.5 mg base)/3 mL 3 mL inhalation ONCE PRN 3 mL 0RF shortness of breath J45.901 - Unspecified asthma with (acute) exacerbation Coding
--- OUTSIDE RECORDS SUMMARY | 2025-03-26 09:13 | XMS_ITS | Clinical Summary ---
Author Organization [facility] Address [address] [place] [address] Care Team Providers Care Belt Cleaner Name Role Phone Margaret Hillman MD Primary [...] to complete this topic Insurance [place] [phone] [employer] [facility] Care Teams Belt Cleaner Relationship Specialty Start Date End Date Margaret Hillman MD [address] [place] [address] PCP - General Internal Medicine 08/19/21
--- OUTSIDE RECORDS SUMMARY | 2025-03-26 09:13 | XMS_ITS | Clinical Summary ---
Author Organization [facility] Address [address] [place] [address] Care Team Providers Care Intake Nurse Name Role Phone Cody Solis MD Primary Care Provider [phone] Allergies Active Allergy Reactions Criticality Noted Date [...] age to complete this topic Care Teams Intake Nurse Relationship Specialty Start Date End Date Cody Solis MD PCP - General Internal Medicine 12/02/22
--- NOTE | 2025-03-26 09:34 | AM.OFFWIN_ITS ---
Intake Vital Signs 03/26/25 08:51 Height 5 ft 5 in Weight 155 lb 4 oz BMI 25.8 BP 98/70 Blood Pressure Location Lt brachial Position Sitting Respiration 16 Pulse 77 Pulse Source Pulse Oximeter Temp 97.4 F Temp Source Oral Pulse Oximetry (%) 100 Oxygen Delivery Method Room Air Intake Visit Reasons: EP shortness of breath cough Patient Tobacco Use Status: Never used Tobacco Allergies pantoprazole Allergy (Unknown, Verified 03/26/25 08:59) chest pain diphenhydramine (From Benadryl) Allergy (Verified 03/26/25 08:59) Hives esomeprazole (From NEXIUM) Adverse Reaction (Mild, Verified 03/26/25 08:59) DIARRHEA sumatriptan Adverse Reaction (Verified 03/26/25 08:59) Migraine birch trees Allergy (Unknown, Uncoded 03/26/25 08:59) Sneezing oak trees Allergy (Unknown, Uncoded 03/26/25 08:59) nasal congestion SEASONAL ALLERGIES Allergy (Unknown, Uncoded 03/26/25 08:59) UNKNOWN HPI HPI Comments History of Present Illness Details History - The patient is a 34-year-old individua l presenting with persistent cough and difficulty breathing. - She was seen here twice last week for similar symptoms and complaints. - She has a dry cough and the cough make s her SOB. - The cough is particularly severe at [facility], causing significant sleep disruption, with the patient only able to sleep for about an hour each night. - Associated back pain is described as m uscle pain without spasms, exacerbated by the coughing. - Previous interventions included a nega tive chest x-ray and a negative COVID-19 and RSV swab conducted on the , with no improvement from prednisone or cough medicine. - The patient experienced temporary reli ef from a previous breathing treatment. - She has albuterol inhaler which she aviles s been using. - She does not have a nebulizer at home. - She denies sick contacts or recent tra tony. - She denies fever, chills, sore throat, ear pain, abd pain, or n/v/d. Physical Exam General: Cooperative, healthy appearing, comfortable and no acute distress Orientation/consciousness: Patient oriented x3 Limitations: No limitations Head: Normal to inspection Ears: Hearing grossly normal bilaterally, external ears normal and TM's normal bilaterally Nose: Normal external nose present, normal nares present, and no nasal discharge present. Face and sinus: Sinuses nontender to palpation. Mouth: Normal oral and palatal mucosa present and moist mucous membranes noted. Throat: Tonsils normal. Uvula is midline. Posterior oropharynx with erythema and no exudates. Eyes: Appearance normal, both eyes and all related structures Neck: Normal visual inspection, full ROM. No lymphadenopathy noted. Respiratory: Clear to auscultation bilaterally. Normal respiratory effort, able to speak in complete sentences. No respiratory distress, not tachypneic, no tripod positioning and no use of accessory muscles. Cardiovascular: Regular rate and rhythm. Normal S1 and S2 Skin: No rashes or lesions noted Patient was informed and verbally consented to the use of an ambient scribe for clinic note documentation during this visit [facility] Medical History (Updated 03/18/25 @ 14:01 by Molly Charles NP) Acute pharyngitis History of obesity Hair thinning Anemia Psoriasis Asthma Migraine Major depressive disorder, recurrent episode with anxious distress Familial hypercholesterolemia Vitamin D deficiency PCOS (polycystic ovarian syndrome) Hypothyroidism Allergy to cats Multiple environmental allergies Surgical History History of removal of ovarian cyst Family History Father Hyperlipidemia Mother Hyperlipidemia Hypertension Diabetes CVD (cardiovascular disease) Social History Household Members: Family Household Members Other:: None Housing: House Alcohol intake: never Patient Tobacco Use Status: Never used Tobacco e-Cigarette/Vaping Use: Never Used service: No Current occupational status: unemployed Cognitive needs: No Hearing needs: No Vision needs: Yes Review of Systems Const All systems reviewed & are unremarkable except as noted in HPI and below Physical Exam Vital Signs: Last Vital Signs Temp 97.4 F 03/26/25 08:51 Pulse 77 03/26/25 08:51 Resp 16 03/26/25 08:51 BP 98/70 03/26/25 08:51 Pulse Ox 100 03/26/25 08:51 Oxygen Delivery Method Room Air 03/26/25 08:51 BMI result Body Mass Index 25.8 Results Reviewed Results Reviewed: reviewed the CXR in the office today Assessment & Plan Assessment & Plan (1) Cough: Code(s): R05.9 - Cough, unspecified Qualifiers: Cough type: acute Qualified Code(s): R05.1 - Acute cough (2) Shortness of Breath: Code(s): R06.02 - Shortness of breath Plan Most likely asthma exacerbation vs URI vs bronchitis vs CAP vs viral illness nebulizer treatment in the office plan - Plan to repeat chest x-ray to rule out pneumonia. - Repeat breathing treatment as previous treatment provided temporary relief. - use albuterol as needed - tylenol or motrin as needed - prednisone taper - tessalon perles as needed for cough - will add z-dev as directed to cover for atypicals - Advised her to go to the ER if she continues to have SOB, cough, etc - needs to ask her PCP for a nebulizer - follow up with PCP Orders: Orders AMB Nebulizer Treatment Today J45.901 - Unspecified asthma with (acute) exacerbation XR chest 2V Today R05.9 - Cough, unspecified Medications: New ipratropium-albuterol 0.5 mg-3 mg(2.5 mg base)/3 mL 3 mL inhalation ONCE PRN 3 mL 0RF shortness of breath J45.901 - Unspecified asthma with (acute) exacerbation benzonatate 200 mg PO BEDTIME PRN 10 caps 0RF cough methylprednisolone PO PER PKG DIR for 6 days 21 ea 0RF Coding Level of Care Code Est Pt Level 4 (35269) Diagnoses Acute cough R05.1 Cough type: acute Shortness of Breath R06.02
== END 2025-03-26 10:50 | disposition home or self-care (01) ==
PROVIDERS: PCP Internal Medicine; Visit Provider Physician Assistant Medical
DX: R05.1 Acute cough (principal); R06.02 Shortness of breath; J45.901 Unspecified asthma with (acute) exacerbation

== ENCOUNTER 2025-03-26 08:49 | Outpatient (REF) | payer OTHER, SELFPAY ==
--- NOTE | ~2025-03-26 | XR_ITS ---
EXAMINATION: XR CHEST CLINICAL INFORMATION: R05.9 - Cough, unspecified COMPARISON: [facility] chest x-ray most recent March 20, 2025 TECHNIQUE: 2 views of the chest were obtained. FINDINGS: No significant abnormality is noted involving the heart, lungs, mediastinum, bony thorax or soft tissues. XR/XR chest 2V IMPRESSION: Unremarkable examination. Electronically signed by: Ingris Cárdenas MD 03/26/2025 09:28 AM [facility]
== END 2025-03-26 08:50 | disposition home or self-care (01) ==
LOC: HO.HMGCX 08:49
PROVIDERS: PCP Internal Medicine; Visit Provider Physician Assistant Medical
DX: R05.1 Acute cough (principal); R06.02 Shortness of breath
CPT/HCPCS: 71046; 94640

== ENCOUNTER → 2025-03-26 09:15 | Outpatient (BNV) | payer OTHER, SELFPAY | PROVIDERS: PCP Internal Medicine; Visit Provider Radiology Diagnostic Radiology | DX: R05.9 Cough, unspecified (principal) | CPT/HCPCS: 71046 ==

== ENCOUNTER 2025-04-04 10:45 | Outpatient (REF) | payer OTHER, SELFPAY ==
[2025-04-04 13:00] LABS: MANUAL DIFF FLAG NO
[2025-04-04 13:06] LABS: Hematocrit 36.4 % (37.0-47.0); Hemoglobin 11.9 g/dl (12.0-16.0); Imm Gran Abs Auto 0.02 X10*3/uL (0.00-0.03); Imm Gran Pct Auto 0.3 % (0.0-0.4); Lymphocytes Absolute Auto 1.8 X10*3/uL (1.2-4.9); Mean Corpuscular HGB Conc 32.7 g/dl (31.0-35.0); Mean Corpuscular Hemoglobin 28.3 pg (27.0-33.0); Mean Corpuscular Volume 86.5 fL (80.0-98.0); NRBC Abs Auto 0.000 X10*3/uL (0.0-0.012); NRBC Pct Auto 0.0 /100WBC (0.0-0.2); Platelet Count 443 X10*3/uL (160-400); Red Blood Count 4.21 X10*6/uL (4.20-5.50); White Blood Count 7.5 X10*3/uL (4.8-10.8)
[2025-04-04 14:37] LABS: Cholesterol 287 mg/dL (<200); Free T4 (Free Thyroxine) 1.42 ng/dL (0.71-1.85); HDL Cholesterol 47 mg/dL (>40); Iron 53 mcg/dL (30-160); Percent Iron Saturation 22 % (15-50); Thyroid Stimulating Hormone 0.68 uIU/mL (0.32-4.0); Total Iron Binding Capacity 246 mcg/dL (228-428); Triglycerides 80 mg/dL (<150); Unsaturated Iron Binding 193 ug/dL
== END 2025-04-04 10:46 | disposition home or self-care (01) ==
LOC: HO.HMGCLDS 10:45
PROVIDERS: Absent Provider Internal Medicine Endocrinology, Diabetes & Metabolism; PCP Internal Medicine; Visit Provider Internal Medicine
DX: E03.9 Hypothyroidism, unspecified (principal); D64.9 Anemia, unspecified; E78.019 Familial hypercholesterolemia, unspecified; Z91.09 Other allergy status, other than to drugs and biological substances; J45.40 Moderate persistent asthma, uncomplicated
CPT/HCPCS: 36415; 80061; 83540; 84439; 84443; 85025

== ENCOUNTER 2025-04-04 10:45 | Outpatient (AMB) | payer OTHER, SELFPAY ==
[2025-04-04 11:25] VITALS: BP 90/60; PULSE 62; RESP 16; TEMP 36.7; O2SAT 100; BMI 26.6
--- NOTE | 2025-04-04 11:25 | A.OFFPC_ITS ---
Vital Signs 04/04/25 11:25 Height 5 ft 5 in Weight 160 lb BMI 26.6 BP 90/60 Blood Pressure Location Lt brachial Position Sitting Respiration 16 Pulse 62 Pulse Source Pulse Oximeter Temp 98.0 F Temp Source Oral Pulse Oximetry (%) 100 Oxygen Delivery Method Room Air Intake Visit Reasons: asthma tx plan Intake Note: Pt is here today discuss asthma treatment plan Contracts Representative Required: No Allergies pantoprazole Allergy (Unknown, Verified 04/04/25 11:31) chest pain diphenhydramine (From Benadryl) Allergy (Verified 04/04/25 11:31) Hives esomeprazole (From NEXIUM) Adverse Reaction (Mild, Verified 04/04/25 11:31) DIARRHEA sumatriptan Adverse Reaction (Verified 04/04/25 11:31) Migraine birch trees Allergy (Unknown, Uncoded 04/04/25 11:31) Sneezing oak trees Allergy (Unknown, Uncoded 04/04/25 11:31) nasal congestion SEASONAL ALLERGIES Allergy (Unknown, Uncoded 04/04/25 11:31) UNKNOWN Medication List - Last Reconciled 04/04/25 by Margaret Hillman MD albuterol sulfate 90 mcg/actuation (Ventolin HFA) 2 puffs inhalation Q6H PRN alprazolam 0.5 mg PO DAILY bupropion HCl XL 150 mg PO QAM cetirizine (Zyrtec) 10 mg PO DAILY PRN ergocalciferol (vitamin D2) 1,250 mcg PO QWEEK levothyroxine 88 mcg PO DAILY metformin ER 500 mg PO DAILY selegiline (Emsam) 1 patch topical DAILY tirzepatide (weight loss) (Zepbound) 7.5 mg (0.5 mL) subcut QWEEK Tobacco use date assessed: 04/04/25 Dental Screening Dental Screen Date: 04/04/25 Did you have a dental visit in the last 12 months?: No Did you have a dental problem in the last 6 months where you did not have access to dental care?: No Was dental information given to patient?: Patient has dentist HPI asthma tx plan HPI Details The patient is a 34 year old female presenting for management of uncontrolled asthma. She reports needing to use her albuterol inhaler daily, and experiences episodes of wheezing and chest tightness where she feels unable to breathe. She recalls one severe episode that required a nebulizer treatment in the office. The patient's symptoms are worse in the fall and spring, and also when the heat is turned on in the winter. Allergy testing performed in 2000 revealed allergies to cats, dogs, birds, and rabbits, with no food allergies. She reports a significant worsening of her breathing after her children are exposed to her in- laws' cats, and feels much better when she can avoid this exposure. Her history includes past use of oral prednisone for asthma exacerbations, once for a month at age 20 and for a couple of weeks at age 17. She does not recall ever having a pulmonary function test to diagnose her asthma. She has never had pneumonia. [facility] Medical History (Updated 04/04/25 @ 11:56 by Margaret Hillman MD) Moderate persistent asthma History of obesity Hair thinning Anemia Psoriasis Asthma Migraine Major depressive disorder, recurrent episode with anxious distress Familial hypercholesterolemia Vitamin D deficiency PCOS (polycystic ovarian syndrome) Hypothyroidism Allergy to cats Multiple environmental allergies Surgical History History of removal of ovarian cyst Family History Father Hyperlipidemia Mother Hyperlipidemia Hypertension Diabetes CVD (cardiovascular disease) Social History Household Members: Family Household Members Other:: None Housing: House Alcohol intake: never Patient Tobacco Use Status: Never used Tobacco e-Cigarette/Vaping Use: Never Used service: No Current occupational status: unemployed Cognitive needs: No Hearing needs: No Vision needs: Yes Questionnaire PHQ-9 Over the last 2 weeks, how often have you been bothered by any of the following problems? 1. Little interest or pleasure in doing things: more than half the days 2. Feeling down, depressed, or hopeless: several days 3. Trouble falling or staying asleep, or sleeping too much: more than half the days 4. Feeling tired or having little energy: nearly every day 5. Poor appetite or overeating: nearly every day 6. Feeling bad about yourself - or that you are a failure or have let yourself or your family down: not at all 7. Trouble concentrating on things, such as reading the newspaper or watching television: several days 8. Moving or speaking so slowly that other people could have noticed. Or the opposite - being so fidgety or restless that you have been moving around a lot more than usual: several days 9. Thoughts that you would be better off or of hurting yourself in some way: not at all Total score: 13 Source: Developed by Drs. Giuseppe Padilla, Silvia Del Toro, Chepe Brewster and colleagues, with an educational jaimee from [employer]. Thrive Questionnaire Date Thrive assessed: 01/03/25 I am a: Patient What is your living situation today?: I have a steady place to live Within the past 12 months, did the food you bought not last and you didn't have the money to get more?: Never true Within the past 12 months, did you worry whether your food would run out before you got money to buy more?: Never true Do you have trouble paying for medicines?: I choose not to answer this question Do you have trouble getting transportation to medical appointments?: No Do you have trouble paying your heating and electricity bill?: I choose not to answer this question Do you have trouble taking care of your child, family member or friend?: No Do you have trouble with day-to-day activities such as bathing, preparing meals, shopping, managing finances, etc.?: No Are you currently unemployed and looking for a job?: I choose not to answer this question Are you interested in more education?: I choose not to answer this question Please select the resources that you would like help with: None Currently or been in a relationship where the following occur: No concerns reported THRIVE Score: 0 AUDIT C Alcohol Use Questionnaire (AUDIT-C) 1. How often do you have a drink containing alcohol?: Never Total Score: 0 CHARO-7 AMB Questionnaire CHARO-7 Date CHARO - 7 assessed: 01/03/25 Feeling nervous, anxious, or on edge: 0 = Not at all Not being able to stop or control worryin = Not at all Worrying too much about different things: 0 = Not at all Trouble relaxin = Several days Being so restless that it is hard to sit still: 0 = Not at all Becoming easily annoyed or irritable: 1 = Several days Feeling afraid as if something awful might happen: 0 = Not at all Total CHARO-7 score (0-4 normal; 5-9 mild; 10-14 moderate; 15-21 severe): 2 Source: Developed by Drs. Giuseppe Padilla, Silvia Del Toro, Chepe Brewster and colleagues, with an educational jaimee from [employer]. Review of Systems Const All systems reviewed & are unremarkable except as noted in HPI and below Physical exam (Primary Care) Vital Signs: Last Vital Signs Temp 98.0 F 04/04/25 11:25 Pulse 62 04/04/25 11:25 Resp 16 04/04/25 11:25 BP 90/60 04/04/25 11:25 Pulse Ox 100 04/04/25 11:25 Oxygen Delivery Method Room Air 04/04/25 11:25 BMI result Body Mass Index 26.6 Tobacco/Smoking Status: Tobacco use Status Tobacco use date assessed 04/04/25 04/04/25 11:31 Patient Tobacco Use Status Never used Tobacco 04/04/25 11:31 e-Cigarette/Vaping Use Never Used 04/04/25 11:31 PHQ-9: PHQ-9 Score PHQ-9: Total score 13 04/04/25 12:02 Thrive Assessment: Date of Thrive Assessment Date Thrive assessed 01/03/25 04/04/25 11:31 Currently or been in a relationship where the following occur: No concerns reported Const General: cooperative, comfortable and no acute distress Nutritional Appearance: overweight Orientation/consciousness: patient oriented x3 HENMT Head: Yes normocephalic and Yes atraumatic Ears: hearing grossly normal bilaterally General nose exam: Normal external nose present and No nasal discharge present Eyes General: appearance normal, both eyes and all related structures Neck Neck: Yes full ROM, Yes no lymphadenopathy, Yes no meningeal signs and Yes supple Resp Effort & Inspection: normal respiratory effort and able to speak in complete sen tences Auscultation: clear to auscultation bilaterally Cardio Other: S1-S2 present regular rate and rhythm GI Palpation (GI): Soft to palpation, nontender, no guarding and no masses Auscultation: normal bowel sounds Back/Spine/Pelvis Back: No back tenderness Skin General skin exam: no rashes or lesions noted Neuro General: patient oriented x3, gait normal, moves all extremities, no meningeal signs and no focal motor deficits Extrem General: Yes normal to inspection, Yes full ROM, Yes no joint enlargement, Yes no pedal edema and Yes normal gait Psych Appearance: grossly normal and well kempt Mental Status: mental status grossly normal Speech and movement: Normal speech and movement present Affect: normal affect Coding Level of Care Code Est Pt Level 4 (86393) Diagnoses Multiple environmental allergies Z91.09 Moderate persistent asthma J45.40 Anemia D64.9 Assessment & Plan Assessment & Plan (1) Multiple environmental allergies: Code(s): Z91.09 - Other allergy status, other than to drugs and biological substances Category: Medical Plan: Referral to Allergy immunology associates ordered (2) Moderate persistent asthma: Code(s): J45.40 - Moderate persistent asthma, uncomplicated Category: Medical Plan: The patient's daily use of a rescue inhaler indicates her asthma is uncontrolled A prescription for Symbicort will be sent, starting at one inhalation twice daily for maintenance, with the option to increase to two inhalations twice daily if symptoms are severe. She has been counseled to rinse her mouth after use to prevent thrush. A spacer will be prescribed to improve inhaler technique. An albuterol nebulizer solution will be prescribed for use every 4 hours as needed for severe symptoms, with a warning about potential palpitations. Nebulizer machine ordered A referral will be placed to see a scooping machine tender, Dr. Munoz. And an human performance consultant, (3) Anemia: Code(s): D64.9 - Anemia, unspecified Category: Medical Plan: Repeat CBC and iron profile Orders: Orders Complete Blood Count Auto Diff 04/04/25 D64.9 - Anemia, unspecified IRON PROFILE 04/04/25 D64.9 - Anemia, unspecified Referrals Allergy & Immunology Referral J30.81 - Allergic rhinitis due to animal (cat) (dog) hair and dander, J45.40 - Moderate persistent asthma, uncomplicated, Z91.09 - Other allergy status, other than to drugs and biological substances Pulmonology Referral J45.40 - Moderate persistent asthma, uncomplicated Medications: New Flexichamber (inhalational spacing device) As directed 1 ea 0RF NS J45.40 - Moderate persistent asthma, uncomplicated albuterol sulfate 1.25 mg (3 mL) inhalation QID PRN 75 mL 0RF shortness of breath or wheezing NS J45.40 - Moderate persistent asthma, uncomplicated nebulizers (AeroEclipse II Nebulizer) Use every 4 hours as needed for episodes of bronchospasm/wheezing 1 ea 0RF J45.40 - Moderate persistent asthma, uncomplicated Symbicort 160-4.5 mcg/actuation (budesonide-formoterol) 2 puffs inhalation Q12H 10.2 grams 6RF NS J45.40 - Moderate persistent asthma, uncomplicated clotrimazole 1% 1 appl topical BID 45 grams 1RF 2 weeks
--- OUTSIDE RECORDS SUMMARY | 2025-04-04 13:28 | XMS_ITS | Clinical Summary ---
Author Organization [facility]ly [facility] Address [address] [place] [address] Care Team Providers Care Hvac Operations Technician Name Role Phone Margaret Hillman MD Primary Care Provider [phone] Social History Tobacco Use Types Packs/Day Years [...] complete this topic [place] [address] [employer] Care Teams Hvac Operations Technician Relationship Specialty Start Date End Date Margaret Hillman MD [address] [place] [address] PCP - General Internal Medicine 08/19/21
--- OUTSIDE RECORDS SUMMARY | 2025-04-04 13:28 | XMS_ITS | Clinical Summary ---
Author Organization [facility] Prior to 09/29/[address] [place] [address] Care Team Providers Care Sleeve Bottom Feller Name Role Phone Cody Solis MD Primary Care Provider [phone] Allergies Active Allergy Reactions Criticality Noted Date [...] age to complete this topic Care Teams Sleeve Bottom Feller Relationship Specialty Start Date End Date Cody Solis MD PCP - General Internal Medicine 12/02/22
== END 2025-04-04 12:39 | disposition home or self-care (01) ==
LOC: HO.HMCC 10:47
PROVIDERS: PCP Internal Medicine; Visit Provider Internal Medicine
DX: Z91.09 Other allergy status, other than to drugs and biological substances (principal); J45.40 Moderate persistent asthma, uncomplicated; D64.9 Anemia, unspecified